=== PATIENT | female | born 1940 ===

== ENCOUNTER 2016-08-26 14:40 | Observation (INO) | payer MEDICARE, MEDICAID ==
[2016-08-26 14:40] VITALS: BMI 27.6
--- NOTE | 2016-08-26 15:06 | ED PDOC ---
HPI: Psych/Substance Abuse Time Seen by Provider: 08/26/16 14:48 Chief Complaint (Nursing): Psychiatric Evaluation Chief Complaint (Provider): Psychiatric Evaluation History Per: EMS, Other (Police) History/Exam Limitations: no limitations Onset/Duration Of Symptoms: Hrs Current Symptoms Are (Timing): Gone Now Additional Complaint(s): Maggi Appiah is a 76 year old female that was brought to the ED via EMS after the patient's social science manager called 911 because the patient was refusing to take her medication for schizophrenia and expressed homicidal ideations. According to police, mobile crisis was on the scene. Patient denies any CP, SOB , or muscle weakness. She is calm and cooperative in ED. Past Medical History Reviewed: Historical Data, Nursing Documentation, Vital Signs Vital Signs: Last Vital Signs Temp 98.2 F 08/26/16 14:43 Pulse 69 08/26/16 14:43 Resp 16 08/26/16 14:43 BP 163/79 H 08/26/16 14:43 Pulse Ox 98 08/26/16 14:43 - Medical History PMH: Anxiety, Bipolar Disorder, Diabetes (type II), HTN, Hypercholesterolemia, Schizophrenia Denies: Hepatitis, HIV, Chronic Kidney Disease, Seizures, Sexually Transmitted Disease - Surgical History Surgical History: Appendectomy - Family History Family History: States: Unknown Family Hx - Home Medications Home Medications: Ambulatory Orders Medication Instructions Recorded Aspirin [Ecotrin] 81 mg PO DAILY 08/26/16 Atorvastatin [Lipitor] 40 mg PO HS 08/26/16 Carvedilol [Coreg] 25 mg PO BID 08/26/16 Cholecalciferol [Vitamin D 1000 IU] 1,000 unit PO DAILY 08/26/16 Divalproex [Depakote] 500 mg PO BID 08/26/16 Famotidine [Pepcid] 20 mg PO BID 08/26/16 Hydrochlorothiazide [Microzide] 12.5 mg PO DAILY 08/26/16 Lisinopril [Zestril] 20 mg PO BID 08/26/16 Olanzapine [Zyprexa] 5 mg PO DAILY 08/26/16 Sennosides A and B [Senokot Tab] 1 tab PO DAILY 08/26/16 amLODIPine [Norvasc] 5 mg PO DAILY 08/26/16 - Allergies Allergies/Adverse Reactions: Allergies Allergy/AdvReac Type Severity Reaction Status Date / Time No Known Allergies Allergy Verified 03/05/16 16:38 Review of Systems Constitutional: Negative for: Weakness Cardiovascular: Negative for: Chest Pain Respiratory: Negative for: Shortness of Breath Psych: Negative for: Suicidal ideation (currently denies SI/HI) Physical Exam - Reviewed Nursing Documentation Reviewed: Yes Vital Signs Reviewed: Yes - Physical Exam Appears: Positive for: Non-toxic, No Acute Distress (Patient is calm and cooperative. ) Head Exam: Positive for: ATRAUMATIC, NORMOCEPHALIC Skin: Positive for: Normal Color, Warm Cardiovascular/Chest: Positive for: Regular Rate, Rhythm. Negative for: Murmur Respiratory: Positive for: Normal Breath Sounds. Negative for: Wheezing Neurologic/Psych: Positive for: Alert, Oriented. Negative for: Motor/Sensory Deficits - Laboratory Results Result Diagrams: 08/26/16 15:13 08/26/16 15:13 - ECG O2 Sat by Pulse Oximetry: 98 (RA) Pulse Ox Interpretation: Normal Medical Decision Making Medical Decision Making: Impression: Psychiatric Evaluation Plan: * CMP * CBC * Alcohol Serum * Troponin I * Urine Culture * Urinalysis * EKG * Chest X-Ray * Crisis Evaluation * 1:1 Observation Endorsed pending US for clearance for [facility] evaluation. Ativan and Haldol given for psychosis/delusions and aggression. Scribe Attestation: Documented by Dionne Whatley, acting as a scribe for Zita Chatterjee PA-C. Provider Scribe Attestation: All medical record entries made by the Scribe were at my direction and personally dictated by me. I have reviewed the chart and agree that the record accurately reflects my personal performance of the history, physical exam, medical decision making, and the department course for this patient. I have also personally directed, reviewed, and agree with the discharge instructions and disposition. Disposition - Clinical Impression Clinical Impression: Psychosis - Patient ED Disposition Is Patient to be Admitted: No - Disposition Disposition: Transfer of Care Disposition Time: 00:00 Condition: STABLE
[2016-08-26 15:24] LABS: MEAN CELL VOLUME 95.1 fl (81.0-99.0); MEAN CORPUSCULAR HEMOGLOBIN 32.2 pg (27.0-31.0); MEAN CORPUSCULAR HGB CONC 33.9 g/dL (33.0-37.0); RBC 4.03 Mil/uL (3.80-5.20); RED CELL DISTRIBUTION WIDTH 15.3 % (11.5-14.5); WHITE BLOOD COUNT 6.3 K/uL (4.8-10.8)
[2016-08-26 15:39] LABS: ALB/GLOB RATIO 1.1 (1.0-2.1); ALT/SGPT 105 U/L (9-52); AST/SGOT 115 U/L (14-36); BLOOD UREA NITROGEN 20 mg/dl (7-17); GFR AFRICAN-AMERICAN > 60; GFR NON-AFRICAN AMERICAN > 60
--- NOTE | 2016-08-26 16:47 | RAD ---
HISTORY: psychiatric evaluation COMPARISON: Chest x-ray performed 03/10/16, CTA chest performed 03/11/16 TECHNIQUE: Chest, one view. FINDINGS: LUNGS: Triangular opacity within the right lateral lung apex may be related to pleural thickening and summation artifact; correlate clinically. Please note that chest x-ray has limited sensitivity for the detection of pulmonary masses. PLEURA: No significant pleural effusion identified. No definite pneumothorax . CARDIOVASCULAR: Heart size appears top normal. OSSEOUS STRUCTURES: Degenerative changes of the spine and shoulders. Osseous demineralization. VISUALIZED UPPER ABDOMEN: Unremarkable. OTHER FINDINGS: None. IMPRESSION: Triangular opacity within the right lateral lung apex may be related to pleural thickening and summation artifact; correlate clinically. Chest PA and lateral may be considered for further assessment. Alternatively, a CT of the chest may be considered.
[2016-08-26 18:31] LABS: SQUAMOUS EPITHIAL < 1 /hpf (0-5); URINE BILIRUBIN NEGATIVE (NEGATIVE); URINE BLOOD NEGATIVE (NEGATIVE); URINE CLARITY CLEAR (Clear); URINE COLOR STRAW (YELLOW); URINE GLUCOSE (UA) NEG (Normal); URINE LEUKOCYTE ESTERASE TRACE Leu/uL (Negative); URINE NITRATE NEGATIVE (NEGATIVE); URINE PROTEIN NEGATIVE (NEGATIVE); URINE UROBILINOGEN 0.2-1.0 mg/dL (0.2-1.0)
[2016-08-26 18:51] LABS: BARBITURATES, UR NEGATIVE (NEGATIVE); BENZODIAZEPINES, UR NEGATIVE (NEGATIVE); OPIATES, UR NEGATIVE (NEGATIVE); PHENCYCLIDINE, UR NEGATIVE (NEGATIVE)
--- NOTE | 2016-08-27 01:49 | US ---
EXAM: US Abdomen Limited, Right Upper Quadrant CLINICAL HISTORY: 76 years old, female; Abnormal findings; Abnormal lab test; Elevated liver enzymes; Additional info: Abnormal lfts TECHNIQUE: Real-time ultrasound of the right upper quadrant with image documentation. EXAM DATE/TIME: 08/26/2016 4:02 PM COMPARISON: There are no prior studies for comparison. FINDINGS: Liver: Hepatic texture is mildly heterogeneous. There is hepatopedal flow in the main portal vein. Gallbladder: Gallbladder is distended with no stones, sludge or wall thickening. Common bile duct: Common bile duct measures 4.3 mm in diameter. Pancreas: Pancreas is partially obscured by bowel gas. Visualized portion is echogenic. Right kidney: Right kidney is not optimally demonstrated. There are multiple right renal cysts. Aorta: Visualized portions of the aorta and inferior vena cava are unremarkable. IMPRESSION: No gallstones or ductal dilatation; limited evaluation of the pancreas; multiple renal cysts
--- NOTE | 2016-08-27 01:50 | ED PDOC ---
- Laboratory Results Result Diagrams: 08/26/16 15:13 08/26/16 15:13 - ECG O2 Sat by Pulse Oximetry: 98 (RA) - Progress ED Course And Treament: case signed out to creative services writer pending US for elevated LFTs pt required [facility] [place] Pt stable in ED at this time. Medical Decision Making Medical Decision Making: US: FINDINGS: Liver: Hepatic texture is mildly heterogeneous. There is hepatopedal flow in the main portal vein. Gallbladder: Gallbladder is distended with no stones, sludge or wall thickening. Common bile duct: Common bile duct measures 4.3 mm in diameter. Pancreas: Pancreas is partially obscured by bowel gas. Visualized portion is echogenic. Right kidney: Right kidney is not optimally demonstrated. There are multiple right renal cysts. Aorta: Visualized portions of the aorta and inferior vena cava are unremarkable. IMPRESSION: No gallstones or ductal dilatation; limited evaluation of the pancreas; multiple renal cysts Thank you for allowing us to participate in the care of your patient. Dictated and Authenticated by: Eleni Daniels MD 08/27/2016 1:48 AM Eastern Time ([place] & [place]) Pt is medically stable for [facility] [place] at this time. Disposition - Clinical Impression Clinical Impression: Psychosis - POA Present On Arrival: None - Disposition Disposition: Transfer of Care Disposition Time: 06:00 Patient Signed Over To: Jamel Reed ([facility]) Progress Note - Review of Symptoms General: No: Chills, Night Sweats, Fatigue, Malaise, Appetite, Other HEENT: No: Head Aches, Visual Changes, Eye Pain, Ear Pain, Dysphasia, Sinus Congestion, Post Nasal Drip, Sore Throat, Other Pulmonary: No: Dyspnea, Cough, Pleuritic Chest Pain, Other Cardiovascular: No: Chest Pain, Palpitations, Orthopnea, Paroxysmal Noc. Dyspnea , Edema, Light Headedness, Other Gastrointestinal: No: Nausea, Vomiting, Abdominal Pain, Diarrhea, Constipation, Melena, Hematochezia, Other Genitourinary: No: Dysuria, Frequency, Incontinence, Hematuria, Retention, Other Musculoskeletal: No: Muscle Pain, Joint Pain, Other Neurological: No: Weakness, Numbness, Incoordination, Change in speech, Confusion, Seizures, Other
--- NOTE | 2016-08-27 05:50 | ED PDOC ---
- Laboratory Results Result Diagrams: 08/26/16 15:13 08/26/16 15:13 - ECG O2 Sat by Pulse Oximetry: 98 (RA) Medical Decision Making Medical Decision Making: Patient s/o from [facility] at 0600 pending [facility] screening. Patient s/o to Dr. Cabrera at 0700 pending [facility] screening. Scribe Attestation: Documented by Narinder Yeh acting as a scribe for Jamel Reed MD. Provider Scribe Attestation: All medical record entries made by the Scribe were at my direction and personally dictated by me. I have reviewed the chart and agree that the record accurately reflects my personal performance of the history, physical exam, medical decision making, and the department course for this patient. I have also personally directed, reviewed, and agree with the discharge instructions and disposition. Disposition - Clinical Impression Clinical Impression: Psychosis - POA Present On Arrival: None - Disposition Disposition: Transfer of Care Disposition Time: 07:00 Condition: STABLE Patient Signed Over To: Luke Cabrera Handoff Comments: pending [facility] screening
--- NOTE | 2016-08-27 11:35 | CP.PCM.CON ---
History of Present Illness - History of Present Illness History of Present Illness: Psychiatry consult note CC: "I want to go home" HPI: 76 year old female brought to this ED by EMS. As per triage note, Pts social worker health services called 911 during home visit secondary to Pt expressing homicidal ideations. Pt is very hostile with this freelance copywriter reporting that she hates social workers and will not speak to them. After this freelance copywriter explained to Pt that this freelance copywriter was not a social worker health services she reported that she still wants to hurt this freelance copywriter by "sticking something between this writers legs". She was also observed to be very hostile and saying profanities to staff. Pt reports that she is at the hospital because she is with twins. Pt is paranoid that someone will touch her babies and reports she wants to sign something stating that no one will touch her babies. She also reports that her is here and is a doctor and reports she will know if anyone touches him, however, Pts is not present. Pt appears bizarre, delusional and tangential. At this time, Pt is refusing admission and appears to be in acute psychiatric distress. Pt will be referred to [facility] for screening. Patient continues to be delusional, stating that she is . She continues to believe that she does not have any acute medical or psychiatric problems. She can not understand why she is in the hospital, nor is she able to state the risks/benefits of receiving treatment. She believes that her only problem is allergies. Past Psychiatry History: History of schizoaffective disorder, multiple psychiatric admissions. Pt has prior admissions to [facility] and [facility]. As per Pt's psychiatrist, Dr. Mckeon, Pt was recently d/c from [facility] where she spent a "long time". Pts psychiatrist reports at this time she does not have exact dates as she does not have access to Pt record at this time. Medical history: H/o [place], CAD, chronic mild hyponatremia, DM, HTN Social History: Lives alone, from , no children; No drugs, alcohol; Pt's only family is nephew Nicolas Lindoz [phone]. From the Family History-No known family history of psychiatric illness Allergies: NKDA MSE: MSE: A + O x person, location. calm and cooperative. good eye contact. speech normal. mood "good". affect-full range. NO AH/VH/SI/HI. +Various delusions. Poor insight and judgment. Impression: 76 yo female, with history of Schizoaffective Disorder, DM , HTN, presents acutely decompensated in the setting Recommendation: -Screen for involuntary admission. Past Patient History - Infectious Disease Hx of Infectious Diseases: None - Past Medical History & Family History Past Medical History?: Yes - Past Social History Smoking Status: Never Smoked - CARDIAC Hx Hypercholesterolemia: Yes Hx Hypertension: Yes - PULMONARY Hx Tuberculosis: No - NEUROLOGICAL Hx Seizures: No - HEENT Hx HEENT Problems: No - RENAL Hx Chronic Kidney Disease: No - ENDOCRINE/METABOLIC Hx Diabetes Mellitus Type 2: Yes - HEMATOLOGICAL/ONCOLOGICAL Hx Human Immunodeficiency Virus (HIV): No - INTEGUMENTARY Hx Dermatological Problems: No - MUSCULOSKELETAL/RHEUMATOLOGICAL Hx Falls: Yes - GASTROINTESTINAL Hx Gastrointestinal Disorders: Yes Hx Constipation: Yes - GENITOURINARY/GYNECOLOGICAL Hx Sexually Transmitted Disorders: No - PSYCHIATRIC Hx Anxiety: Yes Hx Bipolar Disorder: Yes Hx Schizophrenia: Yes - SURGICAL HISTORY Hx Appendectomy: Yes - ANESTHESIA Hx Anesthesia: Yes Hx Anesthesia Reactions: No Meds Allergies/Adverse Reactions: Allergies Allergy/AdvReac Type Severity Reaction Status Date / Time No Known Allergies Allergy Verified 03/05/16 16:38 Results - Vital Signs Recent Vital Signs: Last Vital Signs Temp 97.7 F 08/27/16 08:21 Pulse 59 L 08/27/16 08:21 Resp 19 08/27/16 08:21 BP 172/76 H 08/27/16 08:21 Pulse Ox 99 08/27/16 08:21 - Labs Result Diagrams: 08/26/16 15:13 08/26/16 15:13 Labs: Laboratory Results - last 24 hr 08/26/16 08/26/16 18:15 18:15 Urine Color Straw Urine Clarity Clear Urine pH 7.0 Ur Specific [place] 1.009 Urine Protein Negative Urine Glucose (UA) Neg Urine Ketones Negative Urine Blood Negative Urine Nitrate Negative Urine Bilirubin Negative Urine Urobilinogen 0.2-1.0 Ur Leukocyte Esterase Trace Urine RBC (Auto) < 1 Urine Microscopic WBC 8 H Ur Squamous Epith Cells < 1 Urine Opiates Screen Negative Urine Methadone Screen Negative Ur Barbiturates Screen Negative Ur Phencyclidine Scrn Negative Ur Amphetamines Screen Negative U Benzodiazepines Scrn Negative U Oth Cocaine Metabols Negative U Cannabinoids Screen Negative
--- NOTE | 2016-08-27 21:07 | ED PDOC ---
- Laboratory Results Result Diagrams: 08/26/16 15:13 08/26/16 15:13 - ECG O2 Sat by Pulse Oximetry: 97 - Progress ED Course And Treament: pt is stable in ED pending [facility] disposition. Medical Decision Making Medical Decision Making: Pt has accepted [facility] and will be transfered. PT stable and well appearing. Disposition - Clinical Impression Clinical Impression: Psychosis - POA Present On Arrival: None - Disposition Disposition: Discharged to [facility] Hospital Disposition Time: 01:43 Condition: STABLE Progress Note - Review of Symptoms General: No: Chills, Night Sweats, Fatigue, Malaise, Appetite, Other HEENT: No: Head Aches, Visual Changes, Eye Pain, Ear Pain, Dysphasia, Sinus Congestion, Post Nasal Drip, Sore Throat, Other Pulmonary: No: Dyspnea, Cough, Pleuritic Chest Pain, Other Cardiovascular: No: Chest Pain, Palpitations, Orthopnea, Paroxysmal Noc. Dyspnea , Edema, Light Headedness, Other Gastrointestinal: No: Nausea, Vomiting, Abdominal Pain, Diarrhea, Constipation, Melena, Hematochezia, Other Genitourinary: No: Dysuria, Frequency, Incontinence, Hematuria, Retention, Other Musculoskeletal: No: Muscle Pain, Joint Pain, Other Neurological: No: Weakness, Numbness, Incoordination, Change in speech, Confusion, Seizures, Other
[2016-08-28 01:38] VITALS: BP 134/72; PULSE 68; RESP 16; TEMP 98
--- NOTE | 2016-08-28 11:48 | CARD ---
APPROVED REPORT EKG Measurement Heart [id number] [place] [id number] <Conclusion> Sinus bradycardia with premature atrial complexes Left axis deviation Voltage criteria for left ventricular hypertrophy Abnormal ECG
[2016-08-28 14:46] VITALS: O2SAT 98
== END 2016-08-28 03:15 | disposition short-term general hospital (02) ==
LOC: H.ER 14:40 → H.EROBSV 17:52
PROVIDERS: ADMIT Emergency Medicine; ATTEND Emergency Medicine
DX: F25.9 Schizoaffective disorder, unspecified (principal); E11.9 Type 2 diabetes mellitus without complications; E78.00 Pure hypercholesterolemia, unspecified; F31.9 Bipolar disorder, unspecified; I10 Essential (primary) hypertension; I25.10 Atherosclerotic heart disease of native coronary artery without angina pectoris; I25.2 Old myocardial infarction; R45.850 Homicidal ideations; Z79.899 Other long term (current) drug therapy; Z90.49 Acquired absence of other specified parts of digestive tract; F41.9 Anxiety disorder, unspecified
CPT/HCPCS: 71010; 76705; 80053; 81003; 82948; 84484; 85027; 87086; 93005; 96372; 99284; G0378; G0480; J1630; J2060

== ENCOUNTER 2017-02-25 12:23 | Emergency (ER) | payer MEDICAID, MEDICARE ==
[2017-02-25 12:23] VITALS: BMI 27.6
--- NOTE | 2017-02-25 13:18 | ED PDOC ---
HPI: Psych/Substance Abuse Time Seen by Provider: 02/25/17 12:33 Chief Complaint (Nursing): Altered Mental Status History Per: Patient History/Exam Limitations: no limitations Current Symptoms Are (Timing): Still Present Severity: Moderate Associated Symptoms: Anxiety, Agitation, Paranoia. denies: Suicidal Thoughts, Suicidal Plan Involuntary Hold By: Emergency Physician Additional History Per: Patient, EMS Additional Complaint(s): h/o of schizophrenia, pt refuses to answer question brought in by police and ems fo acute paranoia pt non compliant with meds Past Medical History Reviewed: Historical Data, Nursing Documentation, Vital Signs Vital Signs: Last Vital Signs Temp 97.6 F 02/25/17 12:32 Pulse 109 H 02/25/17 12:32 Resp 18 02/25/17 12:32 BP Pulse Ox 99 02/25/17 12:32 - Medical History PMH: Anxiety, Bipolar Disorder, Diabetes (type II), HTN, Hypercholesterolemia, Schizophrenia Denies: Hepatitis, HIV, Chronic Kidney Disease, Seizures, Sexually Transmitted Disease - Surgical History Surgical History: Appendectomy - Family History Family History: States: Unknown Family Hx - Living Arrangements Living Arrangements: With Family - Social History Current smoker - smoking cessation education provided: No - Home Medications Home Medications: Ambulatory Orders Medication Instructions Recorded Aspirin [Ecotrin] 81 mg PO DAILY 08/26/16 Atorvastatin [Lipitor] 40 mg PO HS 08/26/16 Carvedilol [Coreg] 25 mg PO BID 08/26/16 Cholecalciferol [Vitamin D 1000 IU] 1,000 unit PO DAILY 08/26/16 Divalproex [Depakote] 500 mg PO BID 08/26/16 Famotidine [Pepcid] 20 mg PO BID 08/26/16 Hydrochlorothiazide [Microzide] 12.5 mg PO DAILY 08/26/16 Lisinopril [Zestril] 20 mg PO BID 08/26/16 Olanzapine [Zyprexa] 5 mg PO DAILY 08/26/16 Sennosides A and B [Senokot Tab] 1 tab PO DAILY 08/26/16 amLODIPine [Norvasc] 5 mg PO DAILY 08/26/16 - Allergies Allergies/Adverse Reactions: Allergies Allergy/AdvReac Type Severity Reaction Status Date / Time No Known Allergies Allergy Verified 02/25/17 12:26 Review of Systems Review Of Systems: ROS cannot be obtained secondary to pt's inabilty to answer questions. (refuses to answer) Physical Exam - Reviewed Nursing Documentation Reviewed: Yes Vital Signs Reviewed: Yes - Physical Exam Appears: Positive for: Uncomfortable Head Exam: Positive for: ATRAUMATIC, NORMAL INSPECTION, NORMOCEPHALIC Eye Exam: Positive for: Normal appearance, EOMI Neck: Positive for: Normal, Painless ROM, Supple Cardiovascular/Chest: Positive for: Regular Rate, Rhythm, Chest Non Tender. Negative for: Edema, Gallop, Murmur, Bradycardia, Tachycardia Respiratory: Positive for: Normal Breath Sounds. Negative for: Decreased Breath Sounds, Accessory Muscle Use, Crackles, Rales, Rhonchi, Stridor, Wheezing , Respiratory Distress Gastrointestinal/Abdominal: Positive for: Normal Exam, Bowel Sounds, Soft. Negative for: Tenderness Extremity: Positive for: Normal ROM. Negative for: Tenderness, Pedal Edema, Calf Tenderness, Capillary Refill, Deformity, Swelling Neurologic/Psych: Positive for: Alert, testing tech II-XII, Oriented, Mood/Affect ( animated agitated threatening and swearing at staff). Negative for: Motor/ Sensory Deficits, Aphasia, Facial Droop - Laboratory Results Result Diagrams: 02/25/17 14:17 02/25/17 14:17 - ECG ECG: Positive for: Interpreted By Me ECG Rhythm: Positive for: Normal QRS, Normal ST Segment, Sinus Rhythm. Negative for: ST/T Changes O2 Sat by Pulse Oximetry: 99 Pulse Ox Interpretation: Normal - Radiology X-Ray: Interpreted by Me X-Ray Interpretation: No Acute Disease Disposition - Clinical Impression Clinical Impression: Schizophrenia - Patient ED Disposition Is Patient to be Admitted: Transfer of Care Counseled Patient/Family Regarding: Studies Performed, Diagnosis, Need For Followup - Disposition Disposition: Transfer of Care Disposition Time: 18:00 Condition: STABLE Forms: [employer] (Beninese) Psych Transfer Clearance - Clearance Statement Clearance Statement: Reviewed vital signs, lab results and transfer papers. Patient clinically stable for psychiatric admission.
[2017-02-25 14:38] LABS: ALB/GLOB RATIO 1.2 (1.0-2.1); ALCOHOL SERUM < 10 mg/dl (0-10); ALKALINE PHOSPHATASE 122 U/L (38-126); ALT/SGPT 33 U/L (9-52); AST/SGOT 33 U/L (14-36); BILIRUBIN,TOTAL 0.5 mg/dl (0.2-1.3); BLOOD UREA NITROGEN 11 mg/dl (7-17); CALCIUM 9.3 mg/dL (8.4-10.2); CARBON DIOXIDE 29 mmol/L (22-30); CHLORIDE 101 mmol/L (98-107); GFR AFRICAN-AMERICAN > 60; GLUCOSE,RANDOM 192 mg/dL (65-105); POTASSIUM 3.6 MMOL/L (3.6-5.0); SODIUM 137 mmol/l (132-148); TOTAL PROTEIN 7.6 G/DL (6.3-8.2)
[2017-02-25 14:57] LABS: BASO % 0.5 % (0.0-2.0); EOS % 0.7 % (0.0-4.0); LYMPH # 0.8 K/uL (1.0-4.3); LYMPH % 11.9 % (20.0-40.0); MEAN CELL VOLUME 86.2 fl (81.0-99.0); MEAN CORPUSCULAR HEMOGLOBIN 28.9 pg (27.0-31.0); MEAN CORPUSCULAR HGB CONC 33.5 g/dL (33.0-37.0); MEAN PLATELET VOLUME 8.9 fl (7.2-11.7); MONO # 0.7 K/uL (0.0-0.8); MONO % 9.9 % (0.0-10.0); NEUT # 5.2 K/uL (1.8-7.0); NRBC % 0.1 % (0.0-0.0); RED CELL DISTRIBUTION WIDTH 13.3 % (11.5-14.5); WHITE BLOOD COUNT 6.7 K/uL (4.8-10.8)
[2017-02-25 18:21] LABS: RBC URINE 3 /hpf (0-3); URINE BACTERIA MOD (<OCC); URINE BILIRUBIN NEGATIVE (NEGATIVE); URINE BLOOD NEGATIVE (NEGATIVE); URINE COLOR YELLOW (YELLOW); URINE GLUCOSE (UA) NEG (Normal); URINE KETONE TRACE mg/dL (NEGATIVE); URINE LEUKOCYTE ESTERASE LARGE Leu/uL (Negative); URINE PROTEIN 100 mg/dL (NEGATIVE); URINE UROBILINOGEN 0.2-1.0 mg/dL (0.2-1.0); WBC URINE 306 /hpf (0-5)
--- NOTE | 2017-02-25 18:53 | RAD ---
HISTORY: Unspecified crisis and altered mental status. COMPARISON: 08/26/2016. FINDINGS: LUNGS: No active pulmonary disease. PLEURA: No significant pleural effusion identified, no pneumothorax apparent. CARDIOVASCULAR: No radiographic findings to suggest acute or significant cardiovascular disease. OSSEOUS STRUCTURES: No significant abnormalities. VISUALIZED UPPER ABDOMEN: Normal. OTHER FINDINGS: None. IMPRESSION: No active disease. No significant interval change compared to the prior examination(s).
--- NOTE | 2017-02-25 19:43 | ED PDOC ---
- Laboratory Results Result Diagrams: 02/25/17 14:17 02/25/17 14:17 - ECG O2 Sat by Pulse Oximetry: 99 Medical Decision Making Medical Decision Makin:00 -Patient signed out to me by Luke Cabrera, pending [facility] evaluation Time: 03:43 --Patient's UTI was treated with Cipro. Patient was accepted by [facility], pending bed availability. 0700 --Pt. medically cleared. Pending bed availability at [facility]. Will endorse to day team, Dr. Reed. Scribe Attestation: Documented by Paula Moon, acting as a scribe for Dev Johnson MD Provider Scribe Attestation: All medical record entries made by the Scribe were at my direction and personally dictated by me. I have reviewed the chart and agree that the record accurately reflects my personal performance of the history, physical exam, medical decision making, and the department course for this patient. I have also personally directed, reviewed, and agree with the discharge instructions and disposition. Disposition - Clinical Impression Clinical Impression: Schizophrenia - POA Present On Arrival: None - Disposition Disposition: Transfer of Care Disposition Time: 07:00 Condition: STABLE Forms: [employer] (Arabic) Patient Signed Over To: Jamel Reed
--- NOTE | 2017-02-26 07:07 | ED PDOC ---
- Laboratory Results Result Diagrams: 02/25/17 14:17 02/25/17 14:17 - ECG O2 Sat by Pulse Oximetry: 99 Medical Decision Making Medical Decision Makin:00 Patient signed out to me by Dr. Johnson pending [place] [facility] 13:10 Patient [place] [facility] will be transferred. Clinical Impression: Schizophrenia Scribe Attestation: Documented by Dionne Whatley, acting as a scribe for Jamel Reed MD. Provider Scribe Attestation: All medical record entries made by the Scribe were at my direction and personally dictated by me. I have reviewed the chart and agree that the record accurately reflects my personal performance of the history, physical exam, medical decision making, and the department course for this patient. I have also personally directed, reviewed, and agree with the discharge instructions and disposition. Disposition - Clinical Impression Clinical Impression: Schizophrenia - POA Present On Arrival: None - Disposition Disposition: Transfer of Care ([place] [facility] Disposition Time: 13:10 Condition: STABLE Forms: [employer] (Iraqi)
--- NOTE | 2017-02-26 09:01 | CP.PCM.CON ---
History of Present Illness - History of Present Illness History of Present Illness: Psychiatry consult note CC: "You arent my doctor, you cant tell me what to do." HPI: 77 y/o female who was brought into ED by EMS secondary to the social media specialist calling 911. Pt stated she does not know why she is in ED. Pt stated the police and social media specialist knocked at her door. She stated she just take her vitamins and does not know anything about her psychiatric meds. Pt denied s/h ideations, as well as, a/v hallucinations. Pt stated she does not need psych admission and stated she will not sign into the psychiatric unit if offered admission. Pt denied any psych complaints. Pt was calm and cooperative during assessment. However, please note, when pt arrived pt was screaming and cursing at ED staff. Pt did not seem to have good insight about her mental illness. ER facility maintenance worker spoke to pts Amie, from [phone], and she stated they go out see the pt daily. Pt has been refusing all meds for the past week, slowly decompensating and not at baseline. Pt is paranoid, leaving garbage and cooked food in the hallway. Pt has increased aggression and threatened to kill one of her co-workers and police today. She stated pt was in [facility] and just discharged less than 2 months ago. She stated pt is stating her meds makes her dizziness. She stated pt has dx of Schizoaffective Bipolar Disorder and is only on Zyprexa 30mg. She stated pt needs a med adjustment and she be on another psychotropic medication. She stated pt has been with their agency for years and was stable, but stated she is not stable now. She stated pt Dr. Diamond but she left and right now pt does not have a psychiatrist and is unsure when pt last seen Dr. Diamond. She stated pt needs psych admission. Patient continues to be delusional, stating that she is . She continues to believe that she does not have any acute medical or psychiatric problems. She can not understand why she is in the hospital, nor is she able to state the risks/benefits of receiving treatment. Past Psychiatry History: History of schizoaffective disorder, multiple psychiatric admissions. Medical history: H/o OR, CAD, chronic mild hyponatremia, DM, HTN Social History: Lives alone, from , no children; No drugs, alcohol; Pt's only family is nephew Nicolas Simmons [phone]. From the Family History-No known family history of psychiatric illness Allergies: NKDA MSE: A + O x person, Jan 2017. calm and cooperative. good eye contact. speech normal. mood "good". affect-full range. NO AH/VH/SI/HI. +Various delusions. Poor insight and judgment. Impression: 77 yo female, with history of Schizoaffective Disorder, DM , HTN, presents acutely decompensated, screened for involuntary admission and accepted, pending transfer. -Involuntary admission when bed available at [facility] [place] Past Patient History - Infectious Disease Hx of Infectious Diseases: None - Past Medical History & Family History Past Medical History?: Yes - Past Social History Smoking Status: Never Smoked - CARDIAC Hx Hypercholesterolemia: Yes Hx Hypertension: Yes - PULMONARY Hx Tuberculosis: No - NEUROLOGICAL Hx Seizures: No - HEENT Hx HEENT Problems: No - RENAL Hx Chronic Kidney Disease: No - ENDOCRINE/METABOLIC Hx Diabetes Mellitus Type 2: Yes - HEMATOLOGICAL/ONCOLOGICAL Hx Human Immunodeficiency Virus (HIV): No - INTEGUMENTARY Hx Dermatological Problems: No - MUSCULOSKELETAL/RHEUMATOLOGICAL Hx Falls: Yes - GASTROINTESTINAL Hx Gastrointestinal Disorders: Yes Hx Constipation: Yes - GENITOURINARY/GYNECOLOGICAL Hx Sexually Transmitted Disorders: No - PSYCHIATRIC Hx Anxiety: Yes Hx Bipolar Disorder: Yes Hx Schizophrenia: Yes - SURGICAL HISTORY Hx Appendectomy: Yes - ANESTHESIA Hx Anesthesia: Yes Hx Anesthesia Reactions: No Meds Allergies/Adverse Reactions: Allergies Allergy/AdvReac Type Severity Reaction Status Date / Time No Known Allergies Allergy Verified 02/25/17 12:26 Results - Vital Signs Recent Vital Signs: Last Vital Signs Temp 97.7 F 02/26/17 08:17 Pulse 94 H 02/26/17 08:17 Resp 24 02/26/17 08:17 BP 157/74 H 02/26/17 08:17 Pulse Ox 95 02/26/17 08:17 - Labs Result Diagrams: 02/25/17 14:17 02/25/17 14:17 Labs: Laboratory Results - last 24 hr 02/25/17 02/25/17 02/25/17 14:17 14:17 14:17 WBC 6.7 RBC 5.10 Hgb 14.7 Hct 44.0 MCV 86.2 D MCH 28.9 MCHC 33.5 RDW 13.3 Plt Count 280 MPV 8.9 Neut % (Auto) 77.0 H Lymph % (Auto) 11.9 L [place] % (Auto) 9.9 Eos % (Auto) 0.7 Baso % (Auto) 0.5 Neut # 5.2 Lymph # 0.8 L [place] # 0.7 Eos # 0.0 Baso # 0.0 Sodium 137 Potassium 3.6 Chloride 101 Carbon Dioxide 29 Anion Gap 11 BUN 11 Creatinine 0.7 Est GFR ( Amer) > 60 Est GFR (Non-Af Amer) > 60 POC Glucose (mg/dL) Random Glucose 192 H Calcium 9.3 Total Bilirubin 0.5 AST 33 ALT 33 Alkaline Phosphatase 122 Total Protein 7.6 Albumin 4.2 Globulin 3.4 Albumin/Globulin Ratio 1.2 Urine Color Urine Clarity Urine pH Ur Specific [place] Urine Protein Urine Glucose (UA) Urine Ketones Urine Blood Urine Nitrate Urine Bilirubin Urine Urobilinogen Ur Leukocyte Esterase Urine RBC (Auto) Urine Microscopic WBC Ur Squamous Epith Cells Urine Bacteria Hyaline Casts Salicylates < 1.0 Urine Opiates Screen Urine Methadone Screen Acetaminophen < 10.0 L Ur Barbiturates Screen Ur Phencyclidine Scrn Ur Amphetamines Screen U Benzodiazepines Scrn U Oth Cocaine Metabols U Cannabinoids Screen Alcohol, Quantitative < 10 02/25/17 02/25/17 02/25/17 18:01 18:01 20:20 WBC RBC Hgb Hct MCV MCH MCHC RDW Plt Count MPV Neut % (Auto) Lymph % (Auto) [place] % (Auto) Eos % (Auto) Baso % (Auto) Neut # Lymph # [place] # Eos # Baso # Sodium Potassium Chloride Carbon Dioxide Anion Gap BUN Creatinine Est GFR ( Amer) Est GFR (Non-Af Amer) POC Glucose (mg/dL) 141 H Random Glucose Calcium Total Bilirubin AST ALT Alkaline Phosphatase Total Protein Albumin Globulin Albumin/Globulin Ratio Urine Color Yellow Urine Clarity Cloudy Urine pH 6.0 Ur Specific [place] 1.008 Urine Protein 100 Urine Glucose (UA) Neg Urine Ketones Trace Urine Blood Negative Urine Nitrate Negative Urine Bilirubin Negative Urine Urobilinogen 0.2-1.0 Ur Leukocyte Esterase Large Urine RBC (Auto) 3 Urine Microscopic WBC 306 H Ur Squamous Epith Cells 1 Urine Bacteria Mod H Hyaline Casts 0-2 Salicylates Urine Opiates Screen Negative Urine Methadone Screen Negative Acetaminophen Ur Barbiturates Screen Negative Ur Phencyclidine Scrn Negative Ur Amphetamines Screen Negative U Benzodiazepines Scrn Negative U Oth Cocaine Metabols Negative U Cannabinoids Screen Negative Alcohol, Quantitative
--- NOTE | 2017-02-26 09:25 | CARD ---
APPROVED REPORT EKG Measurement Heart [id number] 200P73 [id number] <Conclusion> Normal sinus rhythm Left axis deviation Left ventricular hypertrophy with repolarization abnormality Abnormal ECG
[2017-02-26 13:58] VITALS: BP 132/74; PULSE 104; RESP 17; TEMP 99.1
[2017-03-02 04:22] VITALS: O2SAT 99
== END 2017-02-26 14:04 | disposition short-term general hospital (02) ==
LOC: H.ER 12:23
DX: F25.9 Schizoaffective disorder, unspecified (principal); E11.9 Type 2 diabetes mellitus without complications; E78.00 Pure hypercholesterolemia, unspecified; F31.9 Bipolar disorder, unspecified; F41.9 Anxiety disorder, unspecified; I10 Essential (primary) hypertension; I25.10 Atherosclerotic heart disease of native coronary artery without angina pectoris; I25.2 Old myocardial infarction; K59.00 Constipation, unspecified
CPT/HCPCS: 71010; 80053; 81003; 82948; 85025; 87086; 87181; 93005; 96372; 99285; G0480; J1630

== ENCOUNTER 2017-07-28 08:52 | Emergency (ER) | payer MEDICARE ==
[2017-07-28 08:52] VITALS: BMI 27.6
[2017-07-28 09:25] VITALS: RESP 18
[2017-07-28] MEDS ORDERED: Albuterol-Ipratrop 3 mg / 0.5 (3 ml) UD INH STA (10:06)
--- NOTE | 2017-07-28 10:34 | ED PDOC ---
HPI: SOB/CHF/COPD Time Seen by Provider: 07/28/17 09:18 Chief Complaint (Nursing): Shortness Of Breath Chief Complaint (Provider): SOB History Per: Patient History/Exam Limitations: no limitations Additional Complaint(s): Pt reports SOB X 3 days, associated with cough with yellow sputum production. Denies fever, CP, palpitations. Past Medical History Vital Signs: Last Vital Signs Temp 97 F L 07/28/17 09:11 Pulse 81 07/28/17 09:11 Resp 18 07/28/17 09:17 BP 173/91 H 07/28/17 09:11 Pulse Ox 98 07/28/17 16:25 - Medical History PMH: Anxiety, Bipolar Disorder, Diabetes (type II), HTN, Hypercholesterolemia, Schizophrenia Denies: Hepatitis, HIV, Chronic Kidney Disease, Seizures, Sexually Transmitted Disease - Surgical History Surgical History: Appendectomy - Family History Family History: States: Unknown Family Hx - Social History Current smoker - smoking cessation education provided: No Alcohol: None - Home Medications Home Medications: Ambulatory Orders Medication Instructions Recorded Albuterol 0.083% [Albuterol 0.083% 3 ml IH Q6H PRN #30 neb 07/28/17 Inhal Mariely (2.5 mg/3 ml) UD] Aspirin [Ecotrin] 81 mg PO DAILY 07/28/17 Azithromycin [Zithromax] 250 mg PO DAILY #4 tab 07/28/17 Divalproex [Depakote ER] 1,000 mg PO HS 07/28/17 Haloperidol Decanoate [Haldol 75 mg IM Q21D 07/28/17 Decanoate--long acting] Nebulizer [Compact Compressor 1 dev XX PRN PRN #1 dev 07/28/17 Nebulizer] Olanzapine [Zyprexa] 5 mg PO HS 07/28/17 Polyethylene Glycol 3350 [Gavilax] 17 gm PO DAILY 07/28/17 Valsartan/Hydrochlorothiazide 1 tab PO DAILY 07/28/17 [Diovan Hct 160-12.5 mg Tab] - Allergies Allergies/Adverse Reactions: Allergies Allergy/AdvReac Type Severity Reaction Status Date / Time No Known Allergies Allergy Verified 07/28/17 09:10 Curb-65 Severity Score - CURB-65 Severity Score Confusion: No Bun >19mg/dl (>7mmol/L): No Respiratory Rate greater than/equal to 30: No Systolic BP <90 or Diastolic BP less than/equal 60mmHg: No Age >64: No Curb-65 Score: 0 Percentage 30-day mortality: 0.6% Wells Criteria for PE - Wells Criteria for Pulmonary Embolism Clinical Signs and Symptoms of DVT: No P.E is #1 Diagnosis, or Equally Likely: No Heart Rate >100: No Immobilization at least 3 days;Surgery previous 4 weeks: No Previous, objectively diagnosed PE or DVT: No Hemoptysis: No Malignancy w/treatment within 6 months, or palliative: No Total Score: 0 Review of Systems Constitutional: Negative for: Fever, Chills Cardiovascular: Negative for: Chest Pain, Palpitations Respiratory: Positive for: Cough, Shortness of Breath, Sputum. Negative for: Hemoptysis, SOB with Exertion, Pleuritic Pain, Wheezing Gastrointestinal: Negative for: Nausea, Vomiting, Abdominal Pain, Diarrhea Genitourinary Female: Negative for: Dysuria, Hematuria Musculoskeletal: Negative for: Back Pain Skin: Negative for: Rash, Lesions Neurological: Negative for: Headache Physical Exam - Reviewed Nursing Documentation Reviewed: Yes Vital Signs Reviewed: Yes - Physical Exam Appears: Positive for: Well, No Acute Distress (Speaking full sentences) Skin: Positive for: Normal Color, Warm, Dry Eye Exam: Positive for: Normal appearance, EOMI, PERRL Neck: Positive for: Normal Cardiovascular/Chest: Positive for: Regular Rate, Rhythm Respiratory: Positive for: Normal Breath Sounds. Negative for: Rales, Rhonchi, Wheezing Gastrointestinal/Abdominal: Positive for: Normal Exam Back: Positive for: Normal Inspection. Negative for: L CVA Tenderness, R CVA Tenderness Extremity: Positive for: Normal ROM. Negative for: Tenderness, Pedal Edema, Deformity, Swelling Neurologic/Psych: Positive for: Alert, Oriented - Laboratory Results Result Diagrams: 07/28/17 10:40 07/28/17 10:40 - ECG Interpretation Of ECG: NSR @ 82, LVH, no ST-T changes. O2 Sat by Pulse Oximetry: 98 Pulse Ox Interpretation: Normal Medical Decision Making Medical Decision Makin yo female with SOB. - labs - EKG - CXR Accession No. : [id number] Patient Name / ID : ERNESTINA GREENE / [id number] Exam Date : 07/28/2017 10:18:24 ( Approved ) Study Comment : Sex / Age : F / 77Y Creator : Kandy Walker MD Dictator : Kandy Walker MD Magnetic Tape Composer Operator : Abrasive Worker : Kandy Walker MD Approver2 : Report Date : 07/28/2017 10:37:31 My Comment : HISTORY: COMPARISON: 02/25/2017. TECHNIQUE: Chest PA and lateral FINDINGS: LINES AND TUBES: None. LUNG AND PLEURA: The lungs are well inflated and clear. There is linear atelectasis/scarring in the lingula. HEART AND MEDIASTINUM: The heart is not enlarged. The hilar and mediastinal contours are within normal limits. SKELETAL STRUCTURES: The bony structures are within normal limits for the patient's age. VISUALIZED UPPER ABDOMEN: Normal. OTHER FINDINGS: None. IMPRESSION: No active pulmonary disease. Accession No. : [id number] Patient Name / ID : ERNESTINA GREENE / [id number] Exam Date : 07/28/2017 15:03:06 ( Approved ) Study Comment : Sex / Age : F / 77Y Creator : Kandy Walker MD Dictator : Kandy Walker MD Magnetic Tape Composer Operator : Abrasive Worker : Kandy Walker MD Approver2 : Report Date : 07/28/2017 15:40:17 My Comment : PROCEDURE: CT Chest with contrast (Pulmonary Angiogram) HISTORY: Shortness of breath COMPARISON: None available. TECHNIQUE: Axial computed tomography images were obtained of the chest in the pulmonary arterial phase of enhancement. Coronal and sagittal reformatted images were created and reviewed. Intravenous contrast dose: 90 mL Visipaque 320 Radiation dose: Total exam DLP = 384.13 mGy-cm. This CT exam was performed using one or more of the following dose reduction techniques: Automated exposure control, adjustment of the mA and/or kV according to patient size, and/or use of iterative reconstruction technique. FINDINGS: PULMONARY ARTERIES: There are no filling defects in the pulmonary arteries to suggest acute pulmonary embolism. . AORTA: No acute findings. No thoracic aortic aneurysm. LUNGS: The lungs are clear. There is subsegmental atelectasis in the lower lobes. No nodule, mass or pulmonary consolidation. PLEURAL SPACES: No effusion or pneumothorax. HEART: No cardiomegaly. No significant pericardial effusion. LYMPH NODES: No pathologic lymphadenopathy. BONES, CHEST WALL: Within normal limits for the patient's age. No fracture or destructive lesion OTHER FINDINGS: There is a small sliding hiatal hernia. Both adrenal glands are normal. There are multiple renal cysts. There is elevation of the right hemidiaphragm. IMPRESSION: 1. No CTA evidence for acute pulmonary embolism. 2. No evidence for lobar pneumonia, pleural effusion or pneumothorax. Pt remained stable during ED observation. Dr. Reed paged X 2, no response. Disposition - Clinical Impression Clinical Impression: Acute bronchitis - Patient ED Disposition Is Patient to be Admitted: No - Disposition Referrals: Cecilio Reed MD [Family Provider] - Disposition: Routine/Home Condition: GOOD Prescriptions: Albuterol 0.083% [Albuterol 0.083% Inhal Mariely (2.5 mg/3 ml) UD] 3 ml IH Q6H PRN # 30 neb PRN Reason: Shortness Of Breath Azithromycin [Zithromax] 250 mg PO DAILY #4 tab Nebulizer [Compact Compressor Nebulizer] 1 dev XX PRN PRN #1 dev PRN Reason: Shortness Of Breath Instructions: Acute Bronchitis Forms: Cannae (Burmese) Print Language: POLISH
--- NOTE | 2017-07-28 10:39 | RAD ---
HISTORY: COMPARISON: 02/25/2017. TECHNIQUE: Chest PA and lateral FINDINGS: LINES AND TUBES: None. LUNG AND PLEURA: The lungs are well inflated and clear. There is linear atelectasis/scarring in the lingula. HEART AND MEDIASTINUM: The heart is not enlarged. The hilar and mediastinal contours are within normal limits. SKELETAL STRUCTURES: The bony structures are within normal limits for the patient's age. VISUALIZED UPPER ABDOMEN: Normal. OTHER FINDINGS: None. IMPRESSION: No active pulmonary disease.
[2017-07-28] MEDS ORDERED: Albuterol-Ipratrop 3 mg / 0.5 (3 ml) UD ONE (10:55)
[2017-07-28 11:06] LABS: BASO % 0.6 % (0.0-2.0); EOS # 0.1 K/uL (0.0-0.7); EOS % 2.2 % (0.0-4.0); HEMOGLOBIN 13.6 g/dL (12.0-16.0); LYMPH # 1.3 K/uL (1.0-4.3); LYMPH % 19.7 % (20.0-40.0); MEAN CELL VOLUME 94.2 fl (81.0-99.0); MEAN CORPUSCULAR HEMOGLOBIN 32.4 pg (27.0-31.0); MEAN CORPUSCULAR HGB CONC 34.4 g/dL (33.0-37.0); MEAN PLATELET VOLUME 7.8 fl (7.2-11.7); MONO # 1.5 K/uL (0.0-0.8); NEUT # 3.4 K/uL (1.8-7.0); NEUT % 53.5 % (50.0-75.0); NRBC % 0.3 % (0.0-0.0); PLATELET COUNT 187 K/uL (130-400); RED CELL DISTRIBUTION WIDTH 13.4 % (11.5-14.5); WHITE BLOOD COUNT 6.4 K/uL (4.8-10.8)
[2017-07-28 11:17] LABS: ALB/GLOB RATIO 0.9 (1.0-2.1); ALBUMIN 3.7 g/dL (3.5-5.0); ALT/SGPT 21 U/L (9-52); AST/SGOT 25 U/L (14-36); BLOOD UREA NITROGEN 12 mg/dl (7-17); CALCIUM 8.9 mg/dL (8.4-10.2); GFR AFRICAN-AMERICAN > 60; GFR NON-AFRICAN AMERICAN > 60
[2017-07-28 11:25] LABS: PARTIAL THROMBOPLASTIN TIME 31.7 Seconds (25.6-37.1); PROTHROMBIN TIME 10.8 Seconds (9.8-13.1)
[2017-07-28 12:13] LABS: LYMPHOCYTE 15 % (20-50); MONOCYTE 20 % (0-10); NEUTROPHIL 60 % (42-75); PLATELET ESTIMATE NORMAL (NORMAL); REACTIVE LYMPHOCYTES 5 % (0-0); TOTAL CELLS COUNTED 100
[2017-07-28] MEDS ORDERED: Sodium Chloride 0.9% 50 ML IV ONE (14:59)
[2017-07-28] MEDS ORDERED: Iohexol 300 100 ML IJ ONE (14:59)
--- NOTE | 2017-07-28 15:41 | CT ---
PROCEDURE: CT Chest with contrast (Pulmonary Angiogram) HISTORY: Shortness of breath COMPARISON: None available. TECHNIQUE: Axial computed tomography images were obtained of the chest in the pulmonary arterial phase of enhancement. Coronal and sagittal reformatted images were created and reviewed. Intravenous contrast dose: 90 mL Visipaque 320 Radiation dose: Total exam DLP = 384.13 mGy-cm. This CT exam was performed using one or more of the following dose reduction techniques: Automated exposure control, adjustment of the mA and/or kV according to patient size, and/or use of iterative reconstruction technique. FINDINGS: PULMONARY ARTERIES: There are no filling defects in the pulmonary arteries to suggest acute pulmonary embolism. . AORTA: No acute findings. No thoracic aortic aneurysm. LUNGS: The lungs are clear. There is subsegmental atelectasis in the lower lobes. No nodule, mass or pulmonary consolidation. PLEURAL SPACES: No effusion or pneumothorax. HEART: No cardiomegaly. No significant pericardial effusion. LYMPH NODES: No pathologic lymphadenopathy. BONES, CHEST WALL: Within normal limits for the patient's age. No fracture or destructive lesion OTHER FINDINGS: There is a small sliding hiatal hernia. Both adrenal glands are normal. There are multiple renal cysts. There is elevation of the right hemidiaphragm. IMPRESSION: 1. No CTA evidence for acute pulmonary embolism. 2. No evidence for lobar pneumonia, pleural effusion or pneumothorax.
[2017-07-28 18:57] VITALS: BP 133/84; PULSE 76; TEMP 98.4; O2SAT 99
--- NOTE | 2017-07-29 17:32 | CARD ---
APPROVED REPORT EKG Measurement Heart [id number] <Conclusion> Normal sinus rhythm Left axis deviation Voltage criteria for left ventricular hypertrophy Nonspecific ST and T wave abnormality Abnormal ECG
== END 2017-07-28 18:45 | disposition home or self-care (01) ==
LOC: H.ER 08:52
DX: J20.9 Acute bronchitis, unspecified (principal); E11.9 Type 2 diabetes mellitus without complications; E78.00 Pure hypercholesterolemia, unspecified; F20.9 Schizophrenia, unspecified; F31.9 Bipolar disorder, unspecified; F41.9 Anxiety disorder, unspecified; I10 Essential (primary) hypertension; Z79.82 Long term (current) use of aspirin
CPT/HCPCS: 71046; 71275; 80053; 85025; 85378; 85610; 85730; 87040; 93005; 94640; 99283; Q9967

== ENCOUNTER 2017-09-08 11:41 | Inpatient (IN) | payer MEDICARE ==
[2017-09-08 12:18] VITALS: BMI 27.6
--- NOTE | 2017-09-08 12:57 | ED PDOC ---
HPI: General Adult Time Seen by Provider: 09/08/17 11:55 Chief Complaint (Nursing): Weakness/Neurological Deficit Chief Complaint (Provider): Generalized weakness History Per: Patient History/Exam Limitations: no limitations Additional Complaint(s): Pt reports generalized weakness X 2 months. Also c/o L flank pain X 2 months, no dysuria, no hematuria, no fever, no abd pain. Past Medical History Reviewed: Nursing Documentation, Vital Signs Vital Signs: Last Vital Signs Temp 98.3 F 09/09/17 08:17 Pulse 68 09/09/17 08:17 Resp 20 09/09/17 08:17 BP 116/63 09/09/17 08:17 Pulse Ox 98 09/09/17 15:14 - Medical History PMH: Anxiety, Bipolar Disorder, Diabetes, HTN, Hypercholesterolemia, Schizophrenia - Family History Family History: States: Unknown Family Hx - Living Arrangements Living Arrangements: Alone - Social History Current smoker - smoking cessation education provided: No Alcohol: None - Home Medications Home Medications: Ambulatory Orders Medication Instructions Recorded Albuterol 0.083% [Albuterol 0.083% 3 ml IH Q6H PRN #30 neb 07/28/17 Inhal Mariely (2.5 mg/3 ml) UD] Aspirin [Ecotrin] 81 mg PO DAILY 07/28/17 Divalproex [Depakote ER] 1,000 mg PO HS 07/28/17 Haloperidol Decanoate [Haldol 75 mg IM Q21D 07/28/17 Decanoate--long acting] Olanzapine [Zyprexa] 5 mg PO HS 07/28/17 Polyethylene Glycol 3350 [Gavilax] 17 gm PO DAILY 07/28/17 Valsartan/Hydrochlorothiazide 1 tab PO DAILY 07/28/17 [Diovan Hct 160-12.5 mg Tab] Meloxicam [Mobic] 7.5 mg PO DAILY 09/09/17 - Allergies Allergies/Adverse Reactions: Allergies Allergy/AdvReac Type Severity Reaction Status Date / Time No Known Allergies Allergy Verified 07/28/17 09:10 Review of Systems Constitutional: Positive for: Weakness (Generalized). Negative for: Fever, Chills Cardiovascular: Negative for: Chest Pain, Palpitations Respiratory: Negative for: Cough, Shortness of Breath Gastrointestinal: Negative for: Vomiting, Abdominal Pain, Diarrhea Genitourinary Female: Negative for: Dysuria, Hematuria Skin: Negative for: Rash, Lesions Neurological: Negative for: Dizziness Physical Exam - Reviewed Nursing Documentation Reviewed: Yes Vital Signs Reviewed: Yes - Physical Exam Appears: Positive for: Well, No Acute Distress Head Exam: Positive for: ATRAUMATIC, NORMAL INSPECTION Skin: Positive for: Normal Color, Warm, Dry Eye Exam: Positive for: Normal appearance, EOMI, PERRL Cardiovascular/Chest: Positive for: Regular Rate, Rhythm Respiratory: Positive for: Normal Breath Sounds Gastrointestinal/Abdominal: Positive for: Bowel Sounds, Soft. Negative for: Tenderness Back: Positive for: L CVA Tenderness Extremity: Positive for: Normal ROM - Laboratory Results Result Diagrams: 09/08/17 12:52 09/09/17 06:40 - ECG O2 Sat by Pulse Oximetry: 98 Medical Decision Making Medical Decision Makin yo female with generalized weakness and flank pain. - labs - EKG - CXR - orthostatics - IVF Accession No. : [id number] Patient Name / ID : ZUNZUEARL GREENE / [id number] Exam Date : 09/08/2017 14:10:46 ( Approved ) Study Comment : Sex / Age : F / 77Y Creator : Elmer Duggan MD Dictator : Elmer Duggan MD Dehydrogenation Operator : Forge Tender : Elmer Duggan MD Approver2 : Report Date : 09/08/2017 14:33:23 My Comment : Date of service: 09/08/2017 HISTORY: Weakness COMPARISON: Radiograph dated 07/28/2017. FINDINGS: LUNGS: No active pulmonary disease. PLEURA: No significant pleural effusion identified, no pneumothorax apparent. CARDIOVASCULAR: Atherosclerotic aortic calcifications. Cardiomediastinal silhouette stably prominent. OSSEOUS STRUCTURES: Unchanged. VISUALIZED UPPER ABDOMEN: Normal. OTHER FINDINGS: None. IMPRESSION: No active disease. Accession No. : [id number] Patient Name / ID : TATYANA GREENE / [id number] Exam Date : 09/08/2017 13:29:08 ( Approved ) Study Comment : Sex / Age : F / 77Y Creator : Elmer Duggan MD Dictator : Elmer Duggan MD Dehydrogenation Operator : Forge Tender : Elmer Duggan MD Approver2 : Report Date : 09/08/2017 14:09:33 My Comment : Date of service: 09/08/2017 PROCEDURE: CT Abdomen and Pelvis without intravenous contrast HISTORY: L flank pain COMPARISON: Correlations made to CT angiography of the pulmonary arteries dated 07/28/2017; CT scan of the abdomen pelvis dated 03/17/2013. TECHNIQUE: Contiguous images were obtained from the domes of the diaphragms to the upper thighs without the administration of intravenous contrast. Oral contrast was not administered. Radiation dose: Total exam DLP = 527.6 mGy-cm. This CT exam was performed using one or more of the following dose reduction techniques: Automated exposure control, adjustment of the mA and/or kV according to patient size, and/or use of iterative reconstruction technique. FINDINGS: LOWER THORAX: Unremarkable. LIVER: Unremarkable. No gross lesion or ductal dilatation. GALLBLADDER AND BILE DUCTS: Unremarkable. PANCREAS: Unremarkable. No gross lesion or ductal dilatation. SPLEEN: Unremarkable. ADRENALS: Unremarkable. No mass. KIDNEYS AND URETERS: Multiple bilateral renal cysts, the largest on the right is in the interpolar region measuring 4.4 x 4.3 cm and the largest on the left is also in the interpolar region measuring 8.8 x 6.3 cm. No hydronephrosis. No solid mass. VASCULATURE: Calcific atherosclerosis. No aortic aneurysm. BOWEL: Prior bowel surgery. No obstruction. No gross mural thickening. APPENDIX: Not identified. PERITONEUM: Unremarkable. No free fluid. No free air. LYMPH NODES: Unremarkable. No enlarged lymph nodes. BLADDER: Unremarkable. REPRODUCTIVE: Unremarkable. BONES: No acute fracture. OTHER FINDINGS: None. IMPRESSION: No obstructive uropathy or evidence of recently passed genitourinary calculus. Large bilateral renal cysts, largest on left measures up to 8.8 cm and is stable in size and appearance in comparison to CT angiography of the pulmonary arteries performed 07/28/2017. Additional stable findings as above. Disposition - Clinical Impression Clinical Impression: Acute weakness, Intractable back pain - Disposition Disposition Time: 16:35 Condition: STABLE - Pt Status Changed To: Hospital Disposition Of: Inpatient - Admit Certification Admit to Inpatient:: After my assessment, the patient will require hospitalization for at least two midnights. This is because of the severity of symptoms shown, intensity of services needed, and/or the medical risk in this patient being treated as an outpatient. - POA Present On Arrival: None
[2017-09-08 13:00] LABS: BASO % 0.7 % (0.0-2.0); EOS % 0.1 % (0.0-4.0); HEMOGLOBIN 12.3 g/dL (12.0-16.0); LYMPH # 1.2 K/uL (1.0-4.3); LYMPH % 21.1 % (20.0-40.0); MEAN CELL VOLUME 93.3 fl (81.0-99.0); MEAN CORPUSCULAR HGB CONC 34.4 g/dL (33.0-37.0); MEAN PLATELET VOLUME 7.9 fl (7.2-11.7); MONO # 1.4 K/uL (0.0-0.8); MONO % 26.2 % (0.0-10.0); NEUT # 2.8 K/uL (1.8-7.0); NEUT % 51.9 % (50.0-75.0); NRBC % 0.1 % (0.0-0.0); PLATELET COUNT 164 K/uL (130-400); RBC 3.85 Mil/uL (3.80-5.20); RED CELL DISTRIBUTION WIDTH 13.9 % (11.5-14.5); WHITE BLOOD COUNT 5.5 K/uL (4.8-10.8)
[2017-09-08 13:07] LABS: INR 1.2 (0.9-1.2); PARTIAL THROMBOPLASTIN TIME 30.6 Seconds (25.6-37.1); PROTHROMBIN TIME 12.8 Seconds (9.8-13.1)
[2017-09-08 13:17] LABS: ALB/GLOB RATIO 0.9 (1.0-2.1); ALBUMIN 3.4 g/dL (3.5-5.0); CALCIUM 8.7 mg/dL (8.4-10.2)
[2017-09-08 13:31] LABS: TROPONIN I 0.018 ng/mL (0.00-0.120)
[2017-09-08 13:32] LABS: BANDS 5 % (0-2); BASOPHIL 1 % (0-2); LYMPHOCYTE 22 % (20-50); MONOCYTE 18 % (0-10); NEUTROPHIL 54 % (42-75); PLATELET ESTIMATE NORMAL (NORMAL); TOTAL CELLS COUNTED 100
--- NOTE | 2017-09-08 14:11 | CT ---
Date of service: 09/08/2017 PROCEDURE: CT Abdomen and Pelvis without intravenous contrast HISTORY: L flank pain COMPARISON: Correlations made to CT angiography of the pulmonary arteries dated 07/28/2017; CT scan of the abdomen pelvis dated 03/17/2013. TECHNIQUE: Contiguous images were obtained from the domes of the diaphragms to the upper thighs without the administration of intravenous contrast. Oral contrast was not administered. Radiation dose: Total exam DLP = 527.6 mGy-cm. This CT exam was performed using one or more of the following dose reduction techniques: Automated exposure control, adjustment of the mA and/or kV according to patient size, and/or use of iterative reconstruction technique. FINDINGS: LOWER THORAX: Unremarkable. LIVER: Unremarkable. No gross lesion or ductal dilatation. GALLBLADDER AND BILE DUCTS: Unremarkable. PANCREAS: Unremarkable. No gross lesion or ductal dilatation. SPLEEN: Unremarkable. ADRENALS: Unremarkable. No mass. KIDNEYS AND URETERS: Multiple bilateral renal cysts, the largest on the right is in the interpolar region measuring 4.4 x 4.3 cm and the largest on the left is also in the interpolar region measuring 8.8 x 6.3 cm. No hydronephrosis. No solid mass. VASCULATURE: Calcific atherosclerosis. No aortic aneurysm. BOWEL: Prior bowel surgery. No obstruction. No gross mural thickening. APPENDIX: Not identified. PERITONEUM: Unremarkable. No free fluid. No free air. LYMPH NODES: Unremarkable. No enlarged lymph nodes. BLADDER: Unremarkable. REPRODUCTIVE: Unremarkable. BONES: No acute fracture. OTHER FINDINGS: None. IMPRESSION: No obstructive uropathy or evidence of recently passed genitourinary calculus. Large bilateral renal cysts, largest on left measures up to 8.8 cm and is stable in size and appearance in comparison to CT angiography of the pulmonary arteries performed 07/28/2017. Additional stable findings as above.
--- NOTE | 2017-09-08 14:34 | RAD ---
Date of service: 09/08/2017 HISTORY: Weakness COMPARISON: Radiograph dated 07/28/2017. FINDINGS: LUNGS: No active pulmonary disease. PLEURA: No significant pleural effusion identified, no pneumothorax apparent. CARDIOVASCULAR: Atherosclerotic aortic calcifications. Cardiomediastinal silhouette stably prominent. OSSEOUS STRUCTURES: Unchanged. VISUALIZED UPPER ABDOMEN: Normal. OTHER FINDINGS: None. IMPRESSION: No active disease.
[2017-09-08 17:02] LABS: SQUAMOUS EPITHIAL 7 /hpf (0-5); URINE BACTERIA RARE (<OCC); URINE BILIRUBIN NEGATIVE (NEGATIVE); URINE BLOOD NEGATIVE (NEGATIVE); URINE CLARITY CLOUDY (Clear); URINE COLOR AMBER (YELLOW); URINE GLUCOSE (UA) NEG (Normal); URINE LEUKOCYTE ESTERASE NEG Leu/uL (Negative); URINE PROTEIN NEGATIVE (NEGATIVE)
[2017-09-08] MEDS ORDERED: Albuterol 0.083% Inhal Sol (2.5 mg/3 mL) UD IH PRN (18:46)
--- NOTE | 2017-09-08 18:49 | CP.PCM.HP ---
<Lenka Higgins - Last Filed: 09/08/17 20:41> History of Present Illness - History of Present Illness History of Present Illness: 77 y/o F with PMHx of HTN, NIDDM, Schizophrenia, Bipolar disorder, Anxiety presents to ED complaining of weakness, lack of energy, poor appetite for 1-2 weeks. Patient is a poor historian, but is alert, awake, and oriented x 3. States she has been having very poor appetite, feeling weak, having nocturnal urinary incontinence( unclear why she has not been able to get up of bed for urination), but when she wakes up in AM, she notices her underwear is wet, denies any prior h/o urinary incontinence. Reports feeling Sad, crying frequently for the last 2 weeks too. She states she needs help at home, lives alone, and has "a person" from some place who comes almost every day and help her to take her medications. The closest family is her nephew Nicolas. Reports constipation, last BM was 3-4 days ago. Has a forehead pruritic rash, unclear since when. Reports a chronic Back pain, which sometimes radiates to her right leg, associated with intermittent numbness sensation. Denies any back pain at this time. PMD: Dr. Reed Present on Admission - Present on Admission Any Indicators Present on Admission: No History of DVT/PE: No History of Uncontrolled Diabetes: No Urinary Catheter: No Decubitus Ulcer Present: No Review of Systems - Review of Systems All systems: reviewed and no additional remarkable complaints except (as per HPI ) Past Patient History - Infectious Disease Hx of Infectious Diseases: None - Past Medical History & Family History Past Medical History?: Yes - Past Social History Smoking Status: Never Smoked - CARDIAC Hx Hypercholesterolemia: Yes Hx Hypertension: Yes - PULMONARY Hx Tuberculosis: No - NEUROLOGICAL Hx Seizures: No - HEENT Hx HEENT Problems: No - RENAL Hx Chronic Kidney Disease: No - ENDOCRINE/METABOLIC Hx Diabetes Mellitus Type 2: Yes - HEMATOLOGICAL/ONCOLOGICAL Hx Human Immunodeficiency Virus (HIV): No - INTEGUMENTARY Hx Dermatological Problems: No - MUSCULOSKELETAL/RHEUMATOLOGICAL Hx Falls: Yes - GASTROINTESTINAL Hx Gastrointestinal Disorders: Yes Hx Constipation: Yes - GENITOURINARY/GYNECOLOGICAL Hx Sexually Transmitted Disorders: No - PSYCHIATRIC Hx Anxiety: Yes Hx Bipolar Disorder: Yes Hx Schizophrenia: Yes Hx Substance Use: No - SURGICAL HISTORY Hx Appendectomy: Yes - ANESTHESIA Hx Anesthesia: Yes Hx Anesthesia Reactions: No Hx Malignant Hyperthermia: No Meds Allergies/Adverse Reactions: Allergies Allergy/AdvReac Type Severity Reaction Status Date / Time No Known Allergies Allergy Verified 07/28/17 09:10 Physical Exam - Constitutional Appears: Non-toxic, No Acute Distress Additional comments: Frequently crying during the interview - Head Exam Head Exam: ATRAUMATIC, NORMOCEPHALIC - Eye Exam Eye Exam: EOMI, Normal appearance, PERRL. absent: Conjunctival injection, Nystagmus, Scleral icterus - ENT Exam ENT Exam: Mucous Membranes Dry - Respiratory Exam Respiratory Exam: Clear to Auscultation Bilateral, NORMAL BREATHING PATTERN. absent: Decreased Breath Sounds, Rales, Rhonchi, Wheezes, Respiratory Distress, Stridor - Cardiovascular Exam Cardiovascular Exam: REGULAR RHYTHM, +S1, +S2 - GI/Abdominal Exam GI & Abdominal Exam: Normal Bowel Sounds (present), Soft. absent: Distended, Guarding, Rebound, Rigid - Extremities Exam Extremities exam: Positive for: normal inspection. Negative for: calf tenderness, pedal edema - Back Exam Back exam: NORMAL INSPECTION. absent: CVA tenderness (L), CVA tenderness (R) - Neurological Exam Neurological exam: Alert, Oriented x3 - Psychiatric Exam Additional comments: depressive mood, Sad - Skin Skin Exam: Dry, Intact, Normal Color Additional comments: papular erythematous rash over forehead Results - Vital Signs Recent Vital Signs: Last Vital Signs Temp 98.1 F 09/08/17 17:30 Pulse 74 09/08/17 17:30 Resp 20 09/08/17 17:30 BP 110/70 09/08/17 17:30 Pulse Ox 98 09/08/17 17:30 - Labs Result Diagrams: 09/08/17 12:52 09/08/17 12:52 Labs: Laboratory Results - last 24 hr 09/08/17 09/08/17 09/08/17 11:59 12:41 12:52 WBC 5.5 RBC 3.85 Hgb 12.3 Hct 35.9 MCV 93.3 MCH 32.0 H MCHC 34.4 RDW 13.9 Plt Count 164 MPV 7.9 Neut % (Auto) 51.9 Lymph % (Auto) 21.1 [place] % (Auto) 26.2 H Eos % (Auto) 0.1 Baso % (Auto) 0.7 Neut # (Auto) 2.8 Lymph # (Auto) 1.2 [place] # (Auto) 1.4 H Eos # (Auto) 0.0 Baso # (Auto) 0.0 Neutrophils % (Manual) 54 Band Neutrophils % 5 H Lymphocytes % (Manual) 22 Monocytes % (Manual) 18 H Basophils % (Manual) 1 Platelet Estimate Normal RBC Morphology Normal PT INR APTT Sodium Potassium Chloride Carbon Dioxide Anion Gap BUN Creatinine Est GFR ( Amer) Est GFR (Non-Af Amer) POC Glucose (mg/dL) 144 H 132 H Random Glucose Calcium Total Bilirubin AST ALT Alkaline Phosphatase Troponin I Total Protein Albumin Globulin Albumin/Globulin Ratio Urine Color Urine Clarity Urine pH Ur Specific [place] Urine Protein Urine Glucose (UA) Urine Ketones Urine Blood Urine Nitrate Urine Bilirubin Urine Urobilinogen Ur Leukocyte Esterase Urine RBC (Auto) Urine Microscopic WBC Ur Squamous Epith Cells Urine Bacteria Hyaline Casts 09/08/17 09/08/17 09/08/17 12:52 12:52 16:19 WBC RBC Hgb Hct MCV MCH MCHC RDW Plt Count MPV Neut % (Auto) Lymph % (Auto) [place] % (Auto) Eos % (Auto) Baso % (Auto) Neut # (Auto) Lymph # (Auto) [place] # (Auto) Eos # (Auto) Baso # (Auto) Neutrophils % (Manual) Band Neutrophils % Lymphocytes % (Manual) Monocytes % (Manual) Basophils % (Manual) Platelet Estimate RBC Morphology PT 12.8 INR 1.2 APTT 30.6 Sodium 137 Potassium 3.7 Chloride 98 Carbon Dioxide 27 Anion Gap 16 BUN 33 H Creatinine 1.3 H Est GFR ( Amer) 48 Est GFR (Non-Af Amer) 40 POC Glucose (mg/dL) Random Glucose 137 H Calcium 8.7 Total Bilirubin 0.8 AST 150 H D ALT 38 Alkaline Phosphatase 76 Troponin I 0.0180 Total Protein 7.0 Albumin 3.4 L Globulin 3.6 Albumin/Globulin Ratio 0.9 L Urine Color Radha Urine Clarity Cloudy Urine pH 5.0 Ur Specific [place] 1.020 Urine Protein Negative Urine Glucose (UA) Neg Urine Ketones Negative Urine Blood Negative Urine Nitrate Negative Urine Bilirubin Negative Urine Urobilinogen 4.0 H Ur Leukocyte Esterase Neg Urine RBC (Auto) < 1 Urine Microscopic WBC < 1 Ur Squamous Epith Cells 7 H Urine Bacteria Rare Hyaline Casts 3-5 H 09/08/17 17:15 WBC RBC Hgb Hct MCV MCH MCHC RDW Plt Count MPV Neut % (Auto) Lymph % (Auto) [place] % (Auto) Eos % (Auto) Baso % (Auto) Neut # (Auto) Lymph # (Auto) [place] # (Auto) Eos # (Auto) Baso # (Auto) Neutrophils % (Manual) Band Neutrophils % Lymphocytes % (Manual) Monocytes % (Manual) Basophils % (Manual) Platelet Estimate RBC Morphology PT INR APTT Sodium Potassium Chloride Carbon Dioxide Anion Gap BUN Creatinine Est GFR ( Amer) Est GFR (Non-Af Amer) POC Glucose (mg/dL) 110 Random Glucose Calcium Total Bilirubin AST ALT Alkaline Phosphatase Troponin I Total Protein Albumin Globulin Albumin/Globulin Ratio Urine Color Urine Clarity Urine pH Ur Specific [place] Urine Protein Urine Glucose (UA) Urine Ketones Urine Blood Urine Nitrate Urine Bilirubin Urine Urobilinogen Ur Leukocyte Esterase Urine RBC (Auto) Urine Microscopic WBC Ur Squamous Epith Cells Urine Bacteria Hyaline Casts Assessment & Plan - Assessment and Plan (Free Text) Assessment: 77 y/o F with PMHx of HTN, NIDDM, Schizophrenia, Bipolar disorder, Anxiety admitted with weakness of unknown etiology. Plan: Generalized Weakness -MedSurg -Afebrile, VS WNL -CBC: unremarkable -Coag panel: WNL -CMP: significant for mild prerenal azothemia, elevated AST: 150 -EKG: NSR, no evidence of ST-T wave changes -CXR: reported as no active disease -abd/pelvis CT reported as large bilateral renal cyst, stable in size in comparison to a CT done on june/2017 -IV fluids -associated with symptoms of depressive mood/sad feeling. Will consult Psychiatry. Recommendations are appreciated. Acute Renal injury -mild -most likely 2/2 poor PO intake -BUN/Cr:33/1.3, normal on prior test on 07/28/17 12/0.7 -IV fluids -f/u BMP in am Pruritic rash -seems to be allergic etiology -will monitor, and avoid PO antihistamine meds because possible interaction with antipsychotics meds HTN heart healthy diet -c/w home meds Diabetes Mellitus type 2 -consistent mod carb diet -on no home meds -check HgbA1C and lipid panel -last HgbA1C done on 03/09/16 was 5.8 H/O Schizophrenia -On Zyprexa 5 mg -On Haloperidol 75 mg IM Q21 ( unclear when received last dose, as per nephew she started haldol 2 months ago) -having involuntary shaking episodes of LE after she started Haloperidol. Could benefit from Benztropine. -Psychiatry consult. Recs are appreciated H/O Bipolar disorder -complaining of depressive mood -feeling sad, poor appetite, lack of energy -denies suicidal and/or homicidal ideation -c/w home Depakote -Psychiatry consult. Recs are appreciated ADLS -lives alone -needs assistance with ADLS -director social referral DVT prophylaxis -SCDs -Lovenox 40 mg SC - Date & Time Date: 09/08/17 Time: 17:50 <Cecilio Reed - Last Filed: 09/09/17 07:00> Results - Vital Signs Recent Vital Signs: Last Vital Signs Temp 98.5 F 09/09/17 00:00 Pulse 78 09/09/17 00:00 Resp 19 09/09/17 00:00 BP 135/65 09/09/17 00:00 Pulse Ox 97 09/09/17 00:00 - Labs Result Diagrams: 09/08/17 12:52 09/08/17 12:52 Labs: Laboratory Results - last 24 hr 09/08/17 09/08/17 09/08/17 11:59 12:41 12:52 WBC 5.5 RBC 3.85 Hgb 12.3 Hct 35.9 MCV 93.3 MCH 32.0 H MCHC 34.4 RDW 13.9 Plt Count 164 MPV 7.9 Neut % (Auto) 51.9 Lymph % (Auto) 21.1 [place] % (Auto) 26.2 H Eos % (Auto) 0.1 Baso % (Auto) 0.7 Neut # (Auto) 2.8 Lymph # (Auto) 1.2 [place] # (Auto) 1.4 H Eos # (Auto) 0.0 Baso # (Auto) 0.0 Neutrophils % (Manual) 54 Band Neutrophils % 5 H Lymphocytes % (Manual) 22 Monocytes % (Manual) 18 H Basophils % (Manual) 1 Platelet Estimate Normal RBC Morphology Normal PT INR APTT Sodium Potassium Chloride Carbon Dioxide Anion Gap BUN Creatinine Est GFR ( Amer) Est GFR (Non-Af Amer) POC Glucose (mg/dL) 144 H 132 H Random Glucose Hemoglobin A1c Calcium Total Bilirubin AST ALT Alkaline Phosphatase Troponin I Total Protein Albumin Globulin Albumin/Globulin Ratio Triglycerides Cholesterol LDL Cholesterol Direct HDL Cholesterol Urine Color Urine Clarity Urine pH Ur Specific [place] Urine Protein Urine Glucose (UA) Urine Ketones Urine Blood Urine Nitrate Urine Bilirubin Urine Urobilinogen Ur Leukocyte Esterase Urine RBC (Auto) Urine Microscopic WBC Ur Squamous Epith Cells Urine Bacteria Hyaline Casts 09/08/17 09/08/17 09/08/17 12:52 12:52 16:19 WBC RBC Hgb Hct MCV MCH MCHC RDW Plt Count MPV Neut % (Auto) Lymph % (Auto) [place] % (Auto) Eos % (Auto) Baso % (Auto) Neut # (Auto) Lymph # (Auto) [place] # (Auto) Eos # (Auto) Baso # (Auto) Neutrophils % (Manual) Band Neutrophils % Lymphocytes % (Manual) Monocytes % (Manual) Basophils % (Manual) Platelet Estimate RBC Morphology PT 12.8 INR 1.2 APTT 30.6 Sodium 137 Potassium 3.7 Chloride 98 Carbon Dioxide 27 Anion Gap 16 BUN 33 H Creatinine 1.3 H Est GFR ( Amer) 48 Est GFR (Non-Af Amer) 40 POC Glucose (mg/dL) Random Glucose 137 H Hemoglobin A1c Calcium 8.7 Total Bilirubin 0.8 AST 150 H D ALT 38 Alkaline Phosphatase 76 Troponin I 0.0180 Total Protein 7.0 Albumin 3.4 L Globulin 3.6 Albumin/Globulin Ratio 0.9 L Triglycerides Cholesterol LDL Cholesterol Direct HDL Cholesterol Urine Color Radha Urine Clarity Cloudy Urine pH 5.0 Ur Specific [place] 1.020 Urine Protein Negative Urine Glucose (UA) Neg Urine Ketones Negative Urine Blood Negative Urine Nitrate Negative Urine Bilirubin Negative Urine Urobilinogen 4.0 H Ur Leukocyte Esterase Neg Urine RBC (Auto) < 1 Urine Microscopic WBC < 1 Ur Squamous Epith Cells 7 H Urine Bacteria Rare Hyaline Casts 3-5 H 09/08/17 09/08/17 09/08/17 17:15 19:25 19:25 WBC RBC Hgb Hct MCV MCH MCHC RDW Plt Count MPV Neut % (Auto) Lymph % (Auto) [place] % (Auto) Eos % (Auto) Baso % (Auto) Neut # (Auto) Lymph # (Auto) [place] # (Auto) Eos # (Auto) Baso # (Auto) Neutrophils % (Manual) Band Neutrophils % Lymphocytes % (Manual) Monocytes % (Manual) Basophils % (Manual) Platelet Estimate RBC Morphology PT INR APTT Sodium Potassium Chloride Carbon Dioxide Anion Gap BUN Creatinine Est GFR ( Amer) Est GFR (Non-Af Amer) POC Glucose (mg/dL) 110 Random Glucose Hemoglobin A1c 6.6 H Calcium Total Bilirubin AST ALT Alkaline Phosphatase Troponin I Total Protein Albumin Globulin Albumin/Globulin Ratio Triglycerides 238 H Cholesterol 167 LDL Cholesterol Direct 97 HDL Cholesterol 18 L Urine Color Urine Clarity Urine pH Ur Specific [place] Urine Protein Urine Glucose (UA) Urine Ketones Urine Blood Urine Nitrate Urine Bilirubin Urine Urobilinogen Ur Leukocyte Esterase Urine RBC (Auto) Urine Microscopic WBC Ur Squamous Epith Cells Urine Bacteria Hyaline Casts Attending/Attestation - Attestation I have personally seen and examined this patient.: Yes I have fully participated in the care of the patient.: Yes I have reviewed all pertinent clinical information: Yes
[2017-09-08] MEDS ORDERED: HALOPERIDOL DECANOATE IM SCH (19:00)
[2017-09-08 19:52] LABS: HDL CHOLESTEROL 18 MG/DL (30-70)
[2017-09-08] MEDS ORDERED: Pneumococcal 23-Valent Vaccine IM ONE (19:59)
[2017-09-08 20:02] LABS: LDL CHOLESTEROL 97 mg/dL (0-129)
[2017-09-08] MEDS: Divalproex 500 mg ER (ONCE DAILY formulation) PO SCH (21:57)
[2017-09-08] MEDS: Enoxaparin 40 mg Syringe SC SCH (21:58)
[2017-09-08] MEDS: Sodium Chloride 0.9% 1,000 ML IV SCH (22:12)
[2017-09-09] MEDS: Sodium Chloride 0.9% 1,000 ML IV SCH ×2 (04:45→18:27)
[2017-09-09 07:28] LABS: BLOOD UREA NITROGEN 31 mg/dl (7-17); CALCIUM 8.2 mg/dL (8.4-10.2); GFR AFRICAN-AMERICAN > 60; GFR NON-AFRICAN AMERICAN 54
--- NOTE | 2017-09-09 07:59 | CP.PCM.CON ---
History of Present Illness - History of Present Illness History of Present Illness: Psychiatry consult note; patient known to chief underwriter from several hospitalizations CC: "I don't know why I'm here." HPI: 77 yo female w/ h/o schizoaffective disorder presents to ED complaining of weakness, lack of energy, poor appetite for 1-2 weeks. She is unable to state why she is in the hospital or the date (didn't know month or year). She knows she in [facility]. She reports feeling depressed, but denies others psychiatric symptoms. She denies acute AH/VH/paranoia/delusions/SI/HI. Past Psychiatry History: History of schizoaffective disorder, multiple psychiatric admissions. Medical history: H/o OR, CAD, chronic mild hyponatremia, DM, HTN Social History: Lives alone, from , no children; No drugs, alcohol; Pt's only family is nephew Nicolas Lindoz [phone]. From the Family History-No known family history of psychiatric illness Allergies: NKDA MSE: A + O x person, place, calm and cooperative. good eye contact, speech soft , mood "down". affect-constricted. NO AH/VH/SI/HI. No delusions. Chronic poor I/J Impression: 77 yo female, with history of Schizoaffective Disorder, seems to have AMS due to medical issues; does not meet criteria for acute psychiatric admission at this time but would benefit from social support when she is medically stable. Patient likely has dementia. -Continue current psychiatric medications; Check VPA level -Call for re-evaluation if clinical status changes Past Patient History - Infectious Disease Hx of Infectious Diseases: None - Past Medical History & Family History Past Medical History?: Yes - Past Social History Smoking Status: Never Smoked - CARDIAC Hx Hypercholesterolemia: Yes Hx Hypertension: Yes - PULMONARY Hx Tuberculosis: No - NEUROLOGICAL Hx Seizures: No - HEENT Hx HEENT Problems: No - RENAL Hx Chronic Kidney Disease: No - ENDOCRINE/METABOLIC Hx Diabetes Mellitus Type 2: Yes - HEMATOLOGICAL/ONCOLOGICAL Hx Human Immunodeficiency Virus (HIV): No - INTEGUMENTARY Hx Dermatological Problems: No - MUSCULOSKELETAL/RHEUMATOLOGICAL Hx Falls: Yes - GASTROINTESTINAL Hx Gastrointestinal Disorders: Yes Hx Constipation: Yes - GENITOURINARY/GYNECOLOGICAL Hx Sexually Transmitted Disorders: No - PSYCHIATRIC Hx Anxiety: Yes Hx Bipolar Disorder: Yes Hx Schizophrenia: Yes Hx Substance Use: No - SURGICAL HISTORY Hx Appendectomy: Yes - ANESTHESIA Hx Anesthesia: Yes Hx Anesthesia Reactions: No Hx Malignant Hyperthermia: No Meds Allergies/Adverse Reactions: Allergies Allergy/AdvReac Type Severity Reaction Status Date / Time No Known Allergies Allergy Verified 07/28/17 09:10 - Medications Medications: Current Medications Albuterol Sulfate (Albuterol 0.083% Inhal Mari[place] (2.5 Mg/3 Ml) Ud) 2.5 mg IH Q6H PRN PRN Reason: Shortness of Breath Aspirin (Ecotrin) 81 mg PO DAILY [facility] Divalproex Sodium (Depakote Er(Once Daily)) 1,000 mg PO HS [facility] Last Admin: 09/08/17 21:57 Dose: 1,000 mg Enoxaparin Sodium (Lovenox) 40 mg SC HS [facility] PRN Reason: Protocol Last Admin: 09/08/17 21:58 Dose: 40 mg Hydrochlorothiazide (Microzide) 12.5 mg PO DAILY [facility] Sodium Chloride (Sodium Chloride 0.9%) 1,000 mls @ 100 mls/hr IV .Q10H [facility] Stop: 09/09/17 18:43 Last Admin: 09/09/17 04:45 Dose: Not Given Ketorolac Tromethamine (Toradol) 15 mg IVP Q6 PRN PRN Reason: Pain, moderate (4-7) Mupirocin (Bactroban Ointment) 1 applic TOP BID [facility] Olanzapine (Zyprexa) 5 mg PO HS [facility] Last Admin: 09/08/17 21:58 Dose: 5 mg Polyethylene Glycol (Miralax) 17 gm PO DAILY [facility] Valsartan (Diovan) 160 mg PO DAILY [facility] Results - Vital Signs Recent Vital Signs: Last Vital Signs Temp 98.5 F 09/09/17 00:00 Pulse 78 09/09/17 00:00 Resp 19 09/09/17 00:00 BP 135/65 09/09/17 00:00 Pulse Ox 97 09/09/17 00:00 - Labs Result Diagrams: 09/08/17 12:52 09/09/17 06:40 Labs: Laboratory Results - last 24 hr 09/08/17 09/08/17 09/08/17 11:59 12:41 12:52 WBC 5.5 RBC 3.85 Hgb 12.3 Hct 35.9 MCV 93.3 MCH 32.0 H MCHC 34.4 RDW 13.9 Plt Count 164 MPV 7.9 Neut % (Auto) 51.9 Lymph % (Auto) 21.1 [place] % (Auto) 26.2 H Eos % (Auto) 0.1 Baso % (Auto) 0.7 Neut # (Auto) 2.8 Lymph # (Auto) 1.2 [place] # (Auto) 1.4 H Eos # (Auto) 0.0 Baso # (Auto) 0.0 Neutrophils % (Manual) 54 Band Neutrophils % 5 H Lymphocytes % (Manual) 22 Monocytes % (Manual) 18 H Basophils % (Manual) 1 Platelet Estimate Normal RBC Morphology Normal PT INR APTT Sodium Potassium Chloride Carbon Dioxide Anion Gap BUN Creatinine Est GFR ( Amer) Est GFR (Non-Af Amer) POC Glucose (mg/dL) 144 H 132 H Random Glucose Hemoglobin A1c Calcium Total Bilirubin AST ALT Alkaline Phosphatase Troponin I Total Protein Albumin Globulin Albumin/Globulin Ratio Triglycerides Cholesterol LDL Cholesterol Direct HDL Cholesterol Urine Color Urine Clarity Urine pH Ur Specific [place] Urine Protein Urine Glucose (UA) Urine Ketones Urine Blood Urine Nitrate Urine Bilirubin Urine Urobilinogen Ur Leukocyte Esterase Urine RBC (Auto) Urine Microscopic WBC Ur Squamous Epith Cells Urine Bacteria Hyaline Casts 09/08/17 09/08/17 09/08/17 12:52 12:52 16:19 WBC RBC Hgb Hct MCV MCH MCHC RDW Plt Count MPV Neut % (Auto) Lymph % (Auto) [place] % (Auto) Eos % (Auto) Baso % (Auto) Neut # (Auto) Lymph # (Auto) [place] # (Auto) Eos # (Auto) Baso # (Auto) Neutrophils % (Manual) Band Neutrophils % Lymphocytes % (Manual) Monocytes % (Manual) Basophils % (Manual) Platelet Estimate RBC Morphology PT 12.8 INR 1.2 APTT 30.6 Sodium 137 Potassium 3.7 Chloride 98 Carbon Dioxide 27 Anion Gap 16 BUN 33 H Creatinine 1.3 H Est GFR ( Amer) 48 Est GFR (Non-Af Amer) 40 POC Glucose (mg/dL) Random Glucose 137 H Hemoglobin A1c Calcium 8.7 Total Bilirubin 0.8 AST 150 H D ALT 38 Alkaline Phosphatase 76 Troponin I 0.0180 Total Protein 7.0 Albumin 3.4 L Globulin 3.6 Albumin/Globulin Ratio 0.9 L Triglycerides Cholesterol LDL Cholesterol Direct HDL Cholesterol Urine Color Radha Urine Clarity Cloudy Urine pH 5.0 Ur Specific [place] 1.020 Urine Protein Negative Urine Glucose (UA) Neg Urine Ketones Negative Urine Blood Negative Urine Nitrate Negative Urine Bilirubin Negative Urine Urobilinogen 4.0 H Ur Leukocyte Esterase Neg Urine RBC (Auto) < 1 Urine Microscopic WBC < 1 Ur Squamous Epith Cells 7 H Urine Bacteria Rare Hyaline Casts 3-5 H 09/08/17 09/08/17 09/08/17 17:15 19:25 19:25 WBC RBC Hgb Hct MCV MCH MCHC RDW Plt Count MPV Neut % (Auto) Lymph % (Auto) [place] % (Auto) Eos % (Auto) Baso % (Auto) Neut # (Auto) Lymph # (Auto) [place] # (Auto) Eos # (Auto) Baso # (Auto) Neutrophils % (Manual) Band Neutrophils % Lymphocytes % (Manual) Monocytes % (Manual) Basophils % (Manual) Platelet Estimate RBC Morphology PT INR APTT Sodium Potassium Chloride Carbon Dioxide Anion Gap BUN Creatinine Est GFR ( Amer) Est GFR (Non-Af Amer) POC Glucose (mg/dL) 110 Random Glucose Hemoglobin A1c 6.6 H Calcium Total Bilirubin AST ALT Alkaline Phosphatase Troponin I Total Protein Albumin Globulin Albumin/Globulin Ratio Triglycerides 238 H Cholesterol 167 LDL Cholesterol Direct 97 HDL Cholesterol 18 L Urine Color Urine Clarity Urine pH Ur Specific [place] Urine Protein Urine Glucose (UA) Urine Ketones Urine Blood Urine Nitrate Urine Bilirubin Urine Urobilinogen Ur Leukocyte Esterase Urine RBC (Auto) Urine Microscopic WBC Ur Squamous Epith Cells Urine Bacteria Hyaline Casts 09/09/17 06:40 WBC RBC Hgb Hct MCV MCH MCHC RDW Plt Count MPV Neut % (Auto) Lymph % (Auto) [place] % (Auto) Eos % (Auto) Baso % (Auto) Neut # (Auto) Lymph # (Auto) [place] # (Auto) Eos # (Auto) Baso # (Auto) Neutrophils % (Manual) Band Neutrophils % Lymphocytes % (Manual) Monocytes % (Manual) Basophils % (Manual) Platelet Estimate RBC Morphology PT INR APTT Sodium 137 Potassium 3.9 Chloride 99 Carbon Dioxide 31 H Anion Gap 11 BUN 31 H Creatinine 1.0 Est GFR ( Amer) > 60 Est GFR (Non-Af Amer) 54 POC Glucose (mg/dL) Random Glucose 118 H Hemoglobin A1c Calcium 8.2 L Total Bilirubin AST ALT Alkaline Phosphatase Troponin I Total Protein Albumin Globulin Albumin/Globulin Ratio Triglycerides Cholesterol LDL Cholesterol Direct HDL Cholesterol Urine Color Urine Clarity Urine pH Ur Specific [place] Urine Protein Urine Glucose (UA) Urine Ketones Urine Blood Urine Nitrate Urine Bilirubin Urine Urobilinogen Ur Leukocyte Esterase Urine RBC (Auto) Urine Microscopic WBC Ur Squamous Epith Cells Urine Bacteria Hyaline Casts
--- NOTE | 2017-09-09 08:54 | CP.PCM.PN ---
<Danyel Raphaelrichardmaulik - Last Filed: 09/09/17 11:22> Subjective - Date & Time of Evaluation Date of Evaluation: 09/09/17 Time of Evaluation: 07:25 - Subjective Subjective: Patient seen and examined at bedside, asleep in NAD, arose with examination, nurse in room during round, no reports of N/V/D, fever or FUENTES. Objective - Vital Signs/Intake and Output Vital Signs (last 24 hours): Temp Pulse Resp BP Pulse Ox 98.3 F 68 20 116/63 94 L 09/09/17 08:17 09/09/17 08:17 09/09/17 08:17 09/09/17 08:17 09/09/17 08:17 - Medications Medications: Current Medications Albuterol Sulfate (Albuterol 0.083% Inhal Mariely (2.5 Mg/3 Ml) Ud) 2.5 mg IH Q6H PRN PRN Reason: Shortness of Breath Aspirin (Ecotrin) 81 mg PO DAILY [facility] Divalproex Sodium (Depakote Er(Once Daily)) 1,000 mg PO HS [facility] Last Admin: 09/08/17 21:57 Dose: 1,000 mg Enoxaparin Sodium (Lovenox) 40 mg SC HS [facility] PRN Reason: Protocol Last Admin: 09/08/17 21:58 Dose: 40 mg Hydrochlorothiazide (Microzide) 12.5 mg PO DAILY [facility] Sodium Chloride (Sodium Chloride 0.9%) 1,000 mls @ 100 mls/hr IV .Q10H [facility] Stop: 09/09/17 18:43 Last Admin: 09/09/17 04:45 Dose: Not Given Ketorolac Tromethamine (Toradol) 15 mg IVP Q6 PRN PRN Reason: Pain, moderate (4-7) Mupirocin (Bactroban Ointment) 1 applic TOP BID [facility] Olanzapine (Zyprexa) 5 mg PO HS [facility] Last Admin: 09/08/17 21:58 Dose: 5 mg Polyethylene Glycol (Miralax) 17 gm PO DAILY [facility] Valsartan (Diovan) 160 mg PO DAILY [facility] - Labs Labs: 09/08/17 12:52 09/09/17 06:40 PT 12.8 Seconds (9.8-13.1) 09/08/17 12:52 INR 1.2 (0.9-1.2) 09/08/17 12:52 APTT 30.6 Seconds (25.6-37.1) 09/08/17 12:52 - Constitutional Appears: No Acute Distress - Head Exam Head Exam: ATRAUMATIC, NORMOCEPHALIC Additional comments: mild papulo-erythematous rash in forehead - Eye Exam Eye Exam: PERRL - ENT Exam ENT Exam: Mucous Membranes Moist - Respiratory Exam Respiratory Exam: Clear to Ausculation Bilateral. absent: Rales, Rhonchi, Wheezes - Cardiovascular Exam Cardiovascular Exam: REGULAR RHYTHM, +S1, +S2 - GI/Abdominal Exam GI & Abdominal Exam: Soft, Normal Bowel Sounds - Extremities Exam Extremities Exam: absent: Calf Tenderness, Pedal Edema - Neurological Exam Neurological Exam: Alert, Awake - Psychiatric Exam Psychiatric exam: Flat Affect - Skin Skin Exam: Normal Color, Warm Assessment and Plan - Assessment and Plan (Free Text) Assessment: 77 yo Female with PMHx of HTN, NIDDM, Schizophrenia, Bipolar disorder, Anxiety admitted with general weakness . Plan: Generalized Weakness -MedSurg -VS WNL -CBC: unremarkable -CMP: mild prerenal azotemia, elevated AST: 150 -EKG: NSR, no evidence of ST-T wave changes -CXR: reported as no active disease -abd/pelvis CT reported large bilateral renal cysts, stable in size in comparison to a CT done on june/2017 -Possibly associated with symptoms of Depression. Psychiatry consult is on board. Acute Renal injury -mild prerenal azothemia -most likely 2/2 poor PO intake -BUN/Cr:33/1.3 at time of admission today 31/1.0 -IV fluids -f/u BMP in am Pruritic Rash forehead/seborrheic dermatitis -will monitor -ketoconazole topical 2% to affected area of forehead bid -avoid PO antihistamine meds because possible interaction with antipsychotics meds HTN -heart healthy diet -c/w Diovan 160 po qd -Aspirin 81 po qd Diabetes Mellitus type 2 -consistent mod carb diet -stable -HgbA1C on admission 6.6 -no home meds H/O Schizophrenia -On Zyprexa 5 mg -On Haloperidol 75 mg IM Q21 (unclear when received last dose, as per nephew she started haldol 2 months ago) -Psychiatry consult on board, recomm appreciated H/O Bipolar disorder -complaining of depressive mood -feeling sad, poor appetite, weakness -denies suicidal and/or homicidal ideation -c/w home Depakote 1000 po qhs -will f/u VPA level in blood -Psychiatry consult on board, will f/u recomm ADLS -lives alone -needs assistance with ADLS -social service director eval DVT prophylaxis -SCDs -Lovenox 40 mg SC <Cecilio Miranda - Last Filed: 09/11/17 06:49> Objective - Vital Signs/Intake and Output Vital Signs (last 24 hours): Temp Pulse Resp BP Pulse Ox 99.5 F 86 19 93/57 L 96 09/11/17 00:00 09/11/17 00:00 09/11/17 00:00 09/11/17 00:00 09/11/17 00:00 - Medications Medications: Current Medications Acetaminophen (Tylenol 325mg Tab) 650 mg PO Q6 PRN PRN Reason: Fever >100.4 F Last Admin: 09/10/17 09:06 Dose: 650 mg Albuterol Sulfate (Albuterol 0.083% Inhal Mariely (2.5 Mg/3 Ml) Ud) 2.5 mg IH Q6H PRN PRN Reason: Shortness of Breath Aspirin (Ecotrin) 81 mg PO DAILY [facility] Last Admin: 09/10/17 09:08 Dose: 81 mg Divalproex Sodium (Depakote Er(Once Daily)) 1,000 mg PO HS [facility] Last Admin: 09/09/17 22:11 Dose: 1,000 mg Enoxaparin Sodium (Lovenox) 40 mg SC [facility] PRN Reason: Protocol Last Admin: 09/10/17 21:49 Dose: 40 mg Hydrochlorothiazide (Microzide) 12.5 mg PO DAILY [facility] Last Admin: 09/10/17 09:08 Dose: 12.5 mg Ketoconazole (Nizoral) 1 applic TOP BID [facility] Last Admin: 09/10/17 16:36 Dose: 1 u Ketorolac Tromethamine (Toradol) 15 mg IVP Q6 PRN PRN Reason: Pain, moderate (4-7) Olanzapine (Zyprexa) 5 mg PO [facility] Last Admin: 09/09/17 22:11 Dose: 5 mg Ondansetron HCl (Zofran Inj) 4 mg IVP Q6 PRN PRN Reason: Nausea/Vomiting Polyethylene Glycol (Miralax) 17 gm PO DAILY [facility] Last Admin: 09/10/17 09:08 Dose: 17 gm Saliva Substitute (First Magic Mouthwash) 5 ml PO TID [facility] Last Admin: 09/10/17 16:36 Dose: 5 ml Valsartan (Diovan) 160 mg PO DAILY [facility] Last Admin: 09/10/17 09:07 Dose: 160 mg - Labs Labs: 09/11/17 05:45 09/10/17 05:25 PT 12.8 Seconds (9.8-13.1) 09/08/17 12:52 INR 1.2 (0.9-1.2) 09/08/17 12:52 APTT 30.6 Seconds (25.6-37.1) 09/08/17 12:52 Attending/Attestation - Attestation I have personally seen and examined this patient.: Yes I have fully participated in the care of the patient.: Yes I have reviewed all pertinent clinical information, including history, physical exam and plan: Yes
[2017-09-09] MEDS ORDERED: Enoxaparin 40 mg Syringe SC SCH (09:00)
[2017-09-09] MEDS ORDERED: Patient's Own Med (Valsartan/Hydrochlorothiazide [Diovan Hct 160-12.5 Mg Tab] 1 TAB) PO SCH (09:00)
[2017-09-09] MEDS: POLYETHYLENE GLYCOL 3350 17 GM/Dose PACKET PO SCH (10:01)
--- NOTE | 2017-09-09 11:14 | CARD ---
APPROVED REPORT Date of service: 09/08/2017 EKG Measurement Heart [id number] ME [id number] <Conclusion> Normal sinus rhythm Left axis deviation Voltage criteria for left ventricular hypertrophy Abnormal ECG
[2017-09-09] MEDS: Divalproex 500 mg ER (ONCE DAILY formulation) PO SCH (22:11)
[2017-09-09] MEDS: Enoxaparin 40 mg Syringe SC SCH (22:11)
[2017-09-10 06:03] LABS: HEMOGLOBIN 11.3 g/dL (12.0-16.0); MEAN CELL VOLUME 92.7 fl (81.0-99.0); MEAN CORPUSCULAR HEMOGLOBIN 32.1 pg (27.0-31.0); MEAN CORPUSCULAR HGB CONC 34.6 g/dL (33.0-37.0); RBC 3.53 Mil/uL (3.80-5.20); RED CELL DISTRIBUTION WIDTH 13.8 % (11.5-14.5); WHITE BLOOD COUNT 9.8 K/uL (4.8-10.8)
[2017-09-10 06:23] LABS: BLOOD UREA NITROGEN 17 mg/dl (7-17); CALCIUM 8.4 mg/dL (8.4-10.2); GFR AFRICAN-AMERICAN > 60; GFR NON-AFRICAN AMERICAN 54
[2017-09-10] MEDS: Mag&Al/Simet/Diphen/Lido 237 ML KIT PO SCH ×3 (09:08→16:36)
[2017-09-10] MEDS: POLYETHYLENE GLYCOL 3350 17 GM/Dose PACKET PO SCH (09:08)
--- NOTE | 2017-09-10 12:44 | RAD ---
Date of service: 09/10/2017 HISTORY: fever COMPARISON: 09/08/2017. FINDINGS: LUNGS: No active pulmonary disease. PLEURA: No significant pleural effusion identified, no pneumothorax apparent. CARDIOVASCULAR: No radiographic findings to suggest acute or significant cardiovascular disease. OSSEOUS STRUCTURES: No significant abnormalities. VISUALIZED UPPER ABDOMEN: Normal. OTHER FINDINGS: None. IMPRESSION: No active disease. No significant interval change compared to the prior examination(s).
[2017-09-10 13:00] LABS: SQUAMOUS EPITHIAL < 1 /hpf (0-5); URINE BACTERIA RARE (<OCC); URINE BILIRUBIN NEGATIVE (NEGATIVE); URINE BLOOD NEGATIVE (NEGATIVE); URINE CLARITY SLIGHTY-CLOUDY (Clear); URINE COLOR YELLOW (YELLOW); URINE GLUCOSE (UA) NEG (Normal); URINE HYALINE CAST 0-2 /hpf (0-2); URINE LEUKOCYTE ESTERASE NEG Leu/uL (Negative); URINE PROTEIN NEGATIVE (NEGATIVE)
--- NOTE | 2017-09-10 14:41 | CP.PCM.PN ---
<Giovanna Raphael - Last Filed: 09/10/17 15:46> Subjective - Date & Time of Evaluation Date of Evaluation: 09/10/17 Time of Evaluation: 07:25 - Subjective Subjective: Patient seen and examined at bedside, asleep in NAD, arose with examination, patient confused to time, denies N/V/D, FUENTES. Objective - Vital Signs/Intake and Output Vital Signs (last 24 hours): Temp Pulse Resp BP Pulse Ox 98.4 F 89 18 147/80 93 L 09/10/17 12:37 09/10/17 12:37 09/10/17 12:37 09/10/17 12:37 09/10/17 08:56 - Medications Medications: Current Medications Acetaminophen (Tylenol 325mg Tab) 650 mg PO Q6 PRN PRN Reason: Fever >100.4 F Last Admin: 09/10/17 09:06 Dose: 650 mg Albuterol Sulfate (Albuterol 0.083% Inhal Mariely (2.5 Mg/3 Ml) Ud) 2.5 mg IH Q6H PRN PRN Reason: Shortness of Breath Aspirin (Ecotrin) 81 mg PO DAILY [facility] Last Admin: 09/10/17 09:08 Dose: 81 mg Divalproex Sodium (Depakote Er(Once Daily)) 1,000 mg PO HS [facility] Last Admin: 09/09/17 22:11 Dose: 1,000 mg Enoxaparin Sodium (Lovenox) 40 mg SC HS [facility] PRN Reason: Protocol Last Admin: 09/09/17 22:11 Dose: 40 mg Hydrochlorothiazide (Microzide) 12.5 mg PO DAILY [facility] Last Admin: 09/10/17 09:08 Dose: 12.5 mg Ketoconazole (Nizoral) 1 applic TOP BID [facility] Last Admin: 09/10/17 09:07 Dose: 1 u Ketorolac Tromethamine (Toradol) 15 mg IVP Q6 PRN PRN Reason: Pain, moderate (4-7) Olanzapine (Zyprexa) 5 mg PO HS [facility] Last Admin: 09/09/17 22:11 Dose: 5 mg Ondansetron HCl (Zofran Inj) 4 mg IVP Q6 PRN PRN Reason: Nausea/Vomiting Polyethylene Glycol (Miralax) 17 gm PO DAILY [facility] Last Admin: 09/10/17 09:08 Dose: 17 gm Saliva Substitute (First Magic Mouthwash) 5 ml PO TID [facility] Last Admin: 09/10/17 13:29 Dose: 5 ml Valsartan (Diovan) 160 mg PO DAILY [facility] Last Admin: 09/10/17 09:07 Dose: 160 mg - Labs Labs: 09/10/17 05:25 09/10/17 05:25 PT 12.8 Seconds (9.8-13.1) 09/08/17 12:52 INR 1.2 (0.9-1.2) 09/08/17 12:52 APTT 30.6 Seconds (25.6-37.1) 09/08/17 12:52 - Constitutional Appears: No Acute Distress, Confused - Head Exam Head Exam: ATRAUMATIC, NORMOCEPHALIC - Eye Exam Eye Exam: PERRL - ENT Exam ENT Exam: Mucous Membranes Moist - Respiratory Exam Respiratory Exam: Clear to Ausculation Bilateral. absent: Wheezes - Cardiovascular Exam Cardiovascular Exam: REGULAR RHYTHM, +S1, +S2 - GI/Abdominal Exam GI & Abdominal Exam: Soft, Normal Bowel Sounds - Extremities Exam Extremities Exam: absent: Pedal Edema - Neurological Exam Additional comments: somnolent but arousable during examination, disoriented to time - Psychiatric Exam Psychiatric exam: Flat Affect - Skin Skin Exam: Normal Color, Warm Assessment and Plan - Assessment and Plan (Free Text) Assessment: 77 yo Female with PMHx of HTN, NIDDM, Schizophrenia, Bipolar disorder, Anxiety admitted with general weakness Plan: Generalized Weakness -MedSurg monitoring -VPA level 107.6, will hold DEpakote -VS T:febrile today, awaiting w/u lab exams -CXR 09/10/17: unremarkable, no active disease, no interval change compared to prior exam -CBC: wbc 9.8, BMP unremarkable, will f/u CMP in AM -EKG: NormalSR, no evidence of ST-T wave changes -abd/pelvis CT reported large bilateral renal cysts, stable in size in comparison to a CT done on june/2017 -Possibly associated with symptoms of Depression. -Psychiatry consult is on board. Acute Renal injury -Resolved mild prerenal azothemia -BUN/Cr:17/1.0 -f/u CMP in am Pruritic Rash forehead/seborrheic dermatitis -ketoconazole topical 2% to affected area of forehead bid -avoid PO antihistamine in elderly, and risk of increase confusion HTN -heart healthy diet -c/w Diovan 160 po qd -Aspirin 81 po qd Diabetes Mellitus type 2 -stable -consistent mod carb diet -HgbA1C on admission 6.6 -no home meds H/O Schizophrenia -On Zyprexa 5 mg -On Haloperidol 75 mg IM Q21 (unclear when received last dose, as per nephew she started haldol 2 months ago) -Psychiatry consult on board, recomm appreciated H/O Bipolar disorder -feeling sad, continue home meds -poor appetite, weakness -denies suicidal and/or homicidal ideation -DEpakote held 2/2 VPA level elevated, patient is smonolent -will f/u VPA level in blood -Psychiatry consult on board, will f/u recomm ADLS -lives alone -needs assistance with ADLS -licensed clinical social worker jose DVT prophylaxis -SCDs -Lovenox 40 mg SC <Man Bliss - Last Filed: 09/14/17 06:51> Objective - Vital Signs/Intake and Output Vital Signs (last 24 hours): Temp Pulse Resp BP Pulse Ox 98.3 F 60 20 147/84 99 09/14/17 00:37 09/14/17 00:37 09/14/17 00:37 09/14/17 00:37 09/14/17 00:37 Intake and Output: 09/13/17 09/14/17 18:59 06:59 Intake Total 950 Balance 950 - Medications Medications: Current Medications Acetaminophen (Tylenol 325mg Tab) 650 mg PO Q6 PRN PRN Reason: Fever >100.4 F Last Admin: 09/10/17 09:06 Dose: 650 mg Albuterol Sulfate (Albuterol 0.083% Inhal Mariely (2.5 Mg/3 Ml) Ud) 2.5 mg IH Q6H PRN PRN Reason: Shortness of Breath Last Admin: 09/11/17 23:59 Dose: 2.5 mg Aspirin (Ecotrin) 81 mg PO DAILY [facility] Last Admin: 09/13/17 10:12 Dose: 81 mg Divalproex Sodium (Depakote Er(Once Daily)) 1,000 mg PO HS [facility] Last Admin: 09/13/17 21:23 Dose: 1,000 mg Divalproex Sodium (Depakote Er(Once Daily)) 500 mg PO HS [facility] Last Admin: 09/13/17 21:23 Dose: 500 mg Enoxaparin Sodium (Lovenox) 40 mg SC HS [facility] PRN Reason: Protocol Last Admin: 09/13/17 21:24 Dose: 40 mg Hydrochlorothiazide (Microzide) 12.5 mg PO DAILY [facility] Last Admin: 09/13/17 10:13 Dose: 12.5 mg Clindamycin Phosphate (Cleocin In Normal Saline) 600 mg in 50 mls @ 46.296 mls/ hr IVPB Q12 [facility] PRN Reason: Protocol Last Admin: 09/13/17 21:22 Dose: 46.296 mls/hr Ketoconazole (Nizoral) 1 applic TOP BID [facility] Last Admin: 09/13/17 10:14 Dose: 1 u Ketorolac Tromethamine (Toradol) 15 mg IVP Q6 PRN PRN Reason: Pain, moderate (4-7) Olanzapine (Zyprexa) 5 mg PO HS [facility] Last Admin: 09/13/17 21:24 Dose: 5 mg Ondansetron HCl (Zofran Inj) 4 mg IVP Q6 PRN PRN Reason: Nausea/Vomiting Polyethylene Glycol (Miralax) 17 gm PO DAILY [facility] Last Admin: 09/13/17 10:13 Dose: 17 gm Saliva Substitute (First Magic Mouthwash) 5 ml PO TID [facility] Last Admin: 09/13/17 16:52 Dose: 5 ml Valsartan (Diovan) 160 mg PO DAILY [facility] Last Admin: 09/13/17 10:12 Dose: 160 mg - Labs Labs: 09/13/17 06:30 09/13/17 06:30 PT 12.8 Seconds (9.8-13.1) 09/08/17 12:52 INR 1.2 (0.9-1.2) 09/08/17 12:52 APTT 30.6 Seconds (25.6-37.1) 09/08/17 12:52 Attending/Attestation - Attestation I have personally seen and examined this patient.: Yes I have fully participated in the care of the patient.: Yes I have reviewed all pertinent clinical information, including history, physical exam and plan: Yes
[2017-09-10] MEDS: Enoxaparin 40 mg Syringe SC SCH (21:49)
[2017-09-11 06:26] LABS: HEMOGLOBIN 10.4 g/dL (12.0-16.0); MEAN CELL VOLUME 92.7 fl (81.0-99.0); MEAN CORPUSCULAR HEMOGLOBIN 30.9 pg (27.0-31.0); MEAN CORPUSCULAR HGB CONC 33.3 g/dL (33.0-37.0); RBC 3.38 Mil/uL (3.80-5.20); RED CELL DISTRIBUTION WIDTH 13.9 % (11.5-14.5); WHITE BLOOD COUNT 21.6 K/uL (4.8-10.8)
[2017-09-11 06:53] LABS: ALB/GLOB RATIO 0.8 (1.0-2.1); ALBUMIN 2.8 g/dL (3.5-5.0)
[2017-09-11] MEDS: Sodium Chloride 0.9% 1,000 ML IV SCH ×4 (07:59→21:19)
[2017-09-11] MEDS: Mag&Al/Simet/Diphen/Lido 237 ML KIT PO SCH ×3 (08:38→16:29)
[2017-09-11] MEDS: POLYETHYLENE GLYCOL 3350 17 GM/Dose PACKET PO SCH (08:39)
--- NOTE | 2017-09-11 11:23 | CP.PCM.PN ---
<Danyel Raphaelhowie - Last Filed: 09/11/17 15:25> Subjective - Date & Time of Evaluation Date of Evaluation: 09/11/17 Time of Evaluation: 07:35 - Subjective Subjective: Patient seen and examined at bedside, NAD, patient is alert, pleasant and having a conversation, but is not oriented to time, denies FUENTES, N/V/D, abdominal pain, dysuria, or chills. Patient is afebrile and alert today. Objective - Vital Signs/Intake and Output Vital Signs (last 24 hours): Temp Pulse Resp BP Pulse Ox 100.0 F H 88 20 105/64 95 09/11/17 08:10 09/11/17 08:10 09/11/17 08:10 09/11/17 08:10 09/11/17 08:10 - Medications Medications: Current Medications Acetaminophen (Tylenol 325mg Tab) 650 mg PO Q6 PRN PRN Reason: Fever >100.4 F Last Admin: 09/10/17 09:06 Dose: 650 mg Albuterol Sulfate (Albuterol 0.083% Inhal Mariely (2.5 Mg/3 Ml) Ud) 2.5 mg IH Q6H PRN PRN Reason: Shortness of Breath Aspirin (Ecotrin) 81 mg PO DAILY [facility] Last Admin: 09/11/17 08:39 Dose: 81 mg Divalproex Sodium (Depakote Er(Once Daily)) 1,000 mg PO HS [facility] Last Admin: 09/09/17 22:11 Dose: 1,000 mg Divalproex Sodium (Depakote Er(Once Daily)) 500 mg PO [facility] Enoxaparin Sodium (Lovenox) 40 mg SC [facility] PRN Reason: Protocol Last Admin: 09/10/17 21:49 Dose: 40 mg Hydrochlorothiazide (Microzide) 12.5 mg PO DAILY [facility] Last Admin: 09/11/17 08:39 Dose: 12.5 mg Sodium Chloride (Sodium Chloride 0.9%) 1,000 mls @ 150 mls/hr IV .Q6H40M [facility] Stop: 09/12/17 07:05 Last Admin: 09/11/17 07:59 Dose: 150 mls/hr Ketoconazole (Nizoral) 1 applic TOP BID [facility] Last Admin: 07/13/18 08:40 Dose: 1 u Ketorolac Tromethamine (Toradol) 15 mg IVP Q6 PRN PRN Reason: Pain, moderate (4-7) Olanzapine (Zyprexa) 5 mg PO HS [facility] Last Admin: 09/09/17 22:11 Dose: 5 mg Ondansetron HCl (Zofran Inj) 4 mg IVP Q6 PRN PRN Reason: Nausea/Vomiting Polyethylene Glycol (Miralax) 17 gm PO DAILY [facility] Last Admin: 09/11/17 08:39 Dose: 17 gm Saliva Substitute (First Magic Mouthwash) 5 ml PO TID [facility] Last Admin: 09/11/17 08:38 Dose: 5 ml Valsartan (Diovan) 160 mg PO DAILY [facility] Last Admin: 09/11/17 08:39 Dose: 160 mg - Labs Labs: 09/11/17 05:45 09/11/17 05:45 PT 12.8 Seconds (9.8-13.1) 09/08/17 12:52 INR 1.2 (0.9-1.2) 09/08/17 12:52 APTT 30.6 Seconds (25.6-37.1) 09/08/17 12:52 - Constitutional Appears: No Acute Distress - Head Exam Head Exam: ATRAUMATIC, NORMOCEPHALIC - Eye Exam Eye Exam: EOMI, PERRL - ENT Exam ENT Exam: Mucous Membranes Moist - Respiratory Exam Respiratory Exam: Clear to Ausculation Bilateral - Cardiovascular Exam Cardiovascular Exam: REGULAR RHYTHM, +S1, +S2 - GI/Abdominal Exam GI & Abdominal Exam: Soft, Normal Bowel Sounds - Extremities Exam Extremities Exam: absent: Pedal Edema - Neurological Exam Neurological Exam: Alert, Awake - Psychiatric Exam Psychiatric exam: Normal Affect, Normal Mood - Skin Skin Exam: Normal Color, Warm Assessment and Plan - Assessment and Plan (Free Text) Assessment: 77 yo Female with PMHx of HTN, NIDDM, Schizophrenia, Bipolar disorder, Anxiety admitted with general weakness. Plan: Generalized Weakness -MedSurg monitoring -DEpakote 500 po qhs, decreased from 1000 due to elevated VPA level and somnolence -afebrile today -CXR 09/10/17: unremarkable, no active disease, no interval change compared to prior exam -EKG: NormalSR, no evidence of ST-T wave changes -abd/pelvis CT reported large bilateral renal cysts, stable in size in comparison to a CT done on june/2017 -Possibly associated with symptoms of Depression. -Psychiatry consult is on board. Leukocytosis -WBC 21.6 -patient afebrile today, had fever of 102.9 in AM yesterday -will repeat today CBC with diff -Will consult ID if needed -CXR done unremarkable -UA unremarkable -BC done pending results Acute Renal injury -mild prerenal azothemia -BUN/Cr:26/1.6 -gentle hydration -f/u CMP in am Pruritic Rash forehead/seborrheic dermatitis -improving -ketoconazole topical 2% to affected area of forehead bid -avoid PO antihistamine in elderly, and risk of increase confusion HTN -heart healthy diet -c/w Diovan 160 po qd -Aspirin 81 po qd Diabetes Mellitus type 2 -stable -consistent mod carb diet -HgbA1C on admission 6.6 -no home meds H/O Schizophrenia -On Zyprexa 5 mg qd -On Haloperidol 75 mg IM Q21 last dose 08/28 -Psychiatry consult on board, recomm appreciated H/O Bipolar disorder -poor appetite, weakness -denies suicidal and/or homicidal ideation -DEpakote 500 po qhs -Psychiatry consult on board, will f/u recomm ADLS -lives alone -needs assistance with ADLS -case management social worker jose DVT prophylaxis -SCDs -Lovenox 40 mg SC <Cecilio Miranda A - Last Filed: 09/14/17 06:56> Objective - Vital Signs/Intake and Output Vital Signs (last 24 hours): Temp Pulse Resp BP Pulse Ox 98.3 F 60 20 147/84 99 09/14/17 00:37 09/14/17 00:37 09/14/17 00:37 09/14/17 00:37 09/14/17 00:37 Intake and Output: 09/13/17 09/14/17 18:59 06:59 Intake Total 950 Balance 950 - Medications Medications: Current Medications Acetaminophen (Tylenol 325mg Tab) 650 mg PO Q6 PRN PRN Reason: Fever >100.4 F Last Admin: 09/10/17 09:06 Dose: 650 mg Albuterol Sulfate (Albuterol 0.083% Inhal Mariely (2.5 Mg/3 Ml) Ud) 2.5 mg IH Q6H PRN PRN Reason: Shortness of Breath Last Admin: 09/11/17 23:59 Dose: 2.5 mg Aspirin (Ecotrin) 81 mg PO DAILY [facility] Last Admin: 09/13/17 10:12 Dose: 81 mg Divalproex Sodium (Depakote Er(Once Daily)) 1,000 mg PO HS [facility] Last Admin: 09/13/17 21:23 Dose: 1,000 mg Divalproex Sodium (Depakote Er(Once Daily)) 500 mg PO HS [facility] Last Admin: 09/13/17 21:23 Dose: 500 mg Enoxaparin Sodium (Lovenox) 40 mg SC HS [facility] PRN Reason: Protocol Last Admin: 09/13/17 21:24 Dose: 40 mg Hydrochlorothiazide (Microzide) 12.5 mg PO DAILY [facility] Last Admin: 09/13/17 10:13 Dose: 12.5 mg Clindamycin Phosphate (Cleocin In Normal Saline) 600 mg in 50 mls @ 46.296 mls/ hr IVPB Q12 [facility] PRN Reason: Protocol Last Admin: 09/13/17 21:22 Dose: 46.296 mls/hr Ketoconazole (Nizoral) 1 applic TOP BID [facility] Last Admin: 09/13/17 10:14 Dose: 1 u Ketorolac Tromethamine (Toradol) 15 mg IVP Q6 PRN PRN Reason: Pain, moderate (4-7) Olanzapine (Zyprexa) 5 mg PO HS [facility] Last Admin: 09/13/17 21:24 Dose: 5 mg Ondansetron HCl (Zofran Inj) 4 mg IVP Q6 PRN PRN Reason: Nausea/Vomiting Polyethylene Glycol (Miralax) 17 gm PO DAILY [facility] Last Admin: 09/13/17 10:13 Dose: 17 gm Saliva Substitute (First Magic Mouthwash) 5 ml PO TID [facility] Last Admin: 09/13/17 16:52 Dose: 5 ml Valsartan (Diovan) 160 mg PO DAILY [facility] Last Admin: 09/13/17 10:12 Dose: 160 mg - Labs Labs: 09/13/17 06:30 09/13/17 06:30 PT 12.8 Seconds (9.8-13.1) 09/08/17 12:52 INR 1.2 (0.9-1.2) 09/08/17 12:52 APTT 30.6 Seconds (25.6-37.1) 09/08/17 12:52 Attending/Attestation - Attestation I have personally seen and examined this patient.: Yes I have fully participated in the care of the patient.: Yes I have reviewed all pertinent clinical information, including history, physical exam and plan: Yes
--- NOTE | 2017-09-11 11:58 | CP.PCM.CON ---
History of Present Illness - History of Present Illness History of Present Illness: Pt is a 77 year old female admitted to [facility] and referred to the clinical writer for evaluation. See medical record for complete medical history and medications. Pt only spoke of "not feeling well." She was unable to articulate her medical history apart from depression. Social History: pt reported livng alone in [place], she reported beng and having no children. pt reported having one sister in [place] and few supports. She mentioned having a homemaker and the desire for a homemaker in the future. Psych: pt reported going to the [facility] of [place] in the past and having multiple psych hospitalizations. She denied a history of alc.sub abuse. Pt spoke of feeling depressed prior to admission. She was encouraged to resume treatment at the [facility] though explaied that Dr. Reed is her doctor. MSE: pt was not oriented to year (1986), she was able to state the month but not day/date. Pt negative for pscyhosis, no si no hi ideation. Some supicoiusness was evident. Dx: Depression Recurrent r/o suspicousness/paranoia Plan: Psychiatric services [facility] with mental health involvement cognitive monitoring Thank you for this referral, Dr. Rutledge Past Patient History - Infectious Disease Hx of Infectious Diseases: None - Past Medical History & Family History Past Medical History?: Yes - Past Social History Alcohol: None - CARDIAC Hx Hypercholesterolemia: Yes Hx Hypertension: Yes - PULMONARY Hx Tuberculosis: No - NEUROLOGICAL Hx Seizures: No - HEENT Hx HEENT Problems: No - RENAL Hx Chronic Kidney Disease: No - ENDOCRINE/METABOLIC Hx Diabetes Mellitus Type 2: Yes - HEMATOLOGICAL/ONCOLOGICAL Hx Human Immunodeficiency Virus (HIV): No - INTEGUMENTARY Hx Dermatological Problems: No - MUSCULOSKELETAL/RHEUMATOLOGICAL Hx Falls: Yes - GASTROINTESTINAL Hx Gastrointestinal Disorders: Yes Hx Constipation: Yes - GENITOURINARY/GYNECOLOGICAL Hx Sexually Transmitted Disorders: No - PSYCHIATRIC Hx Anxiety: Yes Hx Bipolar Disorder: Yes Hx Schizophrenia: Yes - SURGICAL HISTORY Hx Appendectomy: Yes - ANESTHESIA Hx Anesthesia: Yes Hx Anesthesia Reactions: No Hx Malignant Hyperthermia: No Meds Allergies/Adverse Reactions: Allergies Allergy/AdvReac Type Severity Reaction Status Date / Time No Known Allergies Allergy Verified 07/28/17 09:10 - Medications Medications: Current Medications Acetaminophen (Tylenol 325mg Tab) 650 mg PO Q6 PRN PRN Reason: Fever >100.4 F Last Admin: 09/10/17 09:06 Dose: 650 mg Albuterol Sulfate (Albuterol 0.083% Inhal Mariely (2.5 Mg/3 Ml) Ud) 2.5 mg IH Q6H PRN PRN Reason: Shortness of Breath Aspirin (Ecotrin) 81 mg PO DAILY [facility] Last Admin: 09/11/17 08:39 Dose: 81 mg Divalproex Sodium (Depakote Er(Once Daily)) 1,000 mg PO HS [facility] Last Admin: 09/09/17 22:11 Dose: 1,000 mg Divalproex Sodium (Depakote Er(Once Daily)) 500 mg PO HS [facility] Enoxaparin Sodium (Lovenox) 40 mg SC HS [facility] PRN Reason: Protocol Last Admin: 09/10/17 21:49 Dose: 40 mg Hydrochlorothiazide (Microzide) 12.5 mg PO DAILY [facility] Last Admin: 09/11/17 08:39 Dose: 12.5 mg Sodium Chloride (Sodium Chloride 0.9%) 1,000 mls @ 150 mls/hr IV .Q6H40M [facility] Stop: 09/12/17 07:05 Last Admin: 09/11/17 07:59 Dose: 150 mls/hr Ketoconazole (Nizoral) 1 applic TOP BID [facility] Last Admin: 09/11/17 08:40 Dose: 1 u Ketorolac Tromethamine (Toradol) 15 mg IVP Q6 PRN PRN Reason: Pain, moderate (4-7) Olanzapine (Zyprexa) 5 mg PO HS [facility] Last Admin: 09/09/17 22:11 Dose: 5 mg Ondansetron HCl (Zofran Inj) 4 mg IVP Q6 PRN PRN Reason: Nausea/Vomiting Polyethylene Glycol (Miralax) 17 gm PO DAILY [facility] Last Admin: 09/11/17 08:39 Dose: 17 gm Saliva Substitute (First Magic Mouthwash) 5 ml PO TID [facility] Last Admin: 09/11/17 08:38 Dose: 5 ml Valsartan (Diovan) 160 mg PO DAILY [facility] Last Admin: 09/11/17 08:39 Dose: 160 mg Results - Vital Signs Recent Vital Signs: Last Vital Signs Temp 100.0 F H 09/11/17 08:10 Pulse 88 09/11/17 08:10 Resp 20 09/11/17 08:10 BP 105/64 09/11/17 08:10 Pulse Ox 95 09/11/17 08:10 - Labs Result Diagrams: 09/11/17 05:45 09/11/17 05:45 Labs: Laboratory Results - last 24 hr 09/09/17 09/10/17 09/11/17 07:00 12:40 05:45 WBC 21.6 H D RBC 3.38 L Hgb 10.4 L Hct 31.3 L MCV 92.7 MCH 30.9 MCHC 33.3 RDW 13.9 Plt Count 232 Sodium Potassium Chloride Carbon Dioxide Anion Gap BUN Creatinine Est GFR ( Amer) Est GFR (Non-Af Amer) Random Glucose Calcium Total Bilirubin AST ALT Alkaline Phosphatase Total Protein Albumin Globulin Albumin/Globulin Ratio Urine Color Yellow Urine Clarity Slighty-cloudy Urine pH 6.0 Ur Specific [place] 1.017 Urine Protein Negative Urine Glucose (UA) Neg Urine Ketones Trace Urine Blood Negative Urine Nitrate Negative Urine Bilirubin Negative Urine Urobilinogen 4.0 H Ur Leukocyte Esterase Neg Urine RBC (Auto) 2 Urine Microscopic WBC 1 Ur Squamous Epith Cells < 1 Urine Bacteria Rare Hyaline Casts 0-2 U Ethyl Alcohol Screen Negative 09/11/17 05:45 WBC RBC Hgb Hct MCV MCH MCHC RDW Plt Count Sodium 135 Potassium 3.7 Chloride 99 Carbon Dioxide 29 Anion Gap 11 BUN 26 H Creatinine 1.6 H Est GFR ( Amer) 38 Est GFR (Non-Af Amer) 31 Random Glucose 122 H Calcium 8.0 L Total Bilirubin 1.0 AST 68 H D ALT 31 Alkaline Phosphatase 87 Total Protein 6.0 L Albumin 2.8 L Globulin 3.3 Albumin/Globulin Ratio 0.8 L Urine Color Urine Clarity Urine pH Ur Specific [place] Urine Protein Urine Glucose (UA) Urine Ketones Urine Blood Urine Nitrate Urine Bilirubin Urine Urobilinogen Ur Leukocyte Esterase Urine RBC (Auto) Urine Microscopic WBC Ur Squamous Epith Cells Urine Bacteria Hyaline Casts U Ethyl Alcohol Screen
--- NOTE | 2017-09-11 14:54 | CP.PCM.PN ---
Subjective - Date & Time of Evaluation Date of Evaluation: 09/11/17 Time of Evaluation: 07:45 Objective - Vital Signs/Intake and Output Vital Signs (last 24 hours): Temp Pulse Resp BP Pulse Ox 98 F 88 20 105/64 95 09/11/17 09:00 09/11/17 08:10 09/11/17 08:10 09/11/17 08:10 09/11/17 08:10 - Medications Medications: Current Medications Acetaminophen (Tylenol 325mg Tab) 650 mg PO Q6 PRN PRN Reason: Fever >100.4 F Last Admin: 09/10/17 09:06 Dose: 650 mg Albuterol Sulfate (Albuterol 0.083% Inhal Mariely (2.5 Mg/3 Ml) Ud) 2.5 mg IH Q6H PRN PRN Reason: Shortness of Breath Aspirin (Ecotrin) 81 mg PO DAILY [facility] Last Admin: 09/11/17 08:39 Dose: 81 mg Divalproex Sodium (Depakote Er(Once Daily)) 1,000 mg PO HS [facility] Last Admin: 09/09/17 22:11 Dose: 1,000 mg Divalproex Sodium (Depakote Er(Once Daily)) 500 mg PO HS [facility] Enoxaparin Sodium (Lovenox) 40 mg SC [facility] PRN Reason: Protocol Last Admin: 09/10/17 21:49 Dose: 40 mg Hydrochlorothiazide (Microzide) 12.5 mg PO DAILY [facility] Last Admin: 09/11/17 08:39 Dose: 12.5 mg Sodium Chloride (Sodium Chloride 0.9%) 1,000 mls @ 150 mls/hr IV .Q6H40M [facility] Stop: 09/12/17 07:05 Last Admin: 09/11/17 07:59 Dose: 150 mls/hr Ketoconazole (Nizoral) 1 applic TOP BID [facility] Last Admin: 09/11/17 08:40 Dose: 1 u Ketorolac Tromethamine (Toradol) 15 mg IVP Q6 PRN PRN Reason: Pain, moderate (4-7) Olanzapine (Zyprexa) 5 mg PO HS [facility] Last Admin: 09/09/17 22:11 Dose: 5 mg Ondansetron HCl (Zofran Inj) 4 mg IVP Q6 PRN PRN Reason: Nausea/Vomiting Polyethylene Glycol (Miralax) 17 gm PO DAILY [facility] Last Admin: 09/11/17 08:39 Dose: 17 gm Saliva Substitute (First Magic Mouthwash) 5 ml PO TID [facility] Last Admin: 09/11/17 13:07 Dose: 5 ml Valsartan (Diovan) 160 mg PO DAILY [facility] Last Admin: 09/11/17 08:39 Dose: 160 mg - Labs Labs: 09/11/17 05:45 09/11/17 05:45 PT 12.8 Seconds (9.8-13.1) 09/08/17 12:52 INR 1.2 (0.9-1.2) 09/08/17 12:52 APTT 30.6 Seconds (25.6-37.1) 09/08/17 12:52
--- NOTE | 2017-09-11 16:21 | CP.PCM.PN ---
Subjective - Date & Time of Evaluation Date of Evaluation: 09/11/17 Time of Evaluation: 16:28 - Subjective Subjective: I D NOTE PATIENT EXAMINED ,,CHART REVIEWED HAS AREA OF ERYTHEMA THAT IS SWOLLEN AND PAINFUL ALSO POSSIBLE IMMUNE REACTION SEE ORDERS FOR ABOVE US OF SHOULDER STAT CBC Objective - Vital Signs/Intake and Output Vital Signs (last 24 hours): Temp Pulse Resp BP Pulse Ox 98 F 88 20 105/64 95 09/11/17 09:00 09/11/17 08:10 09/11/17 08:10 09/11/17 08:10 09/11/17 08:10 - Medications Medications: Current Medications Acetaminophen (Tylenol 325mg Tab) 650 mg PO Q6 PRN PRN Reason: Fever >100.4 F Last Admin: 09/10/17 09:06 Dose: 650 mg Albuterol Sulfate (Albuterol 0.083% Inhal Mariely (2.5 Mg/3 Ml) Ud) 2.5 mg IH Q6H PRN PRN Reason: Shortness of Breath Aspirin (Ecotrin) 81 mg PO DAILY [facility] Last Admin: 09/11/17 08:39 Dose: 81 mg Divalproex Sodium (Depakote Er(Once Daily)) 1,000 mg PO HS [facility] Last Admin: 09/09/17 22:11 Dose: 1,000 mg Divalproex Sodium (Depakote Er(Once Daily)) 500 mg PO HS [facility] Enoxaparin Sodium (Lovenox) 40 mg SC HS [facility] PRN Reason: Protocol Last Admin: 09/10/17 21:49 Dose: 40 mg Hydrochlorothiazide (Microzide) 12.5 mg PO DAILY [facility] Last Admin: 09/11/17 08:39 Dose: 12.5 mg Sodium Chloride (Sodium Chloride 0.9%) 1,000 mls @ 150 mls/hr IV .Q6H40M [facility] Stop: 09/12/17 07:05 Last Admin: 09/11/17 07:59 Dose: 150 mls/hr Ketoconazole (Nizoral) 1 applic TOP BID [facility] Last Admin: 09/11/17 08:40 Dose: 1 u Ketorolac Tromethamine (Toradol) 15 mg IVP Q6 PRN PRN Reason: Pain, moderate (4-7) Olanzapine (Zyprexa) 5 mg PO HS [facility] Last Admin: 09/09/17 22:11 Dose: 5 mg Ondansetron HCl (Zofran Inj) 4 mg IVP Q6 PRN PRN Reason: Nausea/Vomiting Polyethylene Glycol (Miralax) 17 gm PO DAILY [facility] Last Admin: 09/11/17 08:39 Dose: 17 gm Saliva Substitute (First Magic Mouthwash) 5 ml PO TID [facility] Last Admin: 09/11/17 13:07 Dose: 5 ml Valsartan (Diovan) 160 mg PO DAILY [facility] Last Admin: 09/11/17 08:39 Dose: 160 mg - Labs Labs: 09/11/17 05:45 09/11/17 05:45 PT 12.8 Seconds (9.8-13.1) 09/08/17 12:52 INR 1.2 (0.9-1.2) 09/08/17 12:52 APTT 30.6 Seconds (25.6-37.1) 09/08/17 12:52
--- NOTE | 2017-09-11 18:29 | US ---
Date of service: 09/11/2017 PROCEDURE: Ultrasound soft tissue, right upper extremity HISTORY: RIGHT SHOULDER (LATERAL) CELLULITIS ? COMPARISON: None. TECHNIQUE: Grayscale and color Doppler evaluation of the right shoulder soft tissues FINDINGS: Minimal edema/skin thickening in the area of concern of the right shoulder soft tissues relative to the left side. Vessels in this area are patent. IMPRESSION: Minimal edema/ skin thickening in the area of concern.
[2017-09-11 19:08] LABS: BASO # 0.1 K/uL (0.0-0.2); BASO % 0.4 % (0.0-2.0); EOS # 0.1 K/uL (0.0-0.7); EOS % 0.4 % (0.0-4.0); HEMOGLOBIN 10.6 g/dL (12.0-16.0); LYMPH # 2.2 K/uL (1.0-4.3); LYMPH % 11.5 % (20.0-40.0); MEAN CELL VOLUME 92.6 fl (81.0-99.0); MEAN CORPUSCULAR HEMOGLOBIN 31.1 pg (27.0-31.0); MEAN CORPUSCULAR HGB CONC 33.5 g/dL (33.0-37.0); MEAN PLATELET VOLUME 7.9 fl (7.2-11.7); MONO # 1.6 K/uL (0.0-0.8); MONO % 8.6 % (0.0-10.0); NEUT # 14.9 K/uL (1.8-7.0); NEUT % 79.1 % (50.0-75.0); RBC 3.43 Mil/uL (3.80-5.20); WHITE BLOOD COUNT 18.9 K/uL (4.8-10.8)
[2017-09-11] MEDS: Clindamycin 600mg/50ml NS 600 MG/50 ML BAG IVPB SCH (21:15)
[2017-09-11] MEDS: Divalproex 500 mg ER (ONCE DAILY formulation) PO SCH (21:18)
[2017-09-11] MEDS: Enoxaparin 40 mg Syringe SC SCH (21:18)
[2017-09-12 07:23] LABS: BASO # 0.1 K/uL (0.0-0.2); BASO % 1.1 % (0.0-2.0); EOS # 0.1 K/uL (0.0-0.7); EOS % 0.8 % (0.0-4.0); HEMOGLOBIN 10.5 g/dL (12.0-16.0); LYMPH # 2.2 K/uL (1.0-4.3); LYMPH % 16.4 % (20.0-40.0); MEAN CELL VOLUME 91.4 fl (81.0-99.0); MEAN CORPUSCULAR HEMOGLOBIN 31.8 pg (27.0-31.0); MEAN CORPUSCULAR HGB CONC 34.8 g/dL (33.0-37.0); MEAN PLATELET VOLUME 8.1 fl (7.2-11.7); MONO # 0.7 K/uL (0.0-0.8); MONO % 5.4 % (0.0-10.0); NEUT # 10.5 K/uL (1.8-7.0); NEUT % 76.3 % (50.0-75.0); NRBC % 0.1 % (0.0-0.0); RBC 3.3 Mil/uL (3.80-5.20); RED CELL DISTRIBUTION WIDTH 13.9 % (11.5-14.5); WHITE BLOOD COUNT 13.7 K/uL (4.8-10.8)
[2017-09-12 08:14] LABS: BLOOD UREA NITROGEN 21 mg/dl (7-17); CALCIUM 8.3 mg/dL (8.4-10.2); GFR AFRICAN-AMERICAN > 60; GFR NON-AFRICAN AMERICAN > 60
--- NOTE | 2017-09-12 10:58 | CP.PCM.PN ---
Subjective - Date & Time of Evaluation Date of Evaluation: 09/12/17 Time of Evaluation: 07:00 - Subjective Subjective: pt seen and examined at bedside this morning. Awake and alert. No acute events overnight. Afebrile since 10am yesterday, however right deltoid area still with pain/erythema. Evaluated marked area, there is now erythema crossing past original markings. Was seen by ID. UE u/s reviewed. Leukocytosis still present but trending down. Started on Cleocin by ID. Objective - Vital Signs/Intake and Output Vital Signs (last 24 hours): Temp Pulse Resp BP Pulse Ox 98.1 F 69 18 135/66 93 L 09/12/17 08:48 09/12/17 08:48 09/12/17 08:48 09/12/17 08:48 09/12/17 08:48 Intake and Output: 09/12/17 09/12/17 06:59 18:59 Intake Total 1550 Balance 1550 - Medications Medications: Current Medications Acetaminophen (Tylenol 325mg Tab) 650 mg PO Q6 PRN PRN Reason: Fever >100.4 F Last Admin: 09/10/17 09:06 Dose: 650 mg Albuterol Sulfate (Albuterol 0.083% Inhal Mariely (2.5 Mg/3 Ml) Ud) 2.5 mg IH Q6H PRN PRN Reason: Shortness of Breath Last Admin: 09/11/17 23:59 Dose: 2.5 mg Aspirin (Ecotrin) 81 mg PO DAILY [facility] Last Admin: 09/11/17 08:39 Dose: 81 mg Divalproex Sodium (Depakote Er(Once Daily)) 1,000 mg PO HS [facility] Last Admin: 09/09/17 22:11 Dose: 1,000 mg Divalproex Sodium (Depakote Er(Once Daily)) 500 mg PO HS [facility] Last Admin: 09/11/17 21:18 Dose: 500 mg Enoxaparin Sodium (Lovenox) 40 mg SC HS [facility] PRN Reason: Protocol Last Admin: 09/11/17 21:18 Dose: 40 mg Hydrochlorothiazide (Microzide) 12.5 mg PO DAILY [facility] Last Admin: 09/11/17 08:39 Dose: 12.5 mg Clindamycin Phosphate (Cleocin In Normal Saline) 600 mg in 50 mls @ 46.296 mls/ hr IVPB Q12 [facility] PRN Reason: Protocol Last Admin: 09/11/17 21:15 Dose: 46.296 mls/hr Ketoconazole (Nizoral) 1 applic TOP BID [facility] Last Admin: 09/11/17 16:29 Dose: 1 u Ketorolac Tromethamine (Toradol) 15 mg IVP Q6 PRN PRN Reason: Pain, moderate (4-7) Olanzapine (Zyprexa) 5 mg PO HS [facility] Last Admin: 09/11/17 21:18 Dose: 5 mg Ondansetron HCl (Zofran Inj) 4 mg IVP Q6 PRN PRN Reason: Nausea/Vomiting Polyethylene Glycol (Miralax) 17 gm PO DAILY [facility] Last Admin: 09/11/17 08:39 Dose: 17 gm Saliva Substitute (First Magic Mouthwash) 5 ml PO TID [facility] Last Admin: 09/11/17 16:29 Dose: 5 ml Valsartan (Diovan) 160 mg PO DAILY [facility] Last Admin: 09/11/17 08:39 Dose: 160 mg - Labs Labs: 09/12/17 05:30 09/12/17 08:00 PT 12.8 Seconds (9.8-13.1) 09/08/17 12:52 INR 1.2 (0.9-1.2) 09/08/17 12:52 APTT 30.6 Seconds (25.6-37.1) 09/08/17 12:52 - Constitutional Appears: Non-toxic, No Acute Distress - Head Exam Head Exam: ATRAUMATIC, NORMOCEPHALIC - Eye Exam Eye Exam: EOMI, PERRL - ENT Exam ENT Exam: Mucous Membranes Moist - Neck Exam Neck Exam: Full ROM. absent: Lymphadenopathy - Respiratory Exam Respiratory Exam: Clear to Ausculation Bilateral, NORMAL BREATHING PATTERN. absent: Rales, Rhonchi, Wheezes - Cardiovascular Exam Cardiovascular Exam: REGULAR RHYTHM, RRR, +S1, +S2. absent: JVD, Rubs - GI/Abdominal Exam GI & Abdominal Exam: Soft, Normal Bowel Sounds. absent: Firm, Guarding, Rigid, Tenderness - Extremities Exam Extremities Exam: Normal Capillary Refill, Normal Inspection. absent: Pedal Edema - Neurological Exam Neurological Exam: Alert, Awake, CN II-XII Intact, Normal Gait, Oriented x3 - Psychiatric Exam Psychiatric exam: Normal Affect, Normal Mood - Skin Additional comments: RUE: 10cm area of erythema overlying right lateral deltoid muscle. It has spread past original pen marking. Tender to palpation. Fairly firm underneath when compared to surrounding anatomy. No discharge. No sign of trauma. Assessment and Plan - Assessment and Plan (Free Text) Assessment: 77 yo Female with PMHx of HTN, NIDDM, Schizophrenia, Bipolar disorder, Anxiety admitted with general weakness/lethargy now with newly diagnosed right upper extremity cellulitis. Plan: Right Upper Extremity Cellulitis -likely 2/2 to inoculation from Haldol injection -leukcytosis improving -ESR 55 -afebrile -ID on board, awaiting further recommnedations -On IV clindamycin -repeat AM labs Leukocytosis -improving -WBC 13.7 today -patient afebrile today, had fever of 102.9 in AM yesterday -will repeat today CBC with diff -Will consult ID if needed -CXR done unremarkable -UA unremarkable -BC done pending results Generalized Weakness -Depakote 500 po qhs, decreased from 1000 due to elevated VPA level and somnolence -tolerated change in medication dosage -CXR 09/10/17: unremarkable, no active disease, no interval change compared to prior exam -EKG: NormalSR, no evidence of ST-T wave changes -abd/pelvis CT reported large bilateral renal cysts, stable in size in comparison to a CT done on june/2017 -Possibly associated with symptoms of Depression. -Psychiatry consult is on board. 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
[2017-09-12] MEDS ORDERED: Potassium Chloride 20 mEq/15 ml LIQ UD PO ONE (11:33)
[2017-09-12] MEDS: Clindamycin 600mg/50ml NS 600 MG/50 ML BAG IVPB SCH ×2 (11:41→21:45)
[2017-09-12] MEDS: Mag&Al/Simet/Diphen/Lido 237 ML KIT PO SCH ×3 (11:43→16:45)
[2017-09-12] MEDS: Sodium Chloride 0.9% 1,000 ML IV SCH (11:44)
[2017-09-12] MEDS: POLYETHYLENE GLYCOL 3350 17 GM/Dose PACKET PO SCH (11:44)
[2017-09-12] MEDS ORDERED: Sodium Chloride 0.9% 1,000 ML IV SCH (12:00)
[2017-09-12 12:09] LABS: COMPLEMENT C4 47.2 mg/dL (14.0-44.0)
[2017-09-12] MEDS: Divalproex 500 mg ER (ONCE DAILY formulation) PO SCH (21:44)
[2017-09-12] MEDS: Enoxaparin 40 mg Syringe SC SCH (21:44)
[2017-09-13 07:33] LABS: HEMOGLOBIN 10.2 g/dL (12.0-16.0); MEAN CORPUSCULAR HGB CONC 34.8 g/dL (33.0-37.0); RBC 3.17 Mil/uL (3.80-5.20); WHITE BLOOD COUNT 7.8 K/uL (4.8-10.8)
[2017-09-13 07:50] LABS: BLOOD UREA NITROGEN 12 mg/dl (7-17); CALCIUM 8.4 mg/dL (8.4-10.2); GFR AFRICAN-AMERICAN > 60; GFR NON-AFRICAN AMERICAN > 60
--- NOTE | 2017-09-13 08:26 | CP.PCM.PN ---
Subjective - Date & Time of Evaluation Date of Evaluation: 09/13/17 Time of Evaluation: 08:15 - Subjective Subjective: Patient seen and examined, NAD, patient is awake, alert, afebrile yesterday, c/ o discomfort to the lateral aspect of right arm, no leukocytois today on labs, denies N/V/D or abdominal pain. Objective - Vital Signs/Intake and Output Vital Signs (last 24 hours): Temp Pulse Resp BP Pulse Ox 98.3 F 66 18 154/76 H 95 09/13/17 01:16 09/13/17 01:16 09/13/17 01:16 09/13/17 01:16 09/13/17 01:16 - Medications Medications: Current Medications Acetaminophen (Tylenol 325mg Tab) 650 mg PO Q6 PRN PRN Reason: Fever >100.4 F Last Admin: 09/10/17 09:06 Dose: 650 mg Albuterol Sulfate (Albuterol 0.083% Inhal Mariely (2.5 Mg/3 Ml) Ud) 2.5 mg IH Q6H PRN PRN Reason: Shortness of Breath Last Admin: 09/11/17 23:59 Dose: 2.5 mg Aspirin (Ecotrin) 81 mg PO DAILY [facility] Last Admin: 09/12/17 11:43 Dose: 81 mg Divalproex Sodium (Depakote Er(Once Daily)) 1,000 mg PO HS [facility] Last Admin: 09/09/17 22:11 Dose: 1,000 mg Divalproex Sodium (Depakote Er(Once Daily)) 500 mg PO HS [facility] Last Admin: 09/12/17 21:44 Dose: 500 mg Enoxaparin Sodium (Lovenox) 40 mg SC HS [facility] PRN Reason: Protocol Last Admin: 09/12/17 21:44 Dose: 40 mg Hydrochlorothiazide (Microzide) 12.5 mg PO DAILY [facility] Last Admin: 09/12/17 11:43 Dose: 12.5 mg Clindamycin Phosphate (Cleocin In Normal Saline) 600 mg in 50 mls @ 46.296 mls/ hr IVPB Q12 [facility] PRN Reason: Protocol Last Admin: 09/12/17 21:45 Dose: 46.296 mls/hr Sodium Chloride (Sodium Chloride 0.9%) 1,000 mls @ 75 mls/hr IV .[id number] [facility] Stop: 09/13/17 11:49 Last Admin: 09/12/17 13:56 Dose: 75 mls/hr Ketoconazole (Nizoral) 1 applic TOP BID [facility] Last Admin: 09/12/17 16:45 Dose: 1 u Ketorolac Tromethamine (Toradol) 15 mg IVP Q6 PRN PRN Reason: Pain, moderate (4-7) Olanzapine (Zyprexa) 5 mg PO HS [facility] Last Admin: 09/12/17 21:44 Dose: 5 mg Ondansetron HCl (Zofran Inj) 4 mg IVP Q6 PRN PRN Reason: Nausea/Vomiting Polyethylene Glycol (Miralax) 17 gm PO DAILY [facility] Last Admin: 09/12/17 11:44 Dose: Not Given Saliva Substitute (First Magic Mouthwash) 5 ml PO TID [facility] Last Admin: 09/12/17 16:45 Dose: 5 ml Valsartan (Diovan) 160 mg PO DAILY [facility] Last Admin: 09/12/17 11:43 Dose: 160 mg - Labs Labs: 09/13/17 06:30 09/13/17 06:30 PT 12.8 Seconds (9.8-13.1) 09/08/17 12:52 INR 1.2 (0.9-1.2) 09/08/17 12:52 APTT 30.6 Seconds (25.6-37.1) 09/08/17 12:52 - Constitutional Appears: No Acute Distress - Head Exam Head Exam: ATRAUMATIC, NORMOCEPHALIC - Eye Exam Eye Exam: PERRL - ENT Exam ENT Exam: Mucous Membranes Moist - Neck Exam Neck Exam: Full ROM - Respiratory Exam Respiratory Exam: Clear to Ausculation Bilateral. absent: Rales, Rhonchi, Wheezes - Cardiovascular Exam Cardiovascular Exam: REGULAR RHYTHM, +S1, +S2 - GI/Abdominal Exam GI & Abdominal Exam: Soft, Normal Bowel Sounds - Extremities Exam Extremities Exam: Full ROM - Neurological Exam Neurological Exam: Alert, Awake - Psychiatric Exam Psychiatric exam: Normal Affect, Normal Mood - Skin Skin Exam: Normal Color, Warm Additional comments: there is erythema mild erythema and swelling to the lateral aspect of right arm to deltoid area. Assessment and Plan - Assessment and Plan (Free Text) Assessment: 77 yo Female with PMHx of HTN, NIDDM, Schizophrenia, Bipolar disorder, Anxiety admitted with general weakness, found with new leukocytosis on 09/11 and Dx with right upper extremity cellulitis. Plan: Right Upper Extremity Cellulitis -improving, less erythema -likely 2/2 to right arm injection -WBc wnl today -ESR 55 on 09/12 -afebrile -ID on board, will f/u recomm -On IV clindamycin Day 3 -repeat AM labs Leukocytosis -resolved -WBC 7.8 today -patient afebrile today -CBC in AM -CXR done unremarkable -UA unremarkable Generalized Weakness -improving -Depakote 500 po qhs, decreased from 1000 due to elevated VPA level and somnolence -tolerated change in medication dosage -CXR 09/10/17: unremarkable, no active disease, no interval change compared to prior exam -EKG: NormalSR, no evidence of ST-T wave changes -abd/pelvis CT reported large bilateral renal cysts, stable in size in comparison to a CT done on june/2017 -Psychiatry consult is on board. 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
[2017-09-13 08:35] VITALS: RESP 20
[2017-09-13] MEDS: Clindamycin 600mg/50ml NS 600 MG/50 ML BAG IVPB SCH ×2 (10:10→21:22)
[2017-09-13] MEDS: Mag&Al/Simet/Diphen/Lido 237 ML KIT PO SCH ×3 (10:12→16:52)
[2017-09-13] MEDS: POLYETHYLENE GLYCOL 3350 17 GM/Dose PACKET PO SCH (10:13)
[2017-09-13] MEDS: Divalproex 500 mg ER (ONCE DAILY formulation) PO SCH ×2 (21:23)
[2017-09-13] MEDS: Enoxaparin 40 mg Syringe SC SCH (21:24)
[2017-09-14] MEDS: Clindamycin 600mg/50ml NS 600 MG/50 ML BAG IVPB SCH ×2 (09:56→21:35)
[2017-09-14] MEDS: Mag&Al/Simet/Diphen/Lido 237 ML KIT PO SCH ×3 (09:57→16:54)
[2017-09-14] MEDS: POLYETHYLENE GLYCOL 3350 17 GM/Dose PACKET PO SCH ×2 (09:58→10:05)
--- NOTE | 2017-09-14 15:14 | CP.PCM.PN ---
Subjective - Date & Time of Evaluation Date of Evaluation: 09/14/17 Time of Evaluation: 08:20 - Subjective Subjective: Pt evaluated and examined bedside. Awake and alert and NAD. No acute events overnight. Leukocytosis resolved. Started on Cleocin by ID. Denies any fever, chills, SOB, CP, N/V/D. Objective - Vital Signs/Intake and Output Vital Signs (last 24 hours): Temp Pulse Resp BP Pulse Ox 97.8 F 89 20 130/76 94 L 09/14/17 08:08 09/14/17 09:00 09/14/17 08:08 09/14/17 09:00 09/14/17 08:08 - Medications Medications: Current Medications Acetaminophen (Tylenol 325mg Tab) 650 mg PO Q6 PRN PRN Reason: Fever >100.4 F Last Admin: 09/10/17 09:06 Dose: 650 mg Albuterol Sulfate (Albuterol 0.083% Inhal Mariely (2.5 Mg/3 Ml) Ud) 2.5 mg IH Q6H PRN PRN Reason: Shortness of Breath Last Admin: 09/11/17 23:59 Dose: 2.5 mg Aspirin (Ecotrin) 81 mg PO DAILY [facility] Last Admin: 09/14/17 09:57 Dose: 81 mg Divalproex Sodium (Depakote Er(Once Daily)) 1,000 mg PO HS [facility] Last Admin: 09/13/17 21:23 Dose: 1,000 mg Divalproex Sodium (Depakote Er(Once Daily)) 500 mg PO HS [facility] Last Admin: 09/13/17 21:23 Dose: 500 mg Enoxaparin Sodium (Lovenox) 40 mg SC HS [facility] PRN Reason: Protocol Last Admin: 09/13/17 21:24 Dose: 40 mg Hydrochlorothiazide (Microzide) 12.5 mg PO DAILY [facility] Last Admin: 09/14/17 09:57 Dose: 12.5 mg Clindamycin Phosphate (Cleocin In Normal Saline) 600 mg in 50 mls @ 46.296 mls/ hr IVPB Q12 [facility] PRN Reason: Protocol Last Admin: 09/14/17 09:56 Dose: 46.296 mls/hr Ketoconazole (Nizoral) 1 applic TOP BID [facility] Last Admin: 09/14/17 09:58 Dose: 1 u Ketorolac Tromethamine (Toradol) 15 mg IVP Q6 PRN PRN Reason: Pain, moderate (4-7) Olanzapine (Zyprexa) 5 mg PO HS [facility] Last Admin: 09/13/17 21:24 Dose: 5 mg Ondansetron HCl (Zofran Inj) 4 mg IVP Q6 PRN PRN Reason: Nausea/Vomiting Polyethylene Glycol (Miralax) 17 gm PO DAILY [facility] Last Admin: 09/14/17 10:05 Dose: Not Given Saliva Substitute (First Magic Mouthwash) 5 ml PO TID [facility] Last Admin: 09/14/17 13:11 Dose: Not Given Valsartan (Diovan) 160 mg PO DAILY [facility] Last Admin: 09/14/17 09:57 Dose: 160 mg - Labs Labs: 09/13/17 06:30 09/13/17 06:30 PT 12.8 Seconds (9.8-13.1) 09/08/17 12:52 INR 1.2 (0.9-1.2) 09/08/17 12:52 APTT 30.6 Seconds (25.6-37.1) 09/08/17 12:52 - Constitutional Appears: Well, Non-toxic, No Acute Distress - Head Exam Head Exam: ATRAUMATIC, NORMAL INSPECTION, NORMOCEPHALIC - Eye Exam Eye Exam: EOMI, Normal appearance, PERRL Pupil Exam: NORMAL ACCOMODATION, PERRL - ENT Exam ENT Exam: Mucous Membranes Moist - Neck Exam Neck Exam: Full ROM - Respiratory Exam Respiratory Exam: Clear to Ausculation Bilateral, NORMAL BREATHING PATTERN. absent: Rales, Rhonchi, Wheezes Assessment and Plan - Assessment and Plan (Free Text) Assessment: 77 yo Female with PMHx of HTN, NIDDM, Schizophrenia, Bipolar disorder, Anxiety admitted with general weakness, found with new leukocytosis on 09/11 and Dx with right upper extremity cellulitis. Plan: Right Upper Extremity Cellulitis -improving, less erythema, afebrile -likely 2/2 to right arm injection -WBC WNL 09/13 -ESR 55 on 09/12 -ID on board, will f/u recomm -On IV clindamycin Day 4 -repeat AM labs Generalized Weakness -improving -Depakote 500 po qhs, decreased from 1000 due to elevated VPA level and somnolence -tolerated change in medication dosage -CXR 09/10/17: unremarkable, no active disease, no interval change compared to prior exam -EKG: NormalSR, no evidence of ST-T wave changes -abd/pelvis CT reported large bilateral renal cysts, stable in size in comparison to a CT done on june/2017 -Psychiatry consult is on board. -PT recommended Skilled physical therapy. 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
--- NOTE | 2017-09-14 15:24 | CP.PCM.DIS ---
Provider - Provider Date of Admission: 09/08/17 16:35 Attending physician: Cecilio Miranda MD Time Spent in preparation of Discharge (in minutes): 15 Diagnosis - Discharge Diagnosis (1) Generalized weakness Status: Acute (2) Cellulitis of right upper extremity Status: Acute Hospital Course - Lab Results Lab Results: Micro Results 09/10/17 10:33 Blood Blood Culture - Preliminary NO GROWTH AFTER 4 DAYS 09/10/17 10:33 Blood Blood Culture - Preliminary NO GROWTH AFTER 4 DAYS 09/10/17 13:25 Urine Urine Culture - Final 10-50,000 CFU/ML. MULTIPLE SPECIES. PROBABLE CONTAMINATION. Most Recent Lab Values WBC 7.8 K/uL (4.8-10.8) 09/13/17 06:30 RBC 3.17 Mil/uL (3.80-5.20) L 09/13/17 06:30 Hgb 10.2 g/dL (12.0-16.0) L 09/13/17 06:30 Hct 29.1 % (34.0-47.0) L 09/13/17 06:30 MCV 92.0 fl (81.0-99.0) 09/13/17 06:30 MCH 32.0 pg (27.0-31.0) H 09/13/17 06:30 MCHC 34.8 g/dL (33.0-37.0) 09/13/17 06:30 RDW 14.0 % (11.5-14.5) 09/13/17 06:30 Plt Count 283 K/uL (130-400) 09/13/17 06:30 MPV 8.1 fl (7.2-11.7) 09/12/17 05:30 Neut % (Auto) 76.3 % (50.0-75.0) H 09/12/17 05:30 Lymph % (Auto) 16.4 % (20.0-40.0) L 09/12/17 05:30 Major % (Auto) 5.4 % (0.0-10.0) 09/12/17 05:30 Eos % (Auto) 0.8 % (0.0-4.0) 09/12/17 05:30 Baso % (Auto) 1.1 % (0.0-2.0) 09/12/17 05:30 Neut # (Auto) 10.5 K/uL (1.8-7.0) H 09/12/17 05:30 Lymph # (Auto) 2.2 K/uL (1.0-4.3) 09/12/17 05:30 Major # (Auto) 0.7 K/uL (0.0-0.8) 09/12/17 05:30 Eos # (Auto) 0.1 K/uL (0.0-0.7) 09/12/17 05:30 Baso # (Auto) 0.1 K/uL (0.0-0.2) 09/12/17 05:30 Neutrophils % (Manual) 54 % (42-75) 09/08/17 12:52 Band Neutrophils % 5 % (0-2) H 09/08/17 12:52 Lymphocytes % (Manual) 22 % (20-50) 09/08/17 12:52 Monocytes % (Manual) 18 % (0-10) H 09/08/17 12:52 Basophils % (Manual) 1 % (0-2) 09/08/17 12:52 Platelet Estimate Normal (NORMAL) 09/08/17 12:52 RBC Morphology Normal (NORMAL) 09/08/17 12:52 ESR 55 mm/hr (0-30) H 09/12/17 05:30 PT 12.8 Seconds (9.8-13.1) 09/08/17 12:52 INR 1.2 (0.9-1.2) 09/08/17 12:52 APTT 30.6 Seconds (25.6-37.1) 09/08/17 12:52 Sodium 138 mmol/l (132-148) 09/13/17 06:30 Potassium 4.0 MMOL/L (3.6-5.0) 09/13/17 06:30 Chloride 100 mmol/L (98-107) 09/13/17 06:30 Carbon Dioxide 31 mmol/L (22-30) H 09/13/17 06:30 Anion Gap 11 (10-20) 09/13/17 06:30 BUN 12 mg/dl (7-17) 09/13/17 06:30 Creatinine 0.8 mg/dl (0.7-1.2) 09/13/17 06:30 Est GFR ( Amer) > 60 09/13/17 06:30 Est GFR (Non-Af Amer) > 60 09/13/17 06:30 POC Glucose (mg/dL) 110 mg/dL (65-110) 09/08/17 17:15 Random Glucose 110 mg/dL (65-105) H 09/13/17 06:30 Hemoglobin A1c 6.6 % (4.2-6.5) H 09/08/17 19:25 Calcium 8.4 mg/dL (8.4-10.2) 09/13/17 06:30 Total Bilirubin 1.0 mg/dl (0.2-1.3) 09/11/17 05:45 AST 68 U/L (14-36) H D 09/11/17 05:45 ALT 31 U/L (9-52) 09/11/17 05:45 Alkaline Phosphatase 87 U/L (38-126) 09/11/17 05:45 Troponin I 0.0180 ng/mL (0.00-0.120) 09/08/17 12:52 Total Protein 6.0 G/DL (6.3-8.2) L 09/11/17 05:45 Albumin 2.8 g/dL (3.5-5.0) L 09/11/17 05:45 Globulin 3.3 gm/dL (2.2-3.9) 09/11/17 05:45 Albumin/Globulin Ratio 0.8 (1.0-2.1) L 09/11/17 05:45 Triglycerides 238 mg/DL (0-149) H 09/08/17 19:25 Cholesterol 167 mg/dL (0-199) 09/08/17 19:25 LDL Cholesterol Direct 97 mg/dL (0-129) 09/08/17 19:25 HDL Cholesterol 18 MG/DL (30-70) L 09/08/17 19:25 Urine Color Yellow (YELLOW) 09/10/17 12:40 Urine Clarity Slighty-cloudy (Clear) 09/10/17 12:40 Urine pH 6.0 (5.0-8.0) 09/10/17 12:40 Ur Specific Brunson 1.017 (1.003-1.030) 09/10/17 12:40 Urine Protein Negative mg/dL (NEGATIVE) 07/12/18 12:40 Urine Glucose (UA) Neg mg/dL (Normal) 09/10/17 12:40 Urine Ketones Trace mg/dL (NEGATIVE) 09/10/17 12:40 Urine Blood Negative (NEGATIVE) 09/10/17 12:40 Urine Nitrate Negative (NEGATIVE) 09/10/17 12:40 Urine Bilirubin Negative (NEGATIVE) 09/10/17 12:40 Urine Urobilinogen 4.0 mg/dL (0.2-1.0) H 09/10/17 12:40 Ur Leukocyte Esterase Neg Madhavi/uL (Negative) 09/10/17 12:40 Urine RBC (Auto) 2 /hpf (0-3) 09/10/17 12:40 Urine Microscopic WBC 1 /hpf (0-5) 09/10/17 12:40 Ur Squamous Epith Cells < 1 /hpf (0-5) 09/10/17 12:40 Urine Bacteria Rare (<OCC) 09/10/17 12:40 Hyaline Casts 0-2 /hpf (0-2) 09/10/17 12:40 Valproic Acid 107.6 ug/mL (50.0-100.0) H 09/10/17 05:25 U Ethyl Alcohol Screen Negative 20 (Negative) 09/09/17 07:00 IgE 391 kU/L (<ci=256) H 09/12/17 05:30 Complement C3 119.0 mg/dL (88.0-165.0) 09/12/17 05:30 Complement C4 47.2 mg/dL (14.0-44.0) H 09/12/17 05:30 - Hospital Course Hospital Course: 77 yo Female with PMHx of HTN, NIDDM, Schizophrenia, Bipolar disorder, Anxiety admitted with general weakness, found with new leukocytosis on 09/11 and Dx with right upper extremity cellulitis. Patient was evaluated. CXR, CT abdomen and pelvis, US upper extremity and labs done. Patient started on IV clindamycin with improvement in cellulites and weakness. Patient will be transferred to TCU for completion of IV Abx and skilled physical therapy. Discharge Exam - Head Exam Head Exam: ATRAUMATIC, NORMAL INSPECTION, NORMOCEPHALIC - Eye Exam Eye Exam: EOMI, Normal appearance, PERRL Pupil Exam: NORMAL ACCOMODATION - ENT Exam ENT Exam: Mucous Membranes Dry - Neck Exam Neck exam: Lymphadenopathy, Tenderness - Respiratory Exam Respiratory Exam: NORMAL BREATHING PATTERN, UNREMARKABLE. absent: Rales, Rhonchi, Wheezes, Respiratory Distress - Cardiovascular Exam Cardiovascular Exam: REGULAR RHYTHM, +S1, +S2 - GI/Abdominal Exam GI & Abdominal Exam: Normal Bowel Sounds - Neurological Exam Neurological exam: Alert, Normal Gait, Oriented x3 - Psychiatric Exam Psychiatric exam: Normal Affect, Normal Mood - Skin Skin Exam: Dry, Intact, Warm Discharge Plan - Follow Up Plan Condition: FAIR Disposition: REHAB FACILITY/REHAB UNIT Patient education suggested?: Yes Instructions: Generalized Weakness (DC) Referrals: Jocelyn Rutledge [Staff Provider] - Cecilio Miranda MD [Family Provider] - Conchis Leblanc MD [Medical Doctor] -
[2017-09-14 16:03] LABS: IMMUNOGLOBULIN G 1341.6 mg/dL (700.0-1600.0); IMMUNOGLOBULIN M 46.2 mg/dL (40.0-230.0)
[2017-09-14 16:25] VITALS: BP 169/80; PULSE 58; TEMP 97.7; O2SAT 98
[2017-09-14] MEDS: Enoxaparin 40 mg Syringe SC SCH (21:36)
[2017-09-14] MEDS: Divalproex 500 mg ER (ONCE DAILY formulation) PO SCH ×2 (21:37)
== END 2017-09-14 22:45 | DRG 683 ==
LOC: EDBD 11:41 → H.ER 11:41 → MERGE 11:41 → H.ERHOLD 16:35 → H.MEDSURG1 17:44
PROVIDERS: ADMIT Family Medicine; ATTEND Family Medicine
PROC: 3E0234Z Introduction of Serum, Toxoid and Vaccine into Muscle, Percutaneous Approach (ICD-10-PCS; principal; 2017-09-09)
DX: N17.9 Acute kidney failure, unspecified (principal); L03.113 Cellulitis of right upper limb; T88.0XXA Infection following immunization, initial encounter; F33.9 Major depressive disorder, recurrent, unspecified; T80.89XA Other complications following infusion, transfusion and therapeutic injection, initial encounter; L21.8 Other seborrheic dermatitis; D72.828 Other elevated white blood cell count; T43.4X5A Adverse effect of butyrophenone and thiothixene neuroleptics, initial encounter; E87.1 Hypo-osmolality and hyponatremia; G89.29 Other chronic pain; E11.9 Type 2 diabetes mellitus without complications; F25.9 Schizoaffective disorder, unspecified; I10 Essential (primary) hypertension; I25.10 Atherosclerotic heart disease of native coronary artery without angina pectoris; R32 Unspecified urinary incontinence; E78.00 Pure hypercholesterolemia, unspecified; F41.9 Anxiety disorder, unspecified; R53.1 Weakness; Y84.8 Other medical procedures as the cause of abnormal reaction of the patient, or of later complication, without mention of misadventure at the time of the procedure; Y92.239 Unspecified place in hospital as the place of occurrence of the external cause; Z23 Encounter for immunization; I25.2 Old myocardial infarction; Z79.82 Long term (current) use of aspirin; Z79.84 Long term (current) use of oral hypoglycemic drugs; Z79.899 Other long term (current) drug therapy

== ENCOUNTER 2017-09-14 21:06 | Inpatient (IN) | payer OTHER ==
[2017-09-14 23:11] VITALS: BMI 27.7
[2017-09-14] MEDS ORDERED: Albuterol 0.083% Inhal Sol (2.5 mg/3 mL) UD IH PRN (23:40)
--- NOTE | 2017-09-15 08:06 | CP.PCM.HP ---
<Pavel Carrasco - Last Filed: 09/15/17 12:32> History of Present Illness - History of Present Illness History of Present Illness: 77 yo Female with PMHx of HTN, NIDDM, Schizophrenia, Bipolar disorder, Anxiety admitted to TCU for generalized weakness and cellulitis of right upper extremity. Patient will be completing IV clindamycin and skilled physical therapy here. Patient is alert, awake, and oriented x 3. Patient's appetite has improved. She feels hungry, currently eating orange. She reports improvement in mood and energy level. She feels motivated to start skilled physical therapy to help her with daily living. Cellulitis/redness and pain on right arm has significantly improved. Denies any fever, chills, CP, SOB, headache or N/V/D Present on Admission - Present on Admission Any Indicators Present on Admission: No History of DVT/PE: No History of Uncontrolled Diabetes: No Urinary Catheter: No Decubitus Ulcer Present: No Review of Systems - Constitutional Constitutional: Weakness. absent: Fatigue, Fever, Headache - EENT Eyes: absent: Change in Vision, Discharge Ears: absent: Ear Discharge - Cardiovascular Cardiovascular: absent: Chest Pain, Diaphoresis, Dyspnea, Edema - Respiratory Respiratory: absent: Cough, Dyspnea, Dyspnea on Exertion, Wheezing - Gastrointestinal Gastrointestinal: absent: Abdominal Pain, Constipation, Diarrhea, Nausea, Vomiting - Genitourinary Genitourinary: absent: Change in Urinary Stream, Dysuria - Reproductive: Female Reproductive:Female: Post Menopausal - Musculoskeletal Musculoskeletal: Muscle Weakness. absent: Back Pain, Muscle Cramps, Myalgias, Numbness, Stiffness Past Patient History - Infectious Disease Hx of Infectious Diseases: None - Past Medical History & Family History Past Medical History?: Yes - Past Social History Smoking Status: Never Smoked - CARDIAC Hx Hypercholesterolemia: Yes Hx Hypertension: Yes - PULMONARY Hx Tuberculosis: No - NEUROLOGICAL Hx Seizures: No - HEENT Hx HEENT Problems: No - RENAL Hx Chronic Kidney Disease: No - ENDOCRINE/METABOLIC Hx Diabetes Mellitus Type 2: Yes - HEMATOLOGICAL/ONCOLOGICAL Hx AIDS: No Hx Human Immunodeficiency Virus (HIV): No - INTEGUMENTARY Hx Dermatological Problems: No - MUSCULOSKELETAL/RHEUMATOLOGICAL Hx Falls: Yes ("2 x last mo") - GASTROINTESTINAL Hx Gastrointestinal Disorders: Yes Hx Constipation: Yes - GENITOURINARY/GYNECOLOGICAL Hx Sexually Transmitted Disorders: No - PSYCHIATRIC Hx Anxiety: Yes Hx Bipolar Disorder: Yes Hx Schizophrenia: Yes Hx Substance Use: No - SURGICAL HISTORY Hx Appendectomy: Yes - ANESTHESIA Hx Anesthesia: Yes Hx Anesthesia Reactions: No Hx Malignant Hyperthermia: No Meds Allergies/Adverse Reactions: Allergies Allergy/AdvReac Type Severity Reaction Status Date / Time No Known Allergies Allergy Verified 07/28/17 09:10 Physical Exam - Constitutional Appears: Non-toxic, No Acute Distress - Head Exam Head Exam: ATRAUMATIC, NORMAL INSPECTION, NORMOCEPHALIC - Eye Exam Eye Exam: EOMI, Normal appearance, PERRL - ENT Exam ENT Exam: Mucous Membranes Moist, Normal Exam - Respiratory Exam Respiratory Exam: Clear to Auscultation Bilateral, NORMAL BREATHING PATTERN. absent: Rales, Rhonchi, Wheezes - Cardiovascular Exam Cardiovascular Exam: REGULAR RHYTHM, +S1, +S2. absent: Systolic Murmur - GI/Abdominal Exam GI & Abdominal Exam: Normal Bowel Sounds, Soft. absent: Tenderness - Extremities Exam Extremities exam: Negative for: joint swelling, pedal edema, tenderness - Neurological Exam Neurological exam: Alert, Normal Gait, Oriented x3 - Psychiatric Exam Psychiatric exam: Normal Affect, Normal Mood - Skin Skin Exam: Dry, Normal Color, Warm Results - Vital Signs Recent Vital Signs: Last Vital Signs Temp Pulse 62 09/14/17 23:49 Resp 18 09/14/17 23:49 BP Pulse Ox 95 09/14/17 23:49 Assessment & Plan - Assessment and Plan (Free Text) Assessment: 77 yo Female with PMHx of HTN, NIDDM, Schizophrenia, Bipolar disorder, Anxiety admitted with general weakness and right upper extremity cellulitis. Plan: Right Upper Extremity Cellulitis -improving, less erythema -afebrile -On IV clindamycin Day 4 -ID consult on board -F/U CBC, BMP tomorrow AM. 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 -stable -consistent mod carb diet -HgbA1C on admission 6.6 -no home meds H/O Schizophrenia - Stable -On Zyprexa 5 mg qd -On Haloperidol 75 mg IM Q21 last dose 08/28 H/O Bipolar disorder -Stable -Depakote 500 po qhs ADLS -lives alone -needs assistance with ADLS -oncology social worker jose DVT prophylaxis -SCDs -Lovenox 40 mg SC <Man Bliss Parviz - Last Filed: 09/17/17 06:53> Results - Vital Signs Recent Vital Signs: Last Vital Signs Temp 97.9 F 09/16/17 21:41 Pulse 71 09/16/17 21:41 Resp 20 09/16/17 21:41 BP 148/72 09/16/17 21:41 Pulse Ox 98 09/16/17 21:41 - Labs Result Diagrams: 09/16/17 05:40 09/16/17 05:40 Labs: Laboratory Results - last 24 hr 09/16/17 09/16/17 05:40 05:40 WBC 7.5 RBC 3.29 L Hgb 10.4 L Hct 29.8 L MCV 90.4 MCH 31.5 H MCHC 34.9 RDW 13.5 Plt Count 341 Sodium 124 L Potassium 3.9 Chloride 88 L Carbon Dioxide 30 Anion Gap 10 BUN 10 Creatinine 0.8 Est GFR ( Amer) > 60 Est GFR (Non-Af Amer) > 60 Random Glucose 98 Calcium 8.2 L Attending/Attestation - Attestation I have personally seen and examined this patient.: Yes I have fully participated in the care of the patient.: Yes I have reviewed all pertinent clinical information: Yes
[2017-09-15 08:12] VITALS: RESP 20
[2017-09-15] MEDS: POLYETHYLENE GLYCOL 3350 17 GM/Dose PACKET PO SCH (08:49)
[2017-09-15] MEDS ORDERED: Clindamycin 600mg/50ml NS 600 MG/50 ML BAG IVPB SCH (09:00)
[2017-09-15] MEDS: Clindamycin 600mg/50ml NS 600 MG/50 ML BAG IVPB SCH (17:16)
[2017-09-15] MEDS: Enoxaparin 40 mg Syringe SC SCH (21:53)
[2017-09-15] MEDS: Divalproex 500 mg ER (ONCE DAILY formulation) PO SCH ×2 (21:54)
[2017-09-16] MEDS: Clindamycin 600mg/50ml NS 600 MG/50 ML BAG IVPB SCH ×2 (06:26→17:16)
[2017-09-16 06:37] LABS: HEMOGLOBIN 10.4 g/dL (12.0-16.0); MEAN CELL VOLUME 90.4 fl (81.0-99.0); MEAN CORPUSCULAR HEMOGLOBIN 31.5 pg (27.0-31.0); MEAN CORPUSCULAR HGB CONC 34.9 g/dL (33.0-37.0); RBC 3.29 Mil/uL (3.80-5.20); RED CELL DISTRIBUTION WIDTH 13.5 % (11.5-14.5); WHITE BLOOD COUNT 7.5 K/uL (4.8-10.8)
[2017-09-16 07:26] LABS: BLOOD UREA NITROGEN 10 mg/dl (7-17); CALCIUM 8.2 mg/dL (8.4-10.2); GFR AFRICAN-AMERICAN > 60; GFR NON-AFRICAN AMERICAN > 60
--- NOTE | 2017-09-16 08:48 | CP.PCM.PN ---
<Pavel Carrasco - Last Filed: 09/16/17 13:58> Subjective - Date & Time of Evaluation Date of Evaluation: 09/16/17 Time of Evaluation: 07:30 - Subjective Subjective: Patient evaluated and examined at bedside in the morning. No acute event overnight. NAD. Strength and energy improving. Tolerating physical therapy and regular diet well. Denies any chest pain, SOB, N/V/D/F/C. Objective - Vital Signs/Intake and Output Vital Signs (last 24 hours): Temp Pulse Resp BP Pulse Ox 98.1 F 64 20 180/78 H 96 09/16/17 08:29 09/16/17 08:29 09/16/17 08:29 09/16/17 08:29 09/16/17 08:29 - Medications Medications: Current Medications Albuterol Sulfate (Albuterol 0.083% Inhal Mariely (2.5 Mg/3 Ml) Ud) 2.5 mg IH Q6H PRN PRN Reason: Shortness of Breath Aspirin (Ecotrin) 81 mg PO DAILY [facility] Last Admin: 09/15/17 08:50 Dose: 81 mg Divalproex Sodium (Depakote Er(Once Daily)) 1,000 mg PO HS [facility] Last Admin: 09/15/17 21:54 Dose: 1,000 mg Divalproex Sodium (Depakote Er(Once Daily)) 500 mg PO HS [facility] Last Admin: 09/15/17 21:54 Dose: 500 mg Enoxaparin Sodium (Lovenox) 40 mg SC HS [facility] PRN Reason: Protocol Last Admin: 09/15/17 21:53 Dose: 40 mg Hydrochlorothiazide (Microzide) 12.5 mg PO DAILY [facility] Last Admin: 09/15/17 08:49 Dose: 12.5 mg Clindamycin Phosphate (Cleocin In Normal Saline) 600 mg in 50 mls @ 50 mls/hr IVPB Q12@0600,1800 [facility] PRN Reason: Protocol Last Admin: 09/16/17 06:26 Dose: 50 mls/hr Losartan Potassium (Cozaar) 100 mg PO DAILY [facility] Olanzapine (Zyprexa) 5 mg PO HS [facility] Last Admin: 09/15/17 21:54 Dose: 5 mg Ondansetron HCl (Zofran Inj) 4 mg IVP Q6 PRN PRN Reason: Nausea/Vomiting Polyethylene Glycol (Miralax) 17 gm PO DAILY [facility] Last Admin: 09/15/17 08:49 Dose: 17 gm - Labs Labs: 09/16/17 05:40 09/16/17 05:40 - Constitutional Appears: Well, Non-toxic, No Acute Distress - Head Exam Head Exam: ATRAUMATIC, NORMAL INSPECTION, NORMOCEPHALIC - Eye Exam Eye Exam: EOMI, Normal appearance Pupil Exam: NORMAL ACCOMODATION, PERRL - ENT Exam ENT Exam: Mucous Membranes Moist - Respiratory Exam Respiratory Exam: Clear to Ausculation Bilateral, NORMAL BREATHING PATTERN - Cardiovascular Exam Cardiovascular Exam: REGULAR RHYTHM, +S1, +S2. absent: Murmur - GI/Abdominal Exam GI & Abdominal Exam: Soft, Normal Bowel Sounds - Extremities Exam Extremities Exam: absent: Tenderness - Psychiatric Exam Psychiatric exam: Normal Affect, Normal Mood - Skin Skin Exam: Dry, Intact, Normal Color, Warm Assessment and Plan - Assessment and Plan (Free Text) Assessment: 77 yo Female with PMHx of HTN, NIDDM, Schizophrenia, Bipolar disorder, Anxiety admitted with general weakness and right upper extremity cellulitis. Plan: Right Upper Extremity Cellulitis -Improved -afebrile -On IV clindamycin Day 5 -ID consult on board, Will continue Abx for 3 more days. -F/U CBC, BMP Generalized Weakness -Improving -Tolerating solid and liquid food PO -Continue Skilled PT Essential Hypertension -chronic -stable -heart healthy diet -Diovan switched to Cozaar 100 mg PO QD. 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 -stable -consistent mod carb diet -HgbA1C on admission 6.6 -no home meds H/O Schizophrenia - Stable -On Zyprexa 5 mg qd -On Haloperidol 75 mg IM Q21 last dose 08/28 H/O Bipolar disorder -Stable -Depakote 500 po qhs ADLS -lives alone -needs assistance with ADLS -social worker aide rinaal DVT prophylaxis -SCDs -Lovenox 40 mg SC <Cecilio Miranda - Last Filed: 09/18/17 06:46> Objective - Vital Signs/Intake and Output Vital Signs (last 24 hours): Temp Pulse Resp BP Pulse Ox 97.9 F 69 20 162/79 H 96 09/17/17 19:41 09/17/17 19:41 09/17/17 19:41 07/19/18 19:41 09/17/17 19:41 - Medications Medications: Current Medications Albuterol Sulfate (Albuterol 0.083% Inhal Mariely (2.5 Mg/3 Ml) Ud) 2.5 mg IH Q6H PRN PRN Reason: Shortness of Breath Aspirin (Ecotrin) 81 mg PO DAILY [facility] Last Admin: 09/17/17 08:36 Dose: 81 mg Divalproex Sodium (Depakote Er(Once Daily)) 1,000 mg PO HS [facility] Last Admin: 09/17/17 22:01 Dose: 1,000 mg Divalproex Sodium (Depakote Er(Once Daily)) 500 mg PO HS [facility] Last Admin: 09/17/17 22:01 Dose: 500 mg Enoxaparin Sodium (Lovenox) 40 mg SC HS [facility] PRN Reason: Protocol Last Admin: 09/17/17 21:57 Dose: 40 mg Haloperidol Decanoate (Haldol Decanoate--Long Acting) 50 mg IM ONCE ONE Stop: 09/18/17 09:01 Hydrochlorothiazide (Microzide) 12.5 mg PO DAILY [facility] Last Admin: 09/17/17 08:36 Dose: 12.5 mg Clindamycin Phosphate (Cleocin) 600 mg in 50 mls @ 50 mls/hr IVPB Q12@0600, 1800 [facility] PRN Reason: Protocol Last Admin: 09/18/17 05:34 Dose: 50 mls/hr Sodium Chloride (Sodium Chloride 0.9%) 1,000 mls @ 170 mls/hr IV .Q5H53M [facility] Stop: 09/18/17 17:47 Last Admin: 09/18/17 05:38 Dose: 170 mls/hr Losartan Potassium (Cozaar) 100 mg PO DAILY [facility] Last Admin: 09/17/17 08:36 Dose: 100 mg Olanzapine (Zyprexa) 5 mg PO HS [facility] Last Admin: 09/17/17 22:01 Dose: 5 mg Ondansetron HCl (Zofran Inj) 4 mg IVP Q6 PRN PRN Reason: Nausea/Vomiting Polyethylene Glycol (Miralax) 17 gm PO DAILY [facility] Last Admin: 09/17/17 08:37 Dose: Not Given - Labs Labs: 09/18/17 05:09/18/17 05:30 Attending/Attestation - Attestation I have personally seen and examined this patient.: Yes I have fully participated in the care of the patient.: Yes I have reviewed all pertinent clinical information, including history, physical exam and plan: Yes
[2017-09-16] MEDS: POLYETHYLENE GLYCOL 3350 17 GM/Dose PACKET PO SCH (09:08)
[2017-09-16] MEDS: Divalproex 500 mg ER (ONCE DAILY formulation) PO SCH ×2 (21:13→21:14)
[2017-09-16] MEDS: Enoxaparin 40 mg Syringe SC SCH (21:16)
[2017-09-17] MEDS: Clindamycin 600mg/50ml NS 600 MG/50 ML BAG IVPB SCH (05:12)
[2017-09-17] MEDS: POLYETHYLENE GLYCOL 3350 17 GM/Dose PACKET PO SCH (08:37)
--- NOTE | 2017-09-17 09:39 | CP.PCM.PN ---
<Pavel Carrasco - Last Filed: 09/17/17 17:51> Subjective - Date & Time of Evaluation Date of Evaluation: 09/17/17 Time of Evaluation: 07:05 - Subjective Subjective: Patient evaluated at bedside this morning. No acute events overnight. NAD. Day 6 of IV abx, Skilled physical therapy continues. Denies any CP, SOB, N/V/D/F/C. Tolerating diet PO. Objective - Vital Signs/Intake and Output Vital Signs (last 24 hours): Temp Pulse Resp BP Pulse Ox 97.3 F L 68 20 138/59 L 98 09/17/17 08:18 09/17/17 08:36 09/17/17 08:18 09/17/17 08:36 09/17/17 08:18 - Medications Medications: Current Medications Albuterol Sulfate (Albuterol 0.083% Inhal Mariely (2.5 Mg/3 Ml) Ud) 2.5 mg IH Q6H PRN PRN Reason: Shortness of Breath Aspirin (Ecotrin) 81 mg PO DAILY [facility] Last Admin: 09/17/17 08:36 Dose: 81 mg Divalproex Sodium (Depakote Er(Once Daily)) 1,000 mg PO HS [facility] Last Admin: 09/16/17 21:13 Dose: 1,000 mg Divalproex Sodium (Depakote Er(Once Daily)) 500 mg PO HS [facility] Last Admin: 09/16/17 21:14 Dose: 500 mg Enoxaparin Sodium (Lovenox) 40 mg SC HS [facility] PRN Reason: Protocol Last Admin: 09/16/17 21:16 Dose: 40 mg Haloperidol Decanoate (Haldol Decanoate--Long Acting) 50 mg IM ONCE ONE Stop: 09/18/17 09:01 Hydrochlorothiazide (Microzide) 12.5 mg PO DAILY [facility] Last Admin: 09/17/17 08:36 Dose: 12.5 mg Clindamycin Phosphate (Cleocin) 600 mg in 50 mls @ 50 mls/hr IVPB Q12@0600, 1800 [facility] PRN Reason: Protocol Losartan Potassium (Cozaar) 100 mg PO DAILY [facility] Last Admin: 09/17/17 08:36 Dose: 100 mg Olanzapine (Zyprexa) 5 mg PO HS [facility] Last Admin: 09/16/17 21:14 Dose: 5 mg Ondansetron HCl (Zofran Inj) 4 mg IVP Q6 PRN PRN Reason: Nausea/Vomiting Polyethylene Glycol (Miralax) 17 gm PO DAILY [facility] Last Admin: 09/17/17 08:37 Dose: Not Given - Labs Labs: 09/16/17 05:40 09/16/17 05:40 - Constitutional Appears: Well, Non-toxic, No Acute Distress - Head Exam Head Exam: ATRAUMATIC, NORMAL INSPECTION, NORMOCEPHALIC - ENT Exam ENT Exam: Mucous Membranes Moist - Respiratory Exam Respiratory Exam: Clear to Ausculation Bilateral, NORMAL BREATHING PATTERN. absent: Rales, Rhonchi, Wheezes - Cardiovascular Exam Cardiovascular Exam: REGULAR RHYTHM, +S1, +S2. absent: Murmur - GI/Abdominal Exam GI & Abdominal Exam: Soft, Normal Bowel Sounds - Neurological Exam Neurological Exam: Alert, Awake, Oriented x3 - Psychiatric Exam Psychiatric exam: Normal Affect, Normal Mood - Skin Skin Exam: Dry, Intact, Normal Color Assessment and Plan - Assessment and Plan (Free Text) Assessment: 77 yo Female with PMHx of HTN, NIDDM, Schizophrenia, Bipolar disorder, Anxiety admitted with general weakness and right upper extremity cellulitis. Plan: Right Upper Extremity Cellulitis -Improved -afebrile -On IV Clindamycin Day 6 -ID consult on board, Will continue Abx for 2 more days. -F/U CBC, BMP Hyponetremia/hypochoremia - Asymptomatic - Last Na+ 124, Cl 88 - Will order NS. - Will repeat bmp - Monitor for acute changes. Generalized Weakness -Improving -Tolerating solid and liquid food PO -Continue Skilled PT Essential Hypertension -chronic -stable -heart healthy diet -Diovan switched to Cozaar 100 mg PO QD. 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 DVT prophylaxis -SCDs -Lovenox 40 mg SC <Man Bliss - Last Filed: 09/22/17 06:50> Objective - Vital Signs/Intake and Output Vital Signs (last 24 hours): Temp Pulse Resp BP Pulse Ox 98.2 F 60 20 142/72 95 09/21/17 20:52 09/21/17 20:52 09/21/17 20:52 09/21/17 20:52 09/21/17 20:52 - Medications Medications: Current Medications Albuterol Sulfate (Albuterol 0.083% Inhal Mariely (2.5 Mg/3 Ml) Ud) 2.5 mg IH Q6H PRN PRN Reason: Shortness of Breath Aspirin (Ecotrin) 81 mg PO DAILY [facility] Last Admin: 09/21/17 09:23 Dose: 81 mg Divalproex Sodium (Depakote Er(Once Daily)) 1,000 mg PO HS [facility] Last Admin: 09/17/17 22:01 Dose: 1,000 mg Divalproex Sodium (Depakote Er(Once Daily)) 500 mg PO HS [facility] Last Admin: 09/17/17 22:01 Dose: 500 mg Enoxaparin Sodium (Lovenox) 40 mg SC DAILY [facility] PRN Reason: Protocol Last Admin: 09/21/17 09:23 Dose: 40 mg Hydrochlorothiazide (Microzide) 12.5 mg PO DAILY [facility] Last Admin: 09/17/17 08:36 Dose: 12.5 mg Losartan Potassium (Cozaar) 100 mg PO DAILY [facility] Last Admin: 09/17/17 08:36 Dose: 100 mg Olanzapine (Zyprexa) 5 mg PO HS [facility] Last Admin: 09/21/17 21:05 Dose: 5 mg Ondansetron HCl (Zofran Inj) 4 mg IVP Q6 PRN PRN Reason: Nausea/Vomiting Polyethylene Glycol (Miralax) 17 gm PO DAILY [facility] Last Admin: 09/17/17 08:37 Dose: Not Given Sodium Chloride (Sodium Chloride Tab) 1 gm PO DAILY [facility] Last Admin: 09/21/17 12:09 Dose: 1 gm - Labs Labs: 09/18/17 05:30 09/20/17 10:00 Attending/Attestation - Attestation I have personally seen and examined this patient.: Yes I have fully participated in the care of the patient.: Yes I have reviewed all pertinent clinical information, including history, physical exam and plan: Yes
[2017-09-17] MEDS ORDERED: Sodium Chloride 3% 50 ML IV ONE (10:00)
[2017-09-17] MEDS: Clindamycin 600mg/50ml D5W 600 MG/50 ML VIAL IVPB SCH (17:00)
[2017-09-17] MEDS ORDERED: Sodium Chloride 0.9% 1,000 ML IV SCH (18:00)
[2017-09-17] MEDS: Enoxaparin 40 mg Syringe SC SCH (21:57)
[2017-09-17] MEDS: Divalproex 500 mg ER (ONCE DAILY formulation) PO SCH ×2 (22:01)
[2017-09-17] MEDS: Sodium Chloride 0.9% 1,000 ML IV SCH (22:04)
[2017-09-18] MEDS: Clindamycin 600mg/50ml D5W 600 MG/50 ML VIAL IVPB SCH ×2 (05:34→17:03)
[2017-09-18] MEDS: Sodium Chloride 0.9% 1,000 ML IV SCH ×2 (05:38→09:23)
[2017-09-18 06:02] LABS: HEMOGLOBIN 9.8 g/dL (12.0-16.0); MEAN CORPUSCULAR HEMOGLOBIN 31.8 pg (27.0-31.0); MEAN CORPUSCULAR HGB CONC 34.9 g/dL (33.0-37.0); RBC 3.08 Mil/uL (3.80-5.20); RED CELL DISTRIBUTION WIDTH 13.6 % (11.5-14.5); WHITE BLOOD COUNT 5.3 K/uL (4.8-10.8)
[2017-09-18 06:24] LABS: BLOOD UREA NITROGEN 12 mg/dl (7-17); CALCIUM 8.1 mg/dL (8.4-10.2); GFR AFRICAN-AMERICAN > 60; GFR NON-AFRICAN AMERICAN > 60
--- NOTE | 2017-09-18 10:55 | CP.PCM.PN ---
<Pavel Carrasco - Last Filed: 09/18/17 15:48> Subjective - Date & Time of Evaluation Date of Evaluation: 09/18/17 Time of Evaluation: 07:15 - Subjective Subjective: Patient evaluated at bedside this morning. No acute events overnight. NAD. Day 7 of IV abx, Skilled physical therapy continues. Denies any CP, SOB, N/V/D/F/C. Tolerating diet PO. Dr. Cunningham to F/U for hyponatremia. Objective - Vital Signs/Intake and Output Vital Signs (last 24 hours): Temp Pulse Resp BP Pulse Ox 97.5 F L 60 20 159/77 H 97 09/18/17 08:37 09/18/17 08:37 09/18/17 08:37 09/18/17 08:37 09/18/17 08:37 - Medications Medications: Current Medications Albuterol Sulfate (Albuterol 0.083% Inhal Mariely (2.5 Mg/3 Ml) Ud) 2.5 mg IH Q6H PRN PRN Reason: Shortness of Breath Aspirin (Ecotrin) 81 mg PO DAILY [facility] Last Admin: 09/18/17 08:23 Dose: 81 mg Divalproex Sodium (Depakote Er(Once Daily)) 1,000 mg PO HS [facility] Last Admin: 09/17/17 22:01 Dose: 1,000 mg Divalproex Sodium (Depakote Er(Once Daily)) 500 mg PO HS [facility] Last Admin: 09/17/17 22:01 Dose: 500 mg Enoxaparin Sodium (Lovenox) 40 mg SC HS [facility] PRN Reason: Protocol Last Admin: 09/17/17 21:57 Dose: 40 mg Haloperidol Decanoate (Haldol Decanoate--Long Acting) 50 mg IM ONCE ONE Stop: 09/18/17 17:01 Hydrochlorothiazide (Microzide) 12.5 mg PO DAILY [facility] Last Admin: 09/17/17 08:36 Dose: 12.5 mg Clindamycin Phosphate (Cleocin) 600 mg in 50 mls @ 50 mls/hr IVPB Q12@0600, 1800 [facility] PRN Reason: Protocol Last Admin: 09/18/17 05:34 Dose: 50 mls/hr Losartan Potassium (Cozaar) 100 mg PO DAILY [facility] Last Admin: 09/17/17 08:36 Dose: 100 mg Olanzapine (Zyprexa) 5 mg PO HS [facility] Last Admin: 09/17/17 22:01 Dose: 5 mg Ondansetron HCl (Zofran Inj) 4 mg IVP Q6 PRN PRN Reason: Nausea/Vomiting Polyethylene Glycol (Miralax) 17 gm PO DAILY [facility] Last Admin: 09/17/17 08:37 Dose: Not Given - Labs Labs: 09/18/17 05:30 09/18/17 05:30 - Constitutional Appears: Well, Non-toxic, No Acute Distress - Head Exam Head Exam: ATRAUMATIC, NORMAL INSPECTION, NORMOCEPHALIC - Eye Exam Eye Exam: EOMI, Normal appearance Pupil Exam: NORMAL ACCOMODATION, PERRL - ENT Exam ENT Exam: Mucous Membranes Moist, Normal Exam - Neck Exam Neck Exam: Full ROM - Respiratory Exam Respiratory Exam: Clear to Ausculation Bilateral, NORMAL BREATHING PATTERN. absent: Rales, Rhonchi, Wheezes - Cardiovascular Exam Cardiovascular Exam: REGULAR RHYTHM, +S1, +S2. absent: Murmur - GI/Abdominal Exam GI & Abdominal Exam: Soft, Normal Bowel Sounds - Extremities Exam Extremities Exam: absent: Calf Tenderness, Tenderness - Back Exam Back Exam: absent: CVA tenderness (L), CVA tenderness (R) - Neurological Exam Neurological Exam: Alert, Awake, Oriented x3 - Psychiatric Exam Psychiatric exam: Normal Affect, Normal Mood. absent: Anxious, Depressed - Skin Skin Exam: Dry, Intact, Normal Color, Warm. absent: Pallor Assessment and Plan - Assessment and Plan (Free Text) Assessment: 77 yo Female with PMHx of HTN, NIDDM, Schizophrenia, Bipolar disorder, Anxiety admitted with general weakness and right upper extremity cellulitis. Plan: Right Upper Extremity Cellulitis -Improved -afebrile -On IV Clindamycin Day 7 -ID consult on board, Will continue Abx for 1 more day. -F/U CBC, BMP Hyponetremia/hypochoremia - Asymptomatic - Last Na+ 122(Previous Na+ 120 and 124). Cl 88. Urine Osmolarity-318, U. 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 - As per Dr. Cunningham: To give Samsca 15 mg stat dose now. We have to monitor serum sodium not to rise more than about 10 mEq in the next 24 hours - BMP 8.00 pm tonight and tomorrow. Generalized Weakness -Improving -Tolerating solid and liquid food PO -Continue Skilled PT H/O Schizophrenia -Stable -On Zyprexa 5 mg qd -On Haloperidol 75 mg IM Q21 last dose 08/28 -Psych consult for medication adjustment. H/O Bipolar disorder -Stable -Depakote 500 po qhs -Psych consult for medication adjustment. Essential Hypertension -chronic -stable -heart healthy diet -Cozaar 100 mg PO QD. 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 DVT prophylaxis -SCDs -Lovenox 40 mg SC <Cecilio Miranda - Last Filed: 09/21/17 07:00> Objective - Vital Signs/Intake and Output Vital Signs (last 24 hours): Temp Pulse Resp BP Pulse Ox 98.1 F 70 20 146/71 96 09/20/17 20:00 09/20/17 20:00 09/20/17 20:00 09/20/17 20:00 09/20/17 20:00 - Medications Medications: Current Medications Albuterol Sulfate (Albuterol 0.083% Inhal Mariely (2.5 Mg/3 Ml) Ud) 2.5 mg IH Q6H PRN PRN Reason: Shortness of Breath Aspirin (Ecotrin) 81 mg PO DAILY [facility] Last Admin: 09/20/17 09:09 Dose: 81 mg Divalproex Sodium (Depakote Er(Once Daily)) 1,000 mg PO HS [facility] Last Admin: 09/17/17 22:01 Dose: 1,000 mg Divalproex Sodium (Depakote Er(Once Daily)) 500 mg PO HS [facility] Last Admin: 09/17/17 22:01 Dose: 500 mg Enoxaparin Sodium (Lovenox) 40 mg SC DAILY [facility] PRN Reason: Protocol Last Admin: 09/20/17 09:09 Dose: 40 mg Hydrochlorothiazide (Microzide) 12.5 mg PO DAILY [facility] Last Admin: 09/17/17 08:36 Dose: 12.5 mg Losartan Potassium (Cozaar) 100 mg PO DAILY [facility] Last Admin: 09/17/17 08:36 Dose: 100 mg Olanzapine (Zyprexa) 5 mg PO HS [facility] Last Admin: 09/20/17 21:56 Dose: 5 mg Ondansetron HCl (Zofran Inj) 4 mg IVP Q6 PRN PRN Reason: Nausea/Vomiting Polyethylene Glycol (Miralax) 17 gm PO DAILY [facility] Last Admin: 09/17/17 08:37 Dose: Not Given - Labs Labs: 09/18/17 05:30 09/20/17 10:00 Attending/Attestation - Attestation I have personally seen and examined this patient.: Yes I have fully participated in the care of the patient.: Yes I have reviewed all pertinent clinical information, including history, physical exam and plan: Yes
[2017-09-18] MEDS ORDERED: Tolvaptan 15 MG TAB PO ONE (13:39)
--- NOTE | 2017-09-18 13:49 | CP.PCM.CON ---
History of Present Illness - History of Present Illness History of Present Illness: Patient however is 77 years of age female was admitted for treatment of cellulitis of the upper extremity and deconditioned debility.. Patient to receive antibiotics and I was called for abnormal electrolytes mainly hyponatremia. 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 PMHx of HTN, NIDDM, Schizophrenia, Bipolar disorder, Anxiety Patient on multiple medication for the psychiatric diagnosis as noted above No nausea no vomiting no diarrhea Social history not contributory Review of Systems - Constitutional Constitutional: absent: Chills - Cardiovascular Cardiovascular: absent: Acrocyanosis, Chest Pain, Orthopnea - Respiratory Respiratory: absent: Cough, Hemoptysis - Gastrointestinal Gastrointestinal: absent: Abdominal Pain, Coffee Ground Emesis - Genitourinary Genitourinary: Nocturia - Musculoskeletal Musculoskeletal: Muscle Weakness. absent: Joint Swelling - Integumentary Integumentary: absent: Acne - Neurological Neurological: absent: Confusion, Focal Weakness, Paresthesias - Psychiatric Psychiatric: Anxiety. absent: Confusion - Endocrine Endocrine: Fatigue - Hematologic/Lymphatic Hematologic: absent: Easy Bleeding Past Patient History - Infectious Disease Hx of Infectious Diseases: None - Past Medical History & Family History Past Medical History?: Yes - Past Social History Smoking Status: Never Smoked - CARDIAC Hx Hypercholesterolemia: Yes Hx Hypertension: Yes - PULMONARY Hx Tuberculosis: No - NEUROLOGICAL Hx Seizures: No - HEENT Hx HEENT Problems: No - RENAL Hx Chronic Kidney Disease: No - ENDOCRINE/METABOLIC Hx Diabetes Mellitus Type 2: Yes - HEMATOLOGICAL/ONCOLOGICAL Hx AIDS: No Hx Human Immunodeficiency Virus (HIV): No - INTEGUMENTARY Hx Dermatological Problems: No - MUSCULOSKELETAL/RHEUMATOLOGICAL Hx Falls: Yes ("2 x last mo") - GASTROINTESTINAL Hx Gastrointestinal Disorders: Yes Hx Constipation: Yes - GENITOURINARY/GYNECOLOGICAL Hx Sexually Transmitted Disorders: No - PSYCHIATRIC Hx Anxiety: Yes Hx Bipolar Disorder: Yes Hx Schizophrenia: Yes Hx Substance Use: No - SURGICAL HISTORY Hx Appendectomy: Yes - ANESTHESIA Hx Anesthesia: Yes Hx Anesthesia Reactions: No Hx Malignant Hyperthermia: No Meds Allergies/Adverse Reactions: Allergies Allergy/AdvReac Type Severity Reaction Status Date / Time No Known Allergies Allergy Verified 07/28/17 09:10 - Medications Medications: Current Medications Albuterol Sulfate (Albuterol 0.083% Inhal Mariely (2.5 Mg/3 Ml) Ud) 2.5 mg IH Q6H PRN PRN Reason: Shortness of Breath Aspirin (Ecotrin) 81 mg PO DAILY [facility] Last Admin: 09/18/17 08:23 Dose: 81 mg Divalproex Sodium (Depakote Er(Once Daily)) 1,000 mg PO HS [facility] Last Admin: 09/17/17 22:01 Dose: 1,000 mg Divalproex Sodium (Depakote Er(Once Daily)) 500 mg PO HS [facility] Last Admin: 09/17/17 22:01 Dose: 500 mg Enoxaparin Sodium (Lovenox) 40 mg SC HS [facility] PRN Reason: Protocol Last Admin: 09/17/17 21:57 Dose: 40 mg Haloperidol Decanoate (Haldol Decanoate--Long Acting) 50 mg IM ONCE ONE Stop: 09/18/17 17:01 Hydrochlorothiazide (Microzide) 12.5 mg PO DAILY [facility] Last Admin: 09/17/17 08:36 Dose: 12.5 mg Clindamycin Phosphate (Cleocin) 600 mg in 50 mls @ 50 mls/hr IVPB Q12@0600, 1800 [facility] PRN Reason: Protocol Last Admin: 09/18/17 05:34 Dose: 50 mls/hr Losartan Potassium (Cozaar) 100 mg PO DAILY [facility] Last Admin: 09/17/17 08:36 Dose: 100 mg Olanzapine (Zyprexa) 5 mg PO [facility] Last Admin: 09/17/17 22:01 Dose: 5 mg Ondansetron HCl (Zofran Inj) 4 mg IVP Q6 PRN PRN Reason: Nausea/Vomiting Polyethylene Glycol (Miralax) 17 gm PO DAILY [facility] Last Admin: 09/17/17 08:37 Dose: Not Given Tolvaptan (Samsca) 15 mg PO ONCE ONE Stop: 09/18/17 13:40 Physical Exam - Constitutional Appears: No Acute Distress - Eye Exam Eye Exam: Conjunctival injection - ENT Exam ENT Exam: Mucous Membranes Moist - Neck Exam Neck exam: Negative for: Lymphadenopathy - Respiratory Exam Respiratory Exam: NORMAL BREATHING PATTERN - Cardiovascular Exam Cardiovascular Exam: absent: Gallop, JVD, Rubs - GI/Abdominal Exam GI & Abdominal Exam: absent: Guarding - Extremities Exam Extremities exam: Negative for: calf tenderness - Back Exam Back exam: absent: CVA tenderness (L), CVA tenderness (R) - Neurological Exam Neurological exam: Altered - Skin Skin Exam: Normal Color Results - Vital Signs Recent Vital Signs: Last Vital Signs Temp 97.5 F L 09/18/17 08:37 Pulse 60 09/18/17 08:37 Resp 20 09/18/17 08:37 BP 159/77 H 09/18/17 08:37 Pulse Ox 97 09/18/17 08:37 - Labs Result Diagrams: 09/18/17 05:30 09/18/17 05:30 Labs: Laboratory Results - last 24 hr 09/17/17 09/18/17 09/18/17 20:05 01:30 05:30 WBC 5.3 RBC 3.08 L Hgb 9.8 L Hct 28.0 L MCV 91.0 MCH 31.8 H MCHC 34.9 RDW 13.6 Plt Count 314 Sodium 120 L* Potassium Chloride Carbon Dioxide Anion Gap BUN Creatinine Est GFR ( Amer) Est GFR (Non-Af Amer) Random Glucose Serum Osmolality Calcium Urine Osmolality 318 Ur Random Sodium 77 Ur Random Potassium 25.4 09/18/17 09/18/17 05:30 05:30 WBC RBC Hgb Hct MCV MCH MCHC RDW Plt Count Sodium 122 L Potassium 3.8 Chloride 87 L Carbon Dioxide 28 Anion Gap 11 BUN 12 Creatinine 0.7 Est GFR ( Amer) > 60 Est GFR (Non-Af Amer) > 60 Random Glucose 109 H Serum Osmolality 263 L Calcium 8.1 L Urine Osmolality Ur Random Sodium Ur Random Potassium Assessment & Plan (1) Cellulitis of right upper extremity Status: Acute (2) Generalized weakness Status: Acute (3) Hyponatremia Assessment and Plan: Patient with hyponatremia serum sodium in the range of 122 with the urine finding consistent with SIADH. Etiology of SIADH could be possibly related to multiple psych medication that she is receiving In addition to the PMHx of HTN, NIDDM, Schizophrenia, Bipolar disorder, Anxiety The plan To give Samsca 15 mg stat dose now. We have to monitor serum sodium not to rise more than about 10 mEq in the next 24 hours. Therefore I recommend to do BMP around 8 PM tonight and also tomorrow morning Status: Acute
--- NOTE | 2017-09-18 16:47 | CP.PCM.CON ---
History of Present Illness - History of Present Illness History of Present Illness: consult requested for recommendations in reference to psychotropics as pt has hyponatremia 77 yo female w/ h/o schizoaffective disorder presents to ED complaining of weakness, lack of energy, poor appetite , pt was found to have hyponatremia, pt currently has been treated by olanzapine, depakote and haldol decanoate pt on evaluation, cooperative good eye contact oriented to person and partialy to place reported mood fine , denied any current suicidal or homicidal ideation , denied perceptual disturbances, no episodes of behavior disturbances reported by staff Past Patient History - Infectious Disease Hx of Infectious Diseases: None - Past Medical History & Family History Past Medical History?: Yes - Past Social History Smoking Status: Never Smoked - CARDIAC Hx Hypercholesterolemia: Yes Hx Hypertension: Yes - PULMONARY Hx Tuberculosis: No - NEUROLOGICAL Hx Seizures: No - HEENT Hx HEENT Problems: No - RENAL Hx Chronic Kidney Disease: No - ENDOCRINE/METABOLIC Hx Diabetes Mellitus Type 2: Yes - HEMATOLOGICAL/ONCOLOGICAL Hx AIDS: No Hx Human Immunodeficiency Virus (HIV): No - INTEGUMENTARY Hx Dermatological Problems: No - MUSCULOSKELETAL/RHEUMATOLOGICAL Hx Falls: Yes ("2 x last mo") - GASTROINTESTINAL Hx Gastrointestinal Disorders: Yes Hx Constipation: Yes - GENITOURINARY/GYNECOLOGICAL Hx Sexually Transmitted Disorders: No - PSYCHIATRIC Hx Anxiety: Yes Hx Bipolar Disorder: Yes Hx Schizophrenia: Yes Hx Substance Use: No - SURGICAL HISTORY Hx Appendectomy: Yes - ANESTHESIA Hx Anesthesia: Yes Hx Anesthesia Reactions: No Hx Malignant Hyperthermia: No Meds Allergies/Adverse Reactions: Allergies Allergy/AdvReac Type Severity Reaction Status Date / Time No Known Allergies Allergy Verified 07/28/17 09:10 - Medications Medications: Current Medications Albuterol Sulfate (Albuterol 0.083% Inhal Mariely (2.5 Mg/3 Ml) Ud) 2.5 mg IH Q6H PRN PRN Reason: Shortness of Breath Aspirin (Ecotrin) 81 mg PO DAILY [facility] Last Admin: 09/18/17 08:23 Dose: 81 mg Divalproex Sodium (Depakote Er(Once Daily)) 1,000 mg PO HS [facility] Last Admin: 09/17/17 22:01 Dose: 1,000 mg Divalproex Sodium (Depakote Er(Once Daily)) 500 mg PO HS [facility] Last Admin: 09/17/17 22:01 Dose: 500 mg Enoxaparin Sodium (Lovenox) 40 mg SC HS [facility] PRN Reason: Protocol Last Admin: 09/17/17 21:57 Dose: 40 mg Haloperidol Decanoate (Haldol Decanoate--Long Acting) 50 mg IM ONCE ONE Stop: 09/18/17 17:01 Hydrochlorothiazide (Microzide) 12.5 mg PO DAILY [facility] Last Admin: 09/17/17 08:36 Dose: 12.5 mg Clindamycin Phosphate (Cleocin) 600 mg in 50 mls @ 50 mls/hr IVPB Q12@0600, 1800 [facility] PRN Reason: Protocol Last Admin: 09/18/17 05:34 Dose: 50 mls/hr Losartan Potassium (Cozaar) 100 mg PO DAILY [facility] Last Admin: 09/17/17 08:36 Dose: 100 mg Olanzapine (Zyprexa) 5 mg PO HS [facility] Last Admin: 09/17/17 22:01 Dose: 5 mg Ondansetron HCl (Zofran Inj) 4 mg IVP Q6 PRN PRN Reason: Nausea/Vomiting Polyethylene Glycol (Miralax) 17 gm PO DAILY [facility] Last Admin: 09/17/17 08:37 Dose: Not Given Results - Vital Signs Recent Vital Signs: Last Vital Signs Temp 97.5 F L 09/18/17 08:37 Pulse 60 09/18/17 08:37 Resp 20 09/18/17 08:37 BP 159/77 H 09/18/17 08:37 Pulse Ox 97 09/18/17 08:37 - Labs Result Diagrams: 09/18/17 05:30 09/18/17 05:30 Labs: Laboratory Results - last 24 hr 09/17/17 09/18/17 09/18/17 20:05 01:30 05:30 WBC 5.3 RBC 3.08 L Hgb 9.8 L Hct 28.0 L MCV 91.0 MCH 31.8 H MCHC 34.9 RDW 13.6 Plt Count 314 Sodium 120 L* Potassium Chloride Carbon Dioxide Anion Gap BUN Creatinine Est GFR ( Amer) Est GFR (Non-Af Amer) Random Glucose Serum Osmolality Calcium Urine Osmolality 318 Ur Random Sodium 77 Ur Random Potassium 25.4 09/18/17 09/18/17 05:30 05:30 WBC RBC Hgb Hct MCV MCH MCHC RDW Plt Count Sodium 122 L Potassium 3.8 Chloride 87 L Carbon Dioxide 28 Anion Gap 11 BUN 12 Creatinine 0.7 Est GFR ( Amer) > 60 Est GFR (Non-Af Amer) > 60 Random Glucose 109 H Serum Osmolality 263 L Calcium 8.1 L Urine Osmolality Ur Random Sodium Ur Random Potassium Assessment & Plan - Assessment and Plan (Free Text) Assessment: schizoaffective disorder major neurocognitive disorder Plan: continuje to hold depakote as it may increase hyponatremia continue with olanzapine and haldol decanoate
[2017-09-18] MEDS: Enoxaparin 40 mg Syringe SC SCH (21:08)
[2017-09-18 21:15] LABS: BLOOD UREA NITROGEN 13 mg/dl (7-17); CALCIUM 8.7 mg/dL (8.4-10.2); GFR AFRICAN-AMERICAN > 60; GFR NON-AFRICAN AMERICAN > 60
[2017-09-19] MEDS: Clindamycin 600mg/50ml D5W 600 MG/50 ML VIAL IVPB SCH ×2 (05:28→17:02)
[2017-09-19 06:41] LABS: BLOOD UREA NITROGEN 15 mg/dl (7-17); CALCIUM 8.6 mg/dL (8.4-10.2); GFR AFRICAN-AMERICAN > 60; GFR NON-AFRICAN AMERICAN 54
--- NOTE | 2017-09-19 09:51 | CP.PCM.PN ---
Subjective - Date & Time of Evaluation Date of Evaluation: 09/19/17 Time of Evaluation: 07:30 - Subjective Subjective: Patient evaluated and examined at bedside in AM. NAD. No acute event overnight. Patient evaluated by manager orange and psych yesterday. Depakote on hold. Tolvaptan given yesterday. Denies confusion, dizziness, headache, SOB, CP, N/V/ D. Objective - Vital Signs/Intake and Output Vital Signs (last 24 hours): Temp Pulse Resp BP Pulse Ox 97.7 F 61 20 142/78 98 09/19/17 08:17 09/19/17 08:17 09/19/17 08:17 09/19/17 08:17 09/19/17 08:17 - Medications Medications: Current Medications Albuterol Sulfate (Albuterol 0.083% Inhal Mariely (2.5 Mg/3 Ml) Ud) 2.5 mg IH Q6H PRN PRN Reason: Shortness of Breath Aspirin (Ecotrin) 81 mg PO DAILY [facility] Last Admin: 09/19/17 08:36 Dose: 81 mg Divalproex Sodium (Depakote Er(Once Daily)) 1,000 mg PO HS [facility] Last Admin: 09/17/17 22:01 Dose: 1,000 mg Divalproex Sodium (Depakote Er(Once Daily)) 500 mg PO HS [facility] Last Admin: 09/17/17 22:01 Dose: 500 mg Enoxaparin Sodium (Lovenox) 40 mg SC DAILY [facility] PRN Reason: Protocol Hydrochlorothiazide (Microzide) 12.5 mg PO DAILY [facility] Last Admin: 09/17/17 08:36 Dose: 12.5 mg Clindamycin Phosphate (Cleocin) 600 mg in 50 mls @ 50 mls/hr IVPB Q12@0600, 1800 [facility] PRN Reason: Protocol Last Admin: 09/19/17 05:28 Dose: 50 mls/hr Losartan Potassium (Cozaar) 100 mg PO DAILY [facility] Last Admin: 09/17/17 08:36 Dose: 100 mg Olanzapine (Zyprexa) 5 mg PO HS [facility] Last Admin: 09/18/17 21:07 Dose: 5 mg Ondansetron HCl (Zofran Inj) 4 mg IVP Q6 PRN PRN Reason: Nausea/Vomiting Polyethylene Glycol (Miralax) 17 gm PO DAILY [facility] Last Admin: 09/17/17 08:37 Dose: Not Given - Labs Labs: 09/18/17 05:30 09/19/17 05:30 - Constitutional Appears: Well, Non-toxic, No Acute Distress - Head Exam Head Exam: ATRAUMATIC, NORMAL INSPECTION, NORMOCEPHALIC - Eye Exam Eye Exam: EOMI, Normal appearance, PERRL Pupil Exam: NORMAL ACCOMODATION, PERRL - ENT Exam ENT Exam: Mucous Membranes Moist - Neck Exam Neck Exam: Full ROM - Respiratory Exam Respiratory Exam: Clear to Ausculation Bilateral, NORMAL BREATHING PATTERN. absent: Rales, Rhonchi, Wheezes, Respiratory Distress - Cardiovascular Exam Cardiovascular Exam: REGULAR RHYTHM, +S1, +S2. absent: Murmur - GI/Abdominal Exam GI & Abdominal Exam: Soft, Normal Bowel Sounds - Neurological Exam Neurological Exam: Alert, Awake, Oriented x3 - Psychiatric Exam Psychiatric exam: Normal Affect, Normal Mood. absent: Agitated, Anxious, Depressed - Skin Skin Exam: Dry, Intact, Normal Color Assessment and Plan - Assessment and Plan (Free Text) Assessment: 77 yo Female with PMHx of HTN, NIDDM, Schizophrenia, Bipolar disorder, Anxiety admitted with general weakness and right upper extremity cellulitis. Plan: Hyponetremia/hypochoremia - Asymptomatic - Na+ Improving, Last Na+ 129(Previous Na+ 122,120 and 124). Cl 88. Urine Osmolarity-318, U. Random Sodium-77, U Random Potassium-25.4 - Tolvaptan 15 mg given yesterday. 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 - BMP tomorrow. Right Upper Extremity Cellulitis -Resolved -afebrile -On IV Clindamycin Day 8 -ID consult on board, Abx will be completed today -F/U CBC, BMP Generalized Weakness -Improving -Tolerating regular diet PO -Continue skilled PT H/O Schizophrenia -Stable -On Zyprexa 5 mg qd -On Haloperidol 75 mg IM Q21 last dose 08/28 -Psych consult on board H/O Bipolar disorder -Stable -Hold Depakote 500 po qhs -Psych consult on board Essential Hypertension -chronic -heart healthy diet -Cozaar 100 mg PO QD. 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
[2017-09-19] MEDS: Enoxaparin 40 mg Syringe SC SCH (12:14)
--- NOTE | 2017-09-19 16:30 | CP.PCM.PN ---
Subjective - Date & Time of Evaluation Date of Evaluation: 09/19/17 Time of Evaluation: 16:29 - Subjective Subjective: renal follow up note no events overnight vitals reviewed heent normal op moist no jvd s1s2 present no resp distress abd soft ao times 3 skin normal cooperative A&P hyponatremia/siadh/schizoaffective dis/htn sodium 129 post samsca dose monitor for now check a bmp tomorrow hold diuretics Objective - Vital Signs/Intake and Output Vital Signs (last 24 hours): Temp Pulse Resp BP Pulse Ox 97.5 F L 64 20 142/63 98 09/19/17 16:18 09/19/17 16:18 09/19/17 16:18 09/19/17 16:18 09/19/17 16:18 - Medications Medications: Current Medications Albuterol Sulfate (Albuterol 0.083% Inhal Mariely (2.5 Mg/3 Ml) Ud) 2.5 mg IH Q6H PRN PRN Reason: Shortness of Breath Aspirin (Ecotrin) 81 mg PO DAILY [facility] Last Admin: 09/19/17 08:36 Dose: 81 mg Divalproex Sodium (Depakote Er(Once Daily)) 1,000 mg PO HS [facility] Last Admin: 09/17/17 22:01 Dose: 1,000 mg Divalproex Sodium (Depakote Er(Once Daily)) 500 mg PO HS [facility] Last Admin: 09/17/17 22:01 Dose: 500 mg Enoxaparin Sodium (Lovenox) 40 mg SC DAILY [facility] PRN Reason: Protocol Last Admin: 09/19/17 12:14 Dose: 40 mg Hydrochlorothiazide (Microzide) 12.5 mg PO DAILY [facility] Last Admin: 09/17/17 08:36 Dose: 12.5 mg Clindamycin Phosphate (Cleocin) 600 mg in 50 mls @ 50 mls/hr IVPB Q12@0600, 1800 [facility] PRN Reason: Protocol Last Admin: 09/19/17 05:28 Dose: 50 mls/hr Losartan Potassium (Cozaar) 100 mg PO DAILY [facility] Last Admin: 09/17/17 08:36 Dose: 100 mg Olanzapine (Zyprexa) 5 mg PO HS [facility] Last Admin: 09/18/17 21:07 Dose: 5 mg Ondansetron HCl (Zofran Inj) 4 mg IVP Q6 PRN PRN Reason: Nausea/Vomiting Polyethylene Glycol (Miralax) 17 gm PO DAILY [facility] Last Admin: 09/17/17 08:37 Dose: Not Given - Labs Labs: 09/18/17 05:30 09/19/17 05:30
--- NOTE | 2017-09-20 08:23 | CP.PCM.PN ---
Subjective - Date & Time of Evaluation Date of Evaluation: 09/20/17 Time of Evaluation: 08:40 - Subjective Subjective: Patient seen and examined this morning at bedside. There are no acute events overnight, NAD. Patient sitting up and eating breakfast. Patient denies headaches, dizziness, chest pain, SOB, abdominal pain, nausea, vomiting, diarrhea, dysuria, or fever. Objective - Vital Signs/Intake and Output Vital Signs (last 24 hours): Temp Pulse Resp BP Pulse Ox 98.2 F 63 20 132/75 98 09/19/17 20:04 09/19/17 20:04 09/19/17 20:04 09/19/17 20:04 09/19/17 20:04 - Medications Medications: Current Medications Albuterol Sulfate (Albuterol 0.083% Inhal Mariely (2.5 Mg/3 Ml) Ud) 2.5 mg IH Q6H PRN PRN Reason: Shortness of Breath Aspirin (Ecotrin) 81 mg PO DAILY [facility] Last Admin: 09/19/17 08:36 Dose: 81 mg Divalproex Sodium (Depakote Er(Once Daily)) 1,000 mg PO [facility] Last Admin: 09/17/17 22:01 Dose: 1,000 mg Divalproex Sodium (Depakote Er(Once Daily)) 500 mg PO HS [facility] Last Admin: 09/17/17 22:01 Dose: 500 mg Enoxaparin Sodium (Lovenox) 40 mg SC DAILY [facility] PRN Reason: Protocol Last Admin: 09/19/17 12:14 Dose: 40 mg Hydrochlorothiazide (Microzide) 12.5 mg PO DAILY [facility] Last Admin: 09/17/17 08:36 Dose: 12.5 mg Losartan Potassium (Cozaar) 100 mg PO DAILY [facility] Last Admin: 09/17/17 08:36 Dose: 100 mg Olanzapine (Zyprexa) 5 mg PO [facility] Last Admin: 09/19/17 21:14 Dose: 5 mg Ondansetron HCl (Zofran Inj) 4 mg IVP Q6 PRN PRN Reason: Nausea/Vomiting Polyethylene Glycol (Miralax) 17 gm PO DAILY [facility] Last Admin: 09/17/17 08:37 Dose: Not Given - Labs Labs: 09/18/17 05:30 09/19/17 05:30 - Constitutional Appears: Non-toxic, No Acute Distress - Head Exam Head Exam: ATRAUMATIC, NORMAL INSPECTION, NORMOCEPHALIC - Eye Exam Eye Exam: Normal appearance - ENT Exam ENT Exam: Mucous Membranes Moist - Neck Exam Neck Exam: Full ROM. absent: Tenderness - Respiratory Exam Respiratory Exam: Clear to Ausculation Bilateral. absent: Accessory Muscle Use , Decreased Breath Sounds, Rales, Rhonchi, Wheezes, Respiratory Distress - Cardiovascular Exam Cardiovascular Exam: REGULAR RHYTHM, RRR, +S1, +S2. absent: Tachycardia - GI/Abdominal Exam GI & Abdominal Exam: Soft, Normal Bowel Sounds. 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 Right Upper Extremity Cellulitis - Resolved - afebrile - Clindamycin course completed Generalized Weakness - Improving - Tolerating regular diet PO - Continue skilled PT H/O Schizophrenia - Stable - On Zyprexa 5 mg qd - On Haloperidol 75 mg IM Q21 last dose 08/28 - Psych recommendations appreciated H/O Bipolar disorder - Stable - Hold Depakote 500 po qhs - Psych recommendations appreciated Essential Hypertension - chronic - heart healthy diet - Cozaar 100 mg PO QD. - Aspirin 81 po qd Non Insulin Dependent Diabetes Mellitus type 2 - stable - consistent mod carb diet - HgbA1C on admission 6.6 - no home meds ADLS - lives alone - needs assistance with ADLS - social media strategist eval Prophylactic measures - DVT: SCDs, Lovenox 40 mg SC
[2017-09-20] MEDS: Enoxaparin 40 mg Syringe SC SCH (09:09)
[2017-09-20 10:35] LABS: BLOOD UREA NITROGEN 12 mg/dl (7-17); CALCIUM 8.7 mg/dL (8.4-10.2); GFR AFRICAN-AMERICAN > 60; GFR NON-AFRICAN AMERICAN > 60
--- NOTE | 2017-09-21 08:26 | CP.PCM.PN ---
<Pavel Carrasco - Last Filed: 09/21/17 13:48> Subjective - Date & Time of Evaluation Date of Evaluation: 09/21/17 Time of Evaluation: 07:35 - Subjective Subjective: Patient evaluated and examined at bedside in the morning. NAD, No acute events overnight. Sodium improving(last 132). Patient is alert, awake and oriented x 3. Denies focal weakness, headache, dizziness, CP, SOB, N/V/D/C, fever or chills. spice room worker to be following up with patient. Objective - Vital Signs/Intake and Output Vital Signs (last 24 hours): Temp Pulse Resp BP Pulse Ox 97.9 F 69 20 133/63 94 L 09/21/17 08:18 09/21/17 08:18 09/21/17 08:18 09/21/17 08:18 09/21/17 08:18 - Medications Medications: Current Medications Albuterol Sulfate (Albuterol 0.083% Inhal Mariely (2.5 Mg/3 Ml) Ud) 2.5 mg IH Q6H PRN PRN Reason: Shortness of Breath Aspirin (Ecotrin) 81 mg PO DAILY [facility] Last Admin: 09/20/17 09:09 Dose: 81 mg Divalproex Sodium (Depakote Er(Once Daily)) 1,000 mg PO HS [facility] Last Admin: 09/17/17 22:01 Dose: 1,000 mg Divalproex Sodium (Depakote Er(Once Daily)) 500 mg PO HS [facility] Last Admin: 09/17/17 22:01 Dose: 500 mg Enoxaparin Sodium (Lovenox) 40 mg SC DAILY [facility] PRN Reason: Protocol Last Admin: 09/20/17 09:09 Dose: 40 mg Hydrochlorothiazide (Microzide) 12.5 mg PO DAILY [facility] Last Admin: 09/17/17 08:36 Dose: 12.5 mg Losartan Potassium (Cozaar) 100 mg PO DAILY [facility] Last Admin: 09/17/17 08:36 Dose: 100 mg Olanzapine (Zyprexa) 5 mg PO HS [facility] Last Admin: 09/20/17 21:56 Dose: 5 mg Ondansetron HCl (Zofran Inj) 4 mg IVP Q6 PRN PRN Reason: Nausea/Vomiting Polyethylene Glycol (Miralax) 17 gm PO DAILY [facility] Last Admin: 09/17/17 08:37 Dose: Not Given - Labs Labs: 09/18/17 05:30 09/20/17 10:00 - Constitutional Appears: Well, Non-toxic, No Acute Distress - Head Exam Head Exam: ATRAUMATIC, NORMAL INSPECTION, NORMOCEPHALIC - Eye Exam Eye Exam: EOMI, Normal appearance, PERRL Pupil Exam: NORMAL ACCOMODATION, PERRL - ENT Exam ENT Exam: Mucous Membranes Moist - Neck Exam Neck Exam: Full ROM - Respiratory Exam Respiratory Exam: Clear to Ausculation Bilateral, NORMAL BREATHING PATTERN. absent: Rales, Rhonchi, Wheezes, Respiratory Distress - Cardiovascular Exam Cardiovascular Exam: REGULAR RHYTHM, +S1, +S2. absent: Murmur - GI/Abdominal Exam GI & Abdominal Exam: Soft, Normal Bowel Sounds - Neurological Exam Neurological Exam: Alert, Awake, Oriented x3 - Psychiatric Exam Psychiatric exam: Normal Affect, Normal Mood. absent: Anxious, Depressed - Skin Skin Exam: Dry, Intact, Normal Color. absent: Erythema Assessment and Plan - Assessment and Plan (Free Text) Assessment: 77 yo Female with PMHx of HTN, NIDDM, Schizophrenia, Bipolar disorder, Anxiety in TCU for completion of antibiotics and physical therapy. 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 Fluid restriction. Right Upper Extremity Cellulitis - Resolved - afebrile - Clindamycin course completed Generalized Weakness - Improving - Tolerating regular diet PO - Continue skilled PT H/O Schizophrenia - Stable - On Zyprexa 5 mg qd - On Haloperidol 75 mg IM Q21 last dose 08/28 - Psych recommendations appreciated H/O Bipolar disorder - Stable - Hold Depakote 500 po qhs - Psych recommendations appreciated Essential Hypertension - chronic - heart healthy diet - Cozaar 100 mg PO QD. - Aspirin 81 po qd Non Insulin Dependent Diabetes Mellitus type 2 - stable - consistent mod carb diet - HgbA1C on admission 6.6 - no home meds ADLS - lives alone - needs assistance with ADLS - pediatric social worker evaluation Prophylactic measures - DVT: SCDs, Lovenox 40 mg SC <Cecilio Miranda - Last Filed: 09/22/17 14:49> Objective - Vital Signs/Intake and Output Vital Signs (last 24 hours): Temp Pulse Resp BP Pulse Ox 98.4 F 68 20 144/69 94 L 09/22/17 08:29 09/22/17 08:29 09/22/17 08:29 09/22/17 08:29 09/22/17 08:29 - Labs Labs: 09/22/17 09:54 09/22/17 09:54 Attending/Attestation - Attestation I have personally seen and examined this patient.: Yes I have fully participated in the care of the patient.: Yes I have reviewed all pertinent clinical information, including history, physical exam and plan: Yes
[2017-09-21] MEDS: Enoxaparin 40 mg Syringe SC SCH (09:23)
--- NOTE | 2017-09-21 10:26 | CP.PCM.PN ---
Subjective - Date & Time of Evaluation Date of Evaluation: 09/21/17 Time of Evaluation: 11:05 - Subjective Subjective: awake . feeling good Objective - Vital Signs/Intake and Output Vital Signs (last 24 hours): Temp Pulse Resp BP Pulse Ox 97.9 F 69 20 133/63 94 L 09/21/17 08:18 09/21/17 08:18 09/21/17 08:18 09/21/17 08:18 09/21/17 08:18 - Medications Medications: Current Medications Albuterol Sulfate (Albuterol 0.083% Inhal Mariely (2.5 Mg/3 Ml) Ud) 2.5 mg IH Q6H PRN PRN Reason: Shortness of Breath Aspirin (Ecotrin) 81 mg PO DAILY [facility] Last Admin: 09/21/17 09:23 Dose: 81 mg Divalproex Sodium (Depakote Er(Once Daily)) 1,000 mg PO [facility] Last Admin: 09/17/17 22:01 Dose: 1,000 mg Divalproex Sodium (Depakote Er(Once Daily)) 500 mg PO [facility] Last Admin: 09/17/17 22:01 Dose: 500 mg Enoxaparin Sodium (Lovenox) 40 mg SC DAILY [facility] PRN Reason: Protocol Last Admin: 09/21/17 09:23 Dose: 40 mg Hydrochlorothiazide (Microzide) 12.5 mg PO DAILY [facility] Last Admin: 09/17/17 08:36 Dose: 12.5 mg Losartan Potassium (Cozaar) 100 mg PO DAILY [facility] Last Admin: 09/17/17 08:36 Dose: 100 mg Olanzapine (Zyprexa) 5 mg PO [facility] Last Admin: 09/20/17 21:56 Dose: 5 mg Ondansetron HCl (Zofran Inj) 4 mg IVP Q6 PRN PRN Reason: Nausea/Vomiting Polyethylene Glycol (Miralax) 17 gm PO DAILY [facility] Last Admin: 09/17/17 08:37 Dose: Not Given - Labs Labs: 09/18/17 05:30 09/20/17 10:00 - Constitutional Appears: No Acute Distress - ENT Exam ENT Exam: Mucous Membranes Moist - Neck Exam Neck Exam: absent: Lymphadenopathy - Respiratory Exam Respiratory Exam: absent: Chest Wall Tenderness - Cardiovascular Exam Cardiovascular Exam: absent: Gallop, JVD, Rubs - GI/Abdominal Exam GI & Abdominal Exam: Soft, Normal Bowel Sounds - Extremities Exam Extremities Exam: absent: Calf Tenderness - Back Exam Back Exam: absent: CVA tenderness (L), CVA tenderness (R) - Neurological Exam Neurological Exam: Alert - Psychiatric Exam Psychiatric exam: Normal Affect - Skin Skin Exam: absent: Cyanosis Assessment and Plan (1) Cellulitis of right upper extremity Assessment & Plan: Patient with hyponatremia consistent with SIADH. Etiology of SIADH could be possibly related to multiple psych medication that she is receiving consider adjust or d/c some? add NCL PO fluid [id number]/24hr In addition to the PMHx of HTN, NIDDM, Schizophrenia, Bipolar disorder, Anxiety Status: Acute (2) Generalized weakness Status: Acute (3) Hyponatremia Status: Acute
[2017-09-22] MEDS: Enoxaparin 40 mg Syringe SC SCH (08:10)
[2017-09-22 08:30] VITALS: BP 144/69; PULSE 68; TEMP 98.4; O2SAT 94
[2017-09-22 10:07] LABS: HEMOGLOBIN 9.8 g/dL (12.0-16.0); MEAN CELL VOLUME 93.4 fl (81.0-99.0); MEAN CORPUSCULAR HGB CONC 34.3 g/dL (33.0-37.0); RBC 3.07 Mil/uL (3.80-5.20); RED CELL DISTRIBUTION WIDTH 14.3 % (11.5-14.5); WHITE BLOOD COUNT 7.1 K/uL (4.8-10.8)
[2017-09-22 10:21] LABS: BLOOD UREA NITROGEN 12 mg/dl (7-17); CALCIUM 8.6 mg/dL (8.4-10.2); GFR AFRICAN-AMERICAN > 60; GFR NON-AFRICAN AMERICAN > 60
--- NOTE | 2017-09-22 17:09 | CP.PCM.DIS ---
Provider - Provider Date of Admission: 09/14/17 23:18 Attending physician: Cecilio Miranda MD Time Spent in preparation of Discharge (in minutes): 15 Diagnosis - Discharge Diagnosis (1) Generalized weakness Status: Chronic (2) Cellulitis of right upper extremity Status: Resolved (3) Hyponatremia Status: Resolved Hospital Course - Lab Results Lab Results: Most Recent Lab Values WBC 7.1 K/uL (4.8-10.8) 09/22/17 09:54 RBC 3.07 Mil/uL (3.80-5.20) L 09/22/17 09:54 Hgb 9.8 g/dL (12.0-16.0) L 09/22/17 09:54 Hct 28.6 % (34.0-47.0) L 09/22/17 09:54 MCV 93.4 fl (81.0-99.0) D 09/22/17 09:54 MCH 32.0 pg (27.0-31.0) H 09/22/17 09:54 MCHC 34.3 g/dL (33.0-37.0) 09/22/17 09:54 RDW 14.3 % (11.5-14.5) 09/22/17 09:54 Plt Count 258 K/uL (130-400) 09/22/17 09:54 Sodium 133 mmol/l (132-148) 09/22/17 09:54 Potassium 4.0 MMOL/L (3.6-5.0) 09/22/17 09:54 Chloride 97 mmol/L (98-107) L 09/22/17 09:54 Carbon Dioxide 27 mmol/L (22-30) 09/22/17 09:54 Anion Gap 13 (10-20) 09/22/17 09:54 BUN 12 mg/dl (7-17) 09/22/17 09:54 Creatinine 0.7 mg/dl (0.7-1.2) 09/22/17 09:54 Est GFR ( Amer) > 60 09/22/17 09:54 Est GFR (Non-Af Amer) > 60 09/22/17 09:54 Random Glucose 194 mg/dL (65-105) H 09/22/17 09:54 Serum Osmolality 263 mosm/kg (272-300) L 09/18/17 05:30 Calcium 8.6 mg/dL (8.4-10.2) 09/22/17 09:54 Urine Osmolality 318 mosm/kg (300-1000) 09/18/17 01:30 Ur Random Sodium 77 meq/L 09/18/17 01:30 Ur Random Potassium 25.4 mmol/L 09/18/17 01:30 Urine Chloride 69 mmol/L (32-290) 09/17/17 23:18 - Hospital Course Hospital Course: 77 yo Female with PMHx of HTN, NIDDM, Schizophrenia, Bipolar disorder, Anxiety admitted to TCU for generalized weakness and cellulitis of right upper extremity. Patient also developed asymptomatic hyponatremia which improved with fluid restriction and tolvaptan. IV clindamycin course completed with resolution of cellulitis. Generalized weakness improved with skilled PT. Cleared by dipper machine operator and psych. Patient to F/U with psych and PCP on outpatient basis. Discharge Medication Sodium Chloride 1 gm one tablet daily # 30 Discharge Exam - Head Exam Head Exam: ATRAUMATIC, NORMAL INSPECTION, NORMOCEPHALIC - Eye Exam Eye Exam: EOMI, Normal appearance, PERRL Pupil Exam: NORMAL ACCOMODATION, PERRL - ENT Exam ENT Exam: Mucous Membranes Moist - Neck Exam Neck exam: Full Rom - Respiratory Exam Respiratory Exam: Clear to PA & Lateral, NORMAL BREATHING PATTERN, UNREMARKABLE. absent: Rales, Rhonchi, Wheezes, Respiratory Distress - Cardiovascular Exam Cardiovascular Exam: REGULAR RHYTHM, +S1, +S2. absent: Systolic Murmur - GI/Abdominal Exam GI & Abdominal Exam: Normal Bowel Sounds, Soft, Unremarkable. absent: Firm, Guarding - Extremities Exam Extremities exam: normal inspection - Back Exam Back exam: absent: CVA tenderness (L), CVA tenderness (R) - Neurological Exam Neurological exam: Alert, Normal Gait, Oriented x3 - Psychiatric Exam Psychiatric exam: Normal Affect, Normal Mood - Skin Skin Exam: Dry, Intact, Normal Color Discharge Plan - Follow Up Plan Condition: FAIR Disposition: HOME/ ROUTINE Patient education suggested?: Yes Instructions: Preventing Falls, Generalized Weakness (DC), Cellulitis (Skin Infection), Adult (DC), Hyponatremia (DC) Additional Instructions: PLEASE FOLLOW UP WITH [facility] TO DETERMINE WHETHER OR NOT TO CONTINUE DEPAKOTE ,MEDICATION BEING HELD AT THIS TIME DUE TO LOW SODIUM. PLEASE HOLD ALL MEDS EXCEPT ZYPREXA, ASPIRIN, AND SODIUM CHLORIDE TABLET. Referrals: Cecilio Miranda MD [Family Provider] - Jeevan Finney MD [Medical Doctor] -
== END 2017-09-22 13:54 | disposition home health service (06) | DRG 603 ==
LOC: H.TCU 23:18
PROVIDERS: ADMIT Family Medicine; ATTEND Family Medicine
PROC: 3E03329 Introduction of Other Anti-infective into Peripheral Vein, Percutaneous Approach (ICD-10-PCS; principal; 2017-09-14)
PROC: F07Z9FZ Gait Training/Functional Ambulation Treatment using Assistive, Adaptive, Supportive or Protective Equipment (ICD-10-PCS; 2017-09-14)
PROC: F08Z4FZ Home Management Treatment using Assistive, Adaptive, Supportive or Protective Equipment (ICD-10-PCS; 2017-09-14)
PROC: F07K6FZ Therapeutic Exercise Treatment of Musculoskeletal System - Upper Back / Upper Extremity using Assistive, Adaptive, Supportive or Protective Equipment (ICD-10-PCS; 2017-09-15)
DX: L03.113 Cellulitis of right upper limb (principal); E22.2 Syndrome of inappropriate secretion of antidiuretic hormone; T43.595A Adverse effect of other antipsychotics and neuroleptics, initial encounter; F01.50 Vascular dementia, unspecified severity, without behavioral disturbance, psychotic disturbance, mood disturbance, and anxiety; I10 Essential (primary) hypertension; F25.9 Schizoaffective disorder, unspecified; F31.9 Bipolar disorder, unspecified; E11.9 Type 2 diabetes mellitus without complications; R53.1 Weakness; F41.9 Anxiety disorder, unspecified; E78.00 Pure hypercholesterolemia, unspecified; Z79.84 Long term (current) use of oral hypoglycemic drugs; Z90.49 Acquired absence of other specified parts of digestive tract

== ENCOUNTER 2017-12-31 12:21 | Emergency (ER) | payer MEDICARE ==
[2017-12-31 12:27] VITALS: BMI 27.1
--- NOTE | 2017-12-31 12:49 | ED PDOC ---
HPI: Psych/Substance Abuse Time Seen by Provider: 12/31/17 12:30 Chief Complaint (Nursing): Psychiatric Evaluation Chief Complaint (Provider): Crisis eval History Per: Patient Additional Complaint(s): 77 y/o F with PMHx of HTN, NIDDM, Schizophrenia, Bipolar disorder, Anxiety presents to ED via EMS in order to undergo crisis eval. As per EMS, visiting nurse called to have Pt evaluated due to not taking her psych meds and acting erratic at home. Visiting nurse is ADOLFO Lino - from [facility] - visiting nurse for Mental Health patients. [phone] Pt offers no physical complaints. Pt smiling and happy, handing out boss to staff. Pt She states she needs help at home, lives alone, and has "a person" from some place who comes almost every day and help her to take her medications. The closest family is her nephew Nicolas. Reports constipation, last BM was 3-4 days ago. Has a forehead pruritic rash, unclear since when. Reports a chronic Back pain, which sometimes radiates to her right leg, associated with intermittent numbness sensation. Denies any back pain at this time. PMD: Dr. Reed Past Medical History Reviewed: Nursing Documentation, Vital Signs Vital Signs: Last Vital Signs Temp 99.4 F 12/31/17 12:26 Pulse 119 H 12/31/17 12:26 Resp BP 211/142 H 12/31/17 12:26 Pulse Ox 98 12/31/17 12:26 - Medical History PMH: Anxiety, Bipolar Disorder, Diabetes, HTN, Hypercholesterolemia, Schizophrenia Denies: Hepatitis, HIV, Chronic Kidney Disease, Seizures, Sexually Transmitted Disease - Surgical History Surgical History: Appendectomy - Family History Family History: States: Unknown Family Hx - Living Arrangements Living Arrangements: Alone - Social History Current smoker - smoking cessation education provided: No Alcohol: None Drugs: Denies - Home Medications Home Medications: Ambulatory Orders Medication Instructions Recorded Albuterol 0.083% [Albuterol 0.083% 3 ml IH Q6 PRN 12/31/17 Inhal Mariely (2.5 mg/3 ml) UD] Amantadine [Amantadine 100 mg Cap] 100 mg PO DAILY 12/31/17 Aspirin [Ecotrin] 81 mg PO DAILY 12/31/17 Donepezil [Aricept] 5 mg PO DAILY 12/31/17 Haloperidol [Haldol] 7.5 mg PO DAILY 12/31/17 Losartan [Cozaar] 100 mg PO DAILY 12/31/17 Polyethylene Glycol 3350 [Miralax] 17 gm PO DAILY PRN 12/31/17 traZODone [Desyrel] 50 mg PO HS 12/31/17 - Allergies Allergies/Adverse Reactions: Allergies Allergy/AdvReac Type Severity Reaction Status Date / Time No Known Allergies Allergy Verified 07/28/17 09:10 Review of Systems ROS Statement: Except As Marked, All Systems Reviewed And Found Negative Physical Exam - Reviewed Nursing Documentation Reviewed: Yes Vital Signs Reviewed: Yes - Physical Exam Appears: Positive for: Well, Non-toxic, No Acute Distress Head Exam: Positive for: ATRAUMATIC, NORMAL INSPECTION, NORMOCEPHALIC Skin: Positive for: Normal Color, Warm, DRY Eye Exam: Positive for: EOMI, Normal appearance, PERRL ENT: Positive for: Normal ENT Inspection Neck: Positive for: Normal, Painless ROM Cardiovascular/Chest: Positive for: Regular Rate, Rhythm Respiratory: Positive for: CNT, Normal Breath Sounds Gastrointestinal/Abdominal: Positive for: Normal Exam, Soft Back: Positive for: Normal Inspection Extremity: Positive for: Normal ROM Neurologic/Psych: Positive for: Alert, Oriented - Laboratory Results Result Diagrams: 12/31/17 16:25 12/31/17 13:30 - ECG O2 Sat by Pulse Oximetry: 98 Medical Decision Making Medical Decision Making: Diagnostics ordered Pt with elevated WBC and lactate. BUN and CR WNL IVF started. P:116 Pt meets criteria for SIRS at this time. Case discussed with Hospitalist Dr. Andrade, who presented to see and evaluate Pt at bedside. Repeat lactate 1.[address]: NAD. As per Dr. Andrade. Pt medically stable to undergo crisis eval and possible alina-psych admit if indicated Case endorsed to ARMAND Ayers at 1999 pending crisis eval Repeat BP: 141/82 Disposition - Clinical Impression Clinical Impression: Leukocytosis, Schizophrenia - Patient ED Disposition Is Patient to be Admitted: Transfer of Care - Disposition Disposition: Transfer of Care Disposition Time: 19:10 Condition: STABLE Forms: [employer] (Maltese)
--- NOTE | 2017-12-31 13:41 | RAD ---
Date of service: 12/31/2017 PROCEDURE: CHEST RADIOGRAPH, 1 VIEW HISTORY: med screening COMPARISON: Chest radiograph dated 09/10/2017. FINDINGS: LUNGS: Clear. PLEURA: Stable elevation of the right hemidiaphragm. No pneumothorax or pleural fluid seen. CARDIOVASCULAR: Aortic atherosclerotic calcifications. Cardiomediastinal silhouette stably enlarged. OSSEOUS STRUCTURES: Unchanged. VISUALIZED UPPER ABDOMEN: Normal. OTHER FINDINGS: None. IMPRESSION: No active disease.
[2017-12-31 13:43] LABS: BASO % 0.1 % (0.0-2.0); EOS # 0.1 K/uL (0.0-0.7); EOS % 0.4 % (0.0-4.0); HEMOGLOBIN 13.7 g/dL (12.0-16.0); LYMPH % 6.4 % (20.0-40.0); MEAN CELL VOLUME 85.7 fl (81.0-99.0); MEAN CORPUSCULAR HEMOGLOBIN 28.9 pg (27.0-31.0); MEAN CORPUSCULAR HGB CONC 33.7 g/dL (33.0-37.0); MEAN PLATELET VOLUME 8.3 fl (7.2-11.7); MONO # 0.9 K/uL (0.0-0.8); MONO % 5.9 % (0.0-10.0); NEUT # 13.7 K/uL (1.8-7.0); NEUT % 87.2 % (50.0-75.0); NRBC % 0.1 % (0.0-0.0); PLATELET COUNT 376 K/uL (130-400); RBC 4.76 Mil/uL (3.80-5.20); RED CELL DISTRIBUTION WIDTH 13.8 % (11.5-14.5); WHITE BLOOD COUNT 15.7 K/uL (4.8-10.8)
[2017-12-31 13:59] LABS: ALB/GLOB RATIO 1.1 (1.0-2.1); ALBUMIN 4.4 g/dL (3.5-5.0); ALT/SGPT 13 U/L (9-52); AST/SGOT 48 U/L (14-36); BLOOD UREA NITROGEN 13 mg/dl (7-17); CALCIUM 9.9 mg/dL (8.4-10.2); GFR NON-AFRICAN AMERICAN > 60
[2017-12-31 14:40] LABS: LYMPHOCYTE 10 % (20-50); MONOCYTE 5 % (0-10); NEUTROPHIL 85 % (42-75); TOTAL CELLS COUNTED 100
[2017-12-31 14:41] LABS: PLATELET ESTIMATE NORMAL (NORMAL)
[2017-12-31 14:53] LABS: SQUAMOUS EPITHIAL 1 /hpf (0-5); URINE BACTERIA RARE (<OCC); URINE BILIRUBIN NEGATIVE (NEGATIVE); URINE BLOOD NEGATIVE (NEGATIVE); URINE CLARITY CLEAR (Clear); URINE COLOR YELLOW (YELLOW); URINE GLUCOSE (UA) NEG (Normal); URINE LEUKOCYTE ESTERASE NEG Leu/uL (Negative); URINE PROTEIN 30 mg/dL (NEGATIVE); URINE UROBILINOGEN 0.2-1.0 mg/dL (0.2-1.0)
--- NOTE | 2017-12-31 15:00 | CT ---
Date of service: 12/31/2017 PROCEDURE: CT HEAD WITHOUT CONTRAST. HISTORY: AMS COMPARISON: CT head dated 03/09/2016. TECHNIQUE: Axial computed tomography images were obtained through the head/brain without intravenous contrast. Radiation dose: Total exam DLP = 816.78 mGy-cm. This CT exam was performed using one or more of the following dose reduction techniques: Automated exposure control, adjustment of the mA and/or kV according to patient size, and/or use of iterative reconstruction technique. FINDINGS: HEMORRHAGE: No intracranial hemorrhage. BRAIN: No mass effect or edema. Atrophy. Chronic microvascular ischemic changes. Bilateral basal ganglia lacunar infarctions redemonstrated. VENTRICLES: Unremarkable. No hydrocephalus. CALVARIUM: Stable nonspecific low-attenuation appearance of the clivus. This is stable dating back to 02/23/2016 PARANASAL SINUSES: Unremarkable as visualized. No significant inflammatory changes. MASTOID AIR CELLS: Unremarkable as visualized. No inflammatory changes. OTHER FINDINGS: None. IMPRESSION: No acute intracranial pathology. Age-related changes. No significant interval change.
[2017-12-31 15:08] LABS: BARBITURATES, UR NEGATIVE (NEGATIVE); BENZODIAZEPINES, UR NEGATIVE (NEGATIVE); OPIATES, UR NEGATIVE (NEGATIVE); PHENCYCLIDINE, UR NEGATIVE (NEGATIVE)
[2017-12-31 15:16] LABS: VENOUS BLOOD GAS PCO2 50 mmHg (40-60); VENOUS BLOOD GAS PO2 31 mm/Hg (30-55)
[2017-12-31] MEDS ORDERED: Sodium Chloride 0.9% 1,000 ML IV STA (15:34)
[2017-12-31 16:41] LABS: BASO # 0.1 K/uL (0.0-0.2); LYMPH # 1.8 K/uL (1.0-4.3); MEAN PLATELET VOLUME 8.7 fl (7.2-11.7); MONO # 1.2 K/uL (0.0-0.8)
[2017-12-31 17:03] LABS: BASO % 0.5 % (0.0-2.0); EOS % 0.1 % (0.0-4.0); HEMOGLOBIN 13.1 g/dL (12.0-16.0); LYMPH % 11.1 % (20.0-40.0); MEAN CELL VOLUME 86.9 fl (81.0-99.0); MEAN CORPUSCULAR HEMOGLOBIN 28.3 pg (27.0-31.0); MEAN CORPUSCULAR HGB CONC 32.6 g/dL (33.0-37.0); MONO % 7.6 % (0.0-10.0); NEUT # 13.2 K/uL (1.8-7.0); NEUT % 80.7 % (50.0-75.0); NRBC % 0.2 % (0.0-0.0); RBC 4.64 Mil/uL (3.80-5.20); RED CELL DISTRIBUTION WIDTH 14.2 % (11.5-14.5); WHITE BLOOD COUNT 16.4 K/uL (4.8-10.8)
[2017-12-31 21:26] VITALS: TEMP 98.4
[2018-01-01 03:00] VITALS: BP 156/98; PULSE 71; RESP 16; O2SAT 96
--- NOTE | 2018-01-01 13:41 | CARD ---
APPROVED REPORT Date of service: 12/31/2017 EKG Measurement Heart [id number] <Conclusion> Sinus tachycardia Left axis deviation Left ventricular hypertrophy with repolarization abnormality Abnormal ECG
== END 2017-12-31 22:08 | disposition home or self-care (01) ==
LOC: H.ER 12:21
DX: F20.9 Schizophrenia, unspecified (principal); D72.829 Elevated white blood cell count, unspecified; E11.9 Type 2 diabetes mellitus without complications; E78.00 Pure hypercholesterolemia, unspecified; F31.9 Bipolar disorder, unspecified; I10 Essential (primary) hypertension; Z79.899 Other long term (current) drug therapy
CPT/HCPCS: 70450; 71045; 80053; 81003; 82803; 84484; 85025; 87040; 87086; 87181; 93005; 99283; G0480; J7030

== ENCOUNTER 2018-01-01 00:56 | Emergency (ER) | payer MEDICARE ==
[2018-01-01 01:00] VITALS: BMI 28.3
--- NOTE | 2018-01-01 03:06 | ED PDOC ---
HPI: Altered Mental Status Time Seen by Provider: 01/01/18 01:00 Chief Complaint (Nursing): Altered Mental Status Chief Complaint (Provider): Altered Mental Status History Per: Patient, EMS History/Exam Limitations: None Additional Complaint(s): 77 years old female with history of diabetes, bipolar disorder and anxiety brought to ER by EMS for psychiatric evaluation after patient was found wandering outside the building where she lives. Patient states there were people doing drugs in her lobby, she felt scared and wanted to come here instead. Patient offers no medical complaints at this time. PMD: non provided Past Medical History Reviewed: Historical Data, Nursing Documentation, Vital Signs Vital Signs: Last Vital Signs Temp 98.6 F 01/01/18 01:05 Pulse 86 01/01/18 01:45 Resp 18 01/01/18 01:45 BP 157/96 H 01/01/18 01:45 Pulse Ox 100 01/01/18 01:05 - Medical History PMH: Anxiety, Bipolar Disorder, Diabetes, HTN, Hypercholesterolemia, Schizophrenia Denies: Hepatitis, HIV, Chronic Kidney Disease, Seizures, Sexually Transmitted Disease - Surgical History Surgical History: Appendectomy - Family History Family History: States: Unknown Family Hx - Social History Current smoker - smoking cessation education provided: No Alcohol: None Drugs: Denies - Immunization History Hx Tetanus Toxoid Vaccination: No Hx Influenza Vaccination: No Hx Pneumococcal Vaccination: No - Home Medications Home Medications: Ambulatory Orders Medication Instructions Recorded Amantadine [Amantadine 100 mg Cap] 100 mg PO DAILY 12/31/17 Donepezil [Aricept] 5 mg PO DAILY 12/31/17 Haloperidol [Haldol] 7.5 mg PO DAILY 12/31/17 Losartan [Cozaar] 100 mg PO DAILY 12/31/17 Polyethylene Glycol 3350 [Miralax] 17 gm PO DAILY PRN 12/31/17 RX: Albuterol 0.083% [Albuterol 3 ml IH Q6 PRN 12/31/17 0.083% Inhal Mariely (2.5 mg/3 ml) UD] RX: Aspirin [Ecotrin] 81 mg PO DAILY 12/31/17 RX: traZODone [Desyrel] 50 mg PO HS 12/31/17 - Allergies Allergies/Adverse Reactions: Allergies Allergy/AdvReac Type Severity Reaction Status Date / Time No Known Allergies Allergy Verified 01/01/18 01:05 Review of Systems ROS Statement: Except As Marked, All Systems Reviewed And Found Negative Constitutional: Negative for: Fever Respiratory: Negative for: Shortness of Breath Gastrointestinal: Negative for: Vomiting, Abdominal Pain Physical Exam - Reviewed Nursing Documentation Reviewed: Yes Vital Signs Reviewed: Yes - Physical Exam Appears: Positive for: Non-toxic, No Acute Distress Head Exam: Positive for: ATRAUMATIC, NORMOCEPHALIC Skin: Positive for: Normal Color, Warm, Dry Eye Exam: Positive for: Normal appearance ENT: Positive for: Normal ENT Inspection Neck: Positive for: Normal Cardiovascular/Chest: Positive for: Regular Rate, Rhythm Respiratory: Positive for: Normal Breath Sounds Gastrointestinal/Abdominal: Positive for: Normal Exam Back: Positive for: Normal Inspection Extremity: Positive for: Normal ROM Neurologic/Psych: Positive for: Alert, road cutter II-XII, Oriented (X2), Gait (stable). Negative for: Motor/Sensory Deficits, Aphasia, Facial Droop - Laboratory Results Result Diagrams: 01/02/18 18:53 01/02/18 18:53 - ECG O2 Sat by Pulse Oximetry: 100 (RA) Pulse Ox Interpretation: Normal Medical Decision Making Medical Decision Making: Time: 144 Initial Plan: psychiatric evaluation --CMP --Urine culture --Urinalysis --Blood culture --CBC medical workup was done last night when patient was here, labs and urine and cxr - no source of infection noted. pt had been cleared b y psych. I spoke with jordan worker Eleni and I requested that the psychiatric do a face to face with patient in the am to asses patient. [address] Maynard by me, pending psychiatric evaluation. pt stable, awake and alert, in no respiratory or other distress. patent airway. offering no complaints. calm and cooperative in bed. denies SI and HI. denies all problems. Scribe Attestation: Documented by Soledad Woods, acting as a scribe for Grant Reed MD. Provider Scribe Attestation: All medical record entries made by the Scribe were at my direction and personally dictated by me. I have reviewed the chart and agree that the record accurately reflects my personal performance of the history, physical exam, medical decision making, and the department course for this patient. I have also personally directed, reviewed, and agree with the discharge instructions and disposition. Disposition - Clinical Impression Clinical Impression: Schizophrenia - Patient ED Disposition Is Patient to be Admitted: Transfer of Care - Disposition Disposition: Transfer of Care Disposition Time: 07:00 Condition: STABLE Patient Signed Over To: Anabell Maynard
--- NOTE | 2018-01-01 08:02 | ED PDOC ---
- ECG O2 Sat by Pulse Oximetry: 97 (RA) Pulse Ox Interpretation: Normal Medical Decision Making Medical Decision Making: Time: 0700 Patient endorsed to me by Dr. Reed pending psychiatric evaluation. Scribe Attestation: Documented by Khoa Hastings, acting as a scribe for Anabell Maynard MD Provider Scribe Attestation: All medical record entries made by the Scribe were at my direction and personally dictated by me. I have reviewed the chart and agree that the record accurately reflects my personal performance of the history, physical exam, medical decision making, and the department course for this patient. I have also personally directed, reviewed, and agree with the discharge instructions and disposition. Disposition - Disposition Forms: [employer] (Georgian)
--- NOTE | 2018-01-01 15:11 | ED PDOC ---
- ECG O2 Sat by Pulse Oximetry: 100 (RA) Pulse Ox Interpretation: Normal Medical Decision Making Medical Decision Making: Time: 1500 Patient endorsed to me by Dr. Maynard pending screening from [facility] and patient is medically cleared. Scribe Attestation: Documented by Khoa Hastings, acting as a scribe for Julianna Ruiz MD Provider Scribe Attestation: All medical record entries made by the Scribe were at my direction and personally dictated by me. I have reviewed the chart and agree that the record accurately reflects my personal performance of the history, physical exam, medical decision making, and the department course for this patient. I have also personally directed, reviewed, and agree with the discharge instructions and disposition. Disposition - Disposition Forms: [employer] (Slovak)
--- NOTE | 2018-01-01 16:13 | CP.PCM.CON ---
History of Present Illness - History of Present Illness History of Present Illness: pt is 77ys old female with previous diagnosis of schizophrenia and dementia, brought to ER due to disorganized behavior on evaluation, pt is labile, delusional, disorganized speech and thought process, laughing inappropriately , responding to internal stimuli, believes she is floridly psychotic Past Patient History - Infectious Disease Hx of Infectious Diseases: None - Past Medical History & Family History Past Medical History?: Yes - Past Social History Alcohol: None Drugs: Denies - CARDIAC Hx Cardiac Disorders: No Hx Hypertension: Yes - PULMONARY Hx Tuberculosis: No - NEUROLOGICAL HX Cerebrovascular Accident: No Hx Seizures: No - HEENT Hx HEENT Problems: No - RENAL Hx Chronic Kidney Disease: No - ENDOCRINE/METABOLIC Hx Diabetes Mellitus Type 2: Yes - HEMATOLOGICAL/ONCOLOGICAL Hx Cancer: No Hx Human Immunodeficiency Virus (HIV): No - INTEGUMENTARY Hx Dermatological Problems: No - MUSCULOSKELETAL/RHEUMATOLOGICAL Hx Falls: Yes ("2 x last mo") - GASTROINTESTINAL Hx Gastrointestinal Disorders: Yes Hx Constipation: Yes - GENITOURINARY/GYNECOLOGICAL Hx Sexually Transmitted Disorders: No - PSYCHIATRIC Hx Anxiety: Yes Hx Bipolar Disorder: Yes Hx Schizophrenia: Yes - SURGICAL HISTORY Hx Appendectomy: Yes - ANESTHESIA Hx Anesthesia: Yes Hx Anesthesia Reactions: No Hx Malignant Hyperthermia: No Meds Allergies/Adverse Reactions: Allergies Allergy/AdvReac Type Severity Reaction Status Date / Time No Known Allergies Allergy Verified 01/01/18 01:05 Results - Vital Signs Recent Vital Signs: Last Vital Signs Temp 98.0 F 01/01/18 07:44 Pulse 90 01/01/18 13:02 Resp 18 01/01/18 13:02 BP 160/76 H 01/01/18 13:02 Pulse Ox 100 01/01/18 15:11 Assessment & Plan - Assessment and Plan (Free Text) Assessment: schizophrenia Plan: pt at current mental status floridly psychotic and disorganized, danger to self and others, refusing admiision to psychiatry and refusing mdications pt will be referred for screening for involuntary admission for medication stabilization
--- NOTE | 2018-01-02 00:34 | ED PDOC ---
- Laboratory Results Result Diagrams: 01/02/18 18:53 01/02/18 18:53 - ECG O2 Sat by Pulse Oximetry: 95 Medical Decision Making Medical Decision Making: Time: 00:00 --Patient is endorsed to provider by Dr. Ruiz [place] [facility] [place]. Time: 0700 --Patient is signed out to Dr. Easton, pending [facility] [place]. Scribe Attestation: Documented by Brianna Horner, acting as a scribe for Bala Shay MD. Provider Scribe Attestation: All medical record entries made by the Scribe were at my direction and persona lly dictated by me. I have reviewed the chart and agree that the record accurately reflects my personal performance of the history, physical exam, medical decision making, and the department course for this patient. I have also personally directed, reviewed, and agree with the discharge instructions and disposition. Disposition - Clinical Impression Clinical Impression: Schizophrenia - POA Present On Arrival: None - Disposition Disposition: Transfer of Care Disposition Time: 07:00 Condition: FAIR
--- NOTE | 2018-01-02 07:52 | ED PDOC ---
- ECG O2 Sat by Pulse Oximetry: 95 (RA) Pulse Ox Interpretation: Normal - Progress ED Course And Treament: 1449: Dr. Steen to fu on labs. Crisis wanted repeat labs and ekg. FU on crisis. Medical Decision Making Medical Decision Making: Time: 0700 -- Patient endorsed to me by Dr. Shay, [place] [facility] [place]. ___- Scribe Attestation: Documented by Noelle Fischer, acting as a scribe for Lawrence Easton MD. Provider Scribe Attestation: All medical record entries made by the Scribe were at my direction and personally dictated by me. I have reviewed the chart and agree that the record accurately reflects my personal performance of the history, physical exam, medical decision making, and the department course for this patient. I have also personally directed, reviewed, and agree with the discharge instructions and disposition. Disposition - Clinical Impression Clinical Impression: Schizophrenia - POA Present On Arrival: None - Disposition Disposition: Transfer of Care Disposition Time: 14:50 Condition: FAIR Patient Signed Over To: Lisa Steen
--- NOTE | 2018-01-02 15:59 | ED PDOC ---
- Laboratory Results Result Diagrams: 01/02/18 18:53 01/02/18 18:53 - ECG O2 Sat by Pulse Oximetry: 95 (RA) Pulse Ox Interpretation: Normal Medical Decision Making Medical Decision Making: Time: 1500 --Patient signed out to this provider by Dr. Easton, pending [facility] [place] bed. [address] Patient is accepted by Dr Garibay for [facility] psych involuntary admission and transfer. Scribe Attestation: Documented by Stefania Cao, acting as a scribe for Lisa Steen MD Provider Scribe Attestation: All medical record entries made by the Scribe were at my direction and personally dictated by me. I have reviewed the chart and agree that the record accurately reflects my personal performance of the history, physical exam, medical decision making, and the department course for this patient. I have also personally directed, reviewed, and agree with the discharge instructions and disposition. Disposition Counseled Patient/Family Regarding: Studies Performed, Diagnosis - Clinical Impression Clinical Impression: Schizophrenia - POA Present On Arrival: None - Disposition Disposition: Other Institution ([facility] [place]) Disposition Time: 21:00 Condition: STABLE
[2018-01-02 18:55] VITALS: BP 140/58; PULSE 78; RESP 19; TEMP 98.8
[2018-01-02 18:59] LABS: BASO # 0.1 K/uL (0.0-0.2); BASO % 1.1 % (0.0-2.0); EOS # 0.2 K/uL (0.0-0.7); EOS % 1.4 % (0.0-4.0); HEMOGLOBIN 13.4 g/dL (12.0-16.0); LYMPH # 2.8 K/uL (1.0-4.3); LYMPH % 24.7 % (20.0-40.0); MEAN CELL VOLUME 86.8 fl (81.0-99.0); MEAN CORPUSCULAR HEMOGLOBIN 28.3 pg (27.0-31.0); MEAN CORPUSCULAR HGB CONC 32.6 g/dL (33.0-37.0); MEAN PLATELET VOLUME 8.8 fl (7.2-11.7); MONO # 1.1 K/uL (0.0-0.8); MONO % 9.8 % (0.0-10.0); NEUT # 7.3 K/uL (1.8-7.0); RBC 4.74 Mil/uL (3.80-5.20); RED CELL DISTRIBUTION WIDTH 14.1 % (11.5-14.5); WHITE BLOOD COUNT 11.5 K/uL (4.8-10.8)
[2018-01-02 19:39] LABS: ALB/GLOB RATIO 1.2 (1.0-2.1); ALBUMIN 4.1 g/dL (3.5-5.0); ALT/SGPT 25 U/L (9-52); AST/SGOT 35 U/L (14-36); BLOOD UREA NITROGEN 15 mg/dl (7-17); CALCIUM 9.2 mg/dL (8.4-10.2); GFR NON-AFRICAN AMERICAN > 60
--- NOTE | 2018-01-03 11:10 | CARD ---
APPROVED REPORT Date of service: 01/02/2018 EKG Measurement Heart [id number] <Conclusion> Normal sinus rhythm Left axis deviation Voltage criteria for left ventricular hypertrophy Abnormal ECG
[2018-01-04 19:57] VITALS: O2SAT 100
== END 2018-01-02 21:53 | disposition short-term general hospital (02) ==
LOC: H.ER 00:56
DX: F20.9 Schizophrenia, unspecified (principal); E11.9 Type 2 diabetes mellitus without complications; F03.90 Unspecified dementia, unspecified severity, without behavioral disturbance, psychotic disturbance, mood disturbance, and anxiety; I11.9 Hypertensive heart disease without heart failure
CPT/HCPCS: 80053; 85025; 93005; 96372; 99285; J1630; J2060

== ENCOUNTER 2018-06-08 14:39 | Emergency (ER) | payer MEDICARE, MEDICAID ==
[2018-06-08 14:39] VITALS: BMI 28.3
[2018-06-08 15:50] VITALS: TEMP 98.2
[2018-06-08 16:33] LABS: SQUAMOUS EPITHIAL < 1 /hpf (0-5); URINE BACTERIA MANY (<OCC); URINE BILIRUBIN NEGATIVE (NEGATIVE); URINE BLOOD NEGATIVE (NEGATIVE); URINE CLARITY CLEAR (Clear); URINE COLOR STRAW (YELLOW); URINE GLUCOSE (UA) NEG (NEGATIVE); URINE LEUKOCYTE ESTERASE MOD Leu/uL (Negative); URINE PROTEIN NEGATIVE (NEGATIVE); URINE UROBILINOGEN 0.2-1.0 mg/dL (0.2-1.0)
[2018-06-08 16:46] LABS: BLOOD UREA NITROGEN 22 mg/dl (7-17); CALCIUM 8.8 mg/dL (8.4-10.2); GFR NON-AFRICAN AMERICAN > 60; PARTIAL THROMBOPLASTIN TIME 30.4 Seconds (25.6-37.1)
[2018-06-08 16:50] LABS: BASO # 0.1 K/uL (0.0-0.2); BASO % 1.3 % (0.0-2.0); EOS # 0.1 K/uL (0.0-0.7); HEMOGLOBIN 13.6 g/dL (12.0-16.0); LYMPH # 1.5 K/uL (1.0-4.3); LYMPH % 19.3 % (20.0-40.0); MEAN CELL VOLUME 88.3 fl (81.0-99.0); MEAN CORPUSCULAR HEMOGLOBIN 29.7 pg (27.0-31.0); MEAN CORPUSCULAR HGB CONC 33.6 g/dL (33.0-37.0); MEAN PLATELET VOLUME 8.9 fl (7.2-11.7); MONO # 0.8 K/uL (0.0-0.8); MONO % 10.1 % (0.0-10.0); NEUT # 5.5 K/uL (1.8-7.0); NEUT % 68.3 % (50.0-75.0); NRBC % 0.3 % (0.0-0.0); RBC 4.58 Mil/uL (3.80-5.20); RED CELL DISTRIBUTION WIDTH 14.8 % (11.5-14.5)
[2018-06-08 16:59] LABS: B-TYPE NATRIURETIC PEPTIDE 305 pg/ml (0-900)
[2018-06-08] MEDS ORDERED: Tmp-Smz 800 mg-160 mg DS Tab PO STA (17:28)
--- NOTE | 2018-06-08 17:31 | RAD ---
HISTORY: possible admission COMPARISON: Chest x-ray performed 12/31/17 TECHNIQUE: Chest, one view. FINDINGS: LUNGS: No focal consolidation. Please note that chest x-ray has limited sensitivity for the detection of pulmonary masses. PLEURA: No significant pleural effusion identified. No definite pneumothorax . CARDIOVASCULAR: Heart size appears top normal. Aortic atherosclerotic calcifications. OSSEOUS STRUCTURES: Degenerative changes of the spine. VISUALIZED UPPER ABDOMEN: Elevation of the right hemidiaphragm. OTHER FINDINGS: None. IMPRESSION: No focal consolidation.
[2018-06-08] MEDS ORDERED: Tmp-Smz 800 mg-160 mg DS Tab ONE (17:39)
--- NOTE | 2018-06-08 18:51 | ED PDOC ---
HPI: Hypertension/Hypotension Time Seen by Provider: 06/08/18 16:13 Chief Complaint (Nursing): High Blood Pressure Chief Complaint (Provider): High Blood Pressure History Per: Patient, Family (nephew) History/Exam Limitations: no limitations Additional Complaint(s): Patient is a 78 year old female with a past medical history of HTN, HLD and diabetes, who presents to the emergency department complaining of high blood pressure. Patient's nephew is her healthcare proxy and he visited her today and noticed her to have high blood pressure and decided to bring her here. She also reports to have some diarrhea x2 days ago that got resolved. Patient reports that she did take her morning medications including her HTN medication but no other medication. She denies having any chest pain, shortness of breath or abdominal pain or any other complaints. PMD: Cecilio Miranda Past Medical History Reviewed: Historical Data, Nursing Documentation, Vital Signs Vital Signs: Last Vital Signs Temp 98.2 F 06/08/18 15:47 Pulse 73 06/08/18 17:42 Resp 18 06/08/18 17:42 BP 178/99 H 06/08/18 17:42 Pulse Ox 96 06/08/18 17:42 - Medical History PMH: Anxiety, Bipolar Disorder, Diabetes, HTN, Hypercholesterolemia, Schizophrenia Denies: Hepatitis, HIV, Chronic Kidney Disease, Seizures, Sexually Transmitted Disease - Surgical History Surgical History: Appendectomy - Family History Family History: States: Unknown Family Hx - Immunization History Hx Tetanus Toxoid Vaccination: No Hx Influenza Vaccination: No Hx Pneumococcal Vaccination: No - Home Medications Home Medications: Ambulatory Orders Medication Instructions Recorded Benztropine [Cogentin] 1 mg PO HS 06/08/18 Carvedilol [Coreg] 6.25 mg PO Q12 06/08/18 Divalproex [Depakote ER] 750 mg PO HS 06/08/18 Haloperidol [Haldol] 15 mg PO BID 06/08/18 RX: Meclizine [Meclizine*] 25 mg PO BID 06/08/18 RX: Vitamin B Complex/Vitamin C 1 tab PO TID 06/08/18 [Berocca] Valsartan [Diovan] 160 mg PO DAILY 06/08/18 - Allergies Allergies/Adverse Reactions: Allergies Allergy/AdvReac Type Severity Reaction Status Date / Time No Known Allergies Allergy Verified 01/01/18 01:05 Review of Systems Cardiovascular: Negative for: Chest Pain Respiratory: Negative for: Shortness of Breath Gastrointestinal: Negative for: Abdominal Pain Physical Exam - Reviewed Nursing Documentation Reviewed: Yes Vital Signs Reviewed: Yes - Physical Exam Appears: Positive for: Non-toxic, No Acute Distress Head Exam: Positive for: ATRAUMATIC, NORMOCEPHALIC Skin: Positive for: Normal Color, Warm, Dry Eye Exam: Positive for: Normal appearance, EOMI, PERRL ENT: Positive for: Normal ENT Inspection Neck: Positive for: Normal, Painless ROM, Supple Cardiovascular/Chest: Positive for: Regular Rate, Rhythm. Negative for: Murmur Respiratory: Positive for: Normal Breath Sounds. Negative for: Respiratory Distress Gastrointestinal/Abdominal: Positive for: Normal Exam, Soft. Negative for: Tenderness Back: Positive for: Normal Inspection. Negative for: L CVA Tenderness, R CVA Tenderness, Vertebral Tenderness Extremity: Positive for: Normal ROM. Negative for: Pedal Edema, Deformity Neurological/Psych: Positive for: Alert, Oriented - Laboratory Results Result Diagrams: 06/08/18 16:31 06/08/18 16:31 Lab Results: PT 11.0 Seconds (9.8-13.1) 06/08/18 16:31 INR 1.0 06/08/18 16:31 APTT 30.4 Seconds (25.6-37.1) 06/08/18 16:31 Troponin I < 0.0120 ng/mL (0.00-0.120) 06/08/18 16:31 NT-Pro-B Natriuret Pep 305 pg/ml (0-900) 06/08/18 16:31 Urine Color Straw (YELLOW) 06/08/18 16:22 Urine Clarity Clear (Clear) 06/08/18 16:22 Urine pH 7.0 (5.0-8.0) 06/08/18 16:22 Ur Specific [place] 1.008 (1.003-1.030) 06/08/18 16:22 Urine Protein Negative mg/dL (NEGATIVE) 06/08/18 16:22 Urine Glucose (UA) Neg mg/dL (NEGATIVE) 06/08/18 16:22 Urine Ketones Negative mg/dL (NEGATIVE) 06/08/18 16:22 Urine Blood Negative (NEGATIVE) 06/08/18 16:22 Urine Nitrate Negative (NEGATIVE) 06/08/18 16:22 Urine Bilirubin Negative (NEGATIVE) 06/08/18 16:22 Urine Urobilinogen 0.2-1.0 mg/dL (0.2-1.0) 06/08/18 16:22 Ur Leukocyte Esterase Mod Madhavi/uL (Negative) 06/08/18 16:22 Urine RBC (Auto) 3 /hpf (0-3) 06/08/18 16:22 Urine Microscopic WBC 30 /hpf (0-5) H 06/08/18 16:22 Ur Squamous Epith Cells < 1 /hpf (0-5) 06/08/18 16:22 Urine Bacteria Many (<OCC) H 06/08/18 16:22 - ECG O2 Sat by Pulse Oximetry: 96 (RA) Pulse Ox Interpretation: Normal Medical Decision Making Medical Decision Making: Time: 1625 A/P: Work up for uncontrolled Hypertension. Will give cardizem as patient is already on calcium channel arcelia. Cardiac work up, labs for possible dehydration and reassess patient. --EKG --Cardizem 5 mg IVP --Bactrim DS --[id number] mg IV --Urinalysis --Urine culture --Chest xray --CBC with differential --PT --PTT --BNP --BMP --Troponin I Time: 1728 Chest xray FINDINGS: LUNGS: No focal consolidation. Please note that chest x-ray has limited sensitivity for the detection of pulmonary masses. PLEURA: No significant pleural effusion identified. No definite pneumothorax . CARDIOVASCULAR: Heart size appears top normal. Aortic atherosclerotic calcifications. OSSEOUS STRUCTURES: Degenerative changes of the spine. VISUALIZED UPPER ABDOMEN: Elevation of the right hemidiaphragm. OTHER FINDINGS: None. IMPRESSION: No focal consolidation. Scribe Attestation: Documented by Patricio Fernández, acting as a scribe Lizet Castañeda MD. Provider Scribe Attestation: All medical record entries made by the Scribe were at my direction and personally dictated by me. I have reviewed the chart and agree that the record accurately reflects my personal performance of the history, physical exam, medical decision making, and the department course for this patient. I have also personally directed, reviewed, and agree with the discharge instructions and disposition. 2114 Pt with improved BP. Labs otherwise unremarkable. Started on Bactrim for UTI. Pt continues to deny chestpain, shortness of breath, or other new symptoms. Pt states she will be able to follow up with primary medical doctor tomorrow. Pt to be discharged with her nephew and return parameters discussed. Disposition - Clinical Impression Clinical Impression: Hypertension - Disposition Disposition: Routine/Home Disposition Time: 21:15 Condition: IMPROVED Instructions: High Blood Pressure (DC), High Blood Pressure Emergencies Forms: [employer] (Luxembourgish), [employer] (Greek)
[2018-06-08 20:53] VITALS: BP 178/83
[2018-06-08 21:29] VITALS: O2SAT 96
[2018-06-08 21:56] VITALS: PULSE 77; RESP 20
--- NOTE | 2018-06-09 10:05 | CARD ---
APPROVED REPORT Date of service: 06/08/2018 EKG Measurement Heart [id number] <Conclusion> Normal sinus rhythm Left axis deviation Voltage criteria for left ventricular hypertrophy Nonspecific ST abnormality Abnormal ECG
== END 2018-06-08 21:36 | disposition home or self-care (01) ==
LOC: H.ER 14:39
DX: I10 Essential (primary) hypertension (principal); Z86.59 Personal history of other mental and behavioral disorders; E11.9 Type 2 diabetes mellitus without complications
CPT/HCPCS: 71045; 80048; 81003; 83880; 84484; 85025; 85610; 85730; 87086; 87181; 93005; 96374; 96375; 96376; 99285; J0360